=== PATIENT | male | born 1975 | race Caucasian/White ===

== ENCOUNTER 2024-05-24 11:46 | Inpatient (IN) | payer MEDICAID ==
[2024-05-22 10:54] LABS: BASOPHILS % (AUTO) 0.4 % (0-1); EOSINOPHILS # (AUTO) 0.1 X10'3 (0-0.9); EOSINOPHILS % (AUTO) 0.7 % (0-6); LYMPHOCYTES # (AUTO) 2.5 X10'3 (1.1-4.8); LYMPHOCYTES % (AUTO) 24.1 % (21-51); MEAN CORPUSCULAR HEMOGLOBIN 31.5 PG (27.0-31.0); MEAN CORPUSCULAR HGB CONC 34.3 g/dL (33.0-36.5); MEAN CORPUSCULAR VOLUME 91.7 FL (78-98); MEAN PLATELET VOLUME 7.8 FL (7.4-10.4); MONOCYTES # (AUTO) 0.8 X10'3 (0-0.9); MONOCYTES % (AUTO) 8.3 % (2-12); NEUTROPHILS # (AUTO) 6.8 X10'3 (1.8-7.7); NEUTROPHILS % (AUTO) 66.5 % (42-75); PRE OP HEMATOCRIT 42.4 % (42.0-52.0); PRE OP HEMOGLOBIN 14.6 g/dL (14.0-17.9); PRE OP PLATELET COUNT 297 X10'3 (140-440); PRE OP WHITE BLOOD COUNT 10.2 10'3 (4.8-10.8); RED BLOOD COUNT 4.62 X10'6 (4.70-6.10)
[2024-05-22 10:56] LABS: BILIRUBIN,URINE NEGATIVE (Neg); CLARITY,URINE CLEAR (Clear); COLOR,URINE STRAW (Yellow); GLUCOSE, URINE NEGATIVE (Neg); KETONES,URINE NEGATIVE (Neg); LEUKOCYTE ESTERASE ,URINE NEGATIVE (Neg); NITRITES, URINE NEGATIVE (Neg); OCCULT BLOOD,URINE NEGATIVE (Neg); PROTEIN,URINE NEGATIVE (Neg); UROBILINOGEN,URINE 0.2 E.U/dL (0.2-1.0)
[2024-05-22 11:03] LABS: UA COLLECTION TYPE CLN CATCH MIDSTREAM
[2024-05-22 11:07] LABS: PRE OP PROTIME 10.8 SECONDS (9.0-12.0)
[2024-05-22 11:12] LABS: ALBUMIN 4.2 G/DL (3.4-5.0); ALBUMIN/GLOBULIN RATIO 1.1 (1.1-1.5); ALKALINE PHOSPHATASE 55 IU/L (46-116); BLOOD UREA NITROGEN 11 MG/DL (7-18); BUN/CREATININE RATIO 14.1 (10.0-20.0); CALCIUM 9.3 MG/DL (8.5-10.1); CHLORIDE 101 MMOL/L (99-107); CREATININE 0.78 MG/DL (0.60-1.10); PRE OP ALT 20 U/L (30-65); PRE OP ANION GAP 4 (8-16); PRE OP AST 16 U/L (10-37); PRE OP BILIRUB, TOTAL 0.3 MG/DL (0.0-1.0); PRE OP GLUCOSE 95 MG/DL (70-104); PRE OP POTASSIUM 3.5 MMOL/L (3.4-5.1); PRE OP SODIUM 140 MMOL/L (135-145); TOTAL PROTEIN 7.9 G/DL (6.4-8.2); eGFR > 90 ML/MIN
[2024-05-23 22:00] VITALS: BP 131/80; PULSE 69; RESP 18; TEMP 97.8; O2SAT 96
[~2024-05-24] VITALS: Ht 172.7 cm; Wt 82.2 kg
[2024-05-24] VITALS (20 sets, daily range): BP systolic 119–162; BP diastolic 57–105; PULSE 56–102; RESP 14–22; TEMP 98.4; O2SAT 90–98
[2024-05-24] MEDS: ceFAZolin 2gm in dextrose, iso 50 ML IV ONE (05:30)
[~2024-05-24 11:46] MED LIST: BUSP15TA7 PO; DOXY100T2 PO; ESCI-8 PO; GABA300C PO; HYDR25TA5 PO; LURA120T2 PO; OMEP40CA21 PO; ONDA-243 PO
[2024-05-24] MEDS: famotidine 20mg tablet PO ONE (12:46)
[2024-05-24] MEDS: ringers solution, lacted 1,000 ML IV SCH ×2 (12:47→22:12)
[2024-05-24] MEDS ORDERED: BUPIVAcaine 2.5mg/ml inj 50ml vial (contains preservative) ONE (14:12)
[2024-05-24] MEDS ORDERED: morphine 2 MG/ML inj. syringe IV PRN (14:20)
[2024-05-24] MEDS ORDERED: proCHLORperazine 10 MG/2 ml inj IV PRN (14:20)
[2024-05-24] MEDS ORDERED: labetalol 20mg/4ml (5mg/ml) syringe IV PRN (14:20)
[2024-05-24] MEDS ORDERED: HYDROmorphone/PF 0.2 MG/ML SYRINGE IV PRN (14:20)
[2024-05-24] MEDS ORDERED: meperidine/PF 25mg/ml syringe IV PRN (14:20)
[2024-05-24] MEDS ORDERED: hydrALAZINE 20mg/ml inj. IV PRN (14:20)
[2024-05-24] MEDS ORDERED: sevoflurane 250ml liquid IH ONE (14:21)
[2024-05-24] MEDS ORDERED: midazolam 1 mg/ML 2ml injection ONE (14:30)
[2024-05-24] MEDS ORDERED: dexamethasone sod phosphate 4mg/ml inj. ONE (14:56)
[2024-05-24] MEDS ORDERED: LIDOcaine 2% (20mg/ml) 5ml vial ONE (14:56)
[2024-05-24] MEDS ORDERED: ondansetron/PF 4mg/2ml inj ONE (14:56)
[2024-05-24] MEDS ORDERED: fentaNYL /PF 50mcg/ml 5ml ampule ONE (14:56)
[2024-05-24] MEDS ORDERED: propofol inj 20 ML IV ONE (14:56)
[2024-05-24] MEDS ORDERED: rocuronium 10mg/ml inj IV ONE ×2 (14:56→15:00)
[2024-05-24] MEDS ORDERED: neostigmine methylsulfate 1 MG/ML 10ml vial ONE (17:07)
[2024-05-24] MEDS ORDERED: glycopyrrolate 0.2mg/ml inj ONE (17:07)
[2024-05-24] MEDS ORDERED: sugammadex 200mg/2ml injection IV ONE (17:10)
[2024-05-24] MEDS: HYDROmorphone/PF 0.2 MG/ML SYRINGE IV PRN (17:27)
[2024-05-24] MEDS: acetaminophen 1,000mg/100ml IV 100 ML IV PRN (17:28)
[2024-05-24] MEDS ORDERED: naloxone 0.4 mg/ml inj IV PRN (17:35)
[2024-05-24] MEDS: morphine 4 MG/ML inj SYRINge IV PRN (17:41)
[2024-05-24] MEDS: HYDROcodone/acetaminophen 10/325mg tab PO PRN (17:53)
[2024-05-24] MEDS: HYDROmorphone inj. 0.5 MG/0.5 ML DISP.SYRIN IV PRN (22:06)
[2024-05-25 02:00] VITALS: BP 122/82; PULSE 71; RESP 18; TEMP 98; O2SAT 96
[2024-05-25 06:00] VITALS: BP 123/80; PULSE 73; RESP 18; TEMP 98.2; O2SAT 95
[2024-05-25 09:38] LABS: BASOPHILS % (AUTO) 0.3 % (0-1); EOSINOPHILS % (AUTO) 0.3 % (0-6); HEMATOCRIT 42.9 % (42.0-52.0); HEMOGLOBIN 14.4 g/dl (14.0-17.9); LYMPHOCYTES # (AUTO) 1.7 X10'3 (1.1-4.8); LYMPHOCYTES % (AUTO) 9.1 % (21-51); MEAN CORPUSCULAR HEMOGLOBIN 30.6 PG (27.0-31.0); MEAN CORPUSCULAR HGB CONC 33.5 g/dL (33.0-36.5); MEAN CORPUSCULAR VOLUME 91.4 FL (78-98); MONOCYTES # (AUTO) 1.6 X10'3 (0-0.9); MONOCYTES % (AUTO) 8.7 % (2-12); NEUTROPHILS # (AUTO) 14.9 X10'3 (1.8-7.7); NEUTROPHILS % (AUTO) 81.6 % (42-75); PLATELET COUNT 288 X10'3 (140-440); RED BLOOD COUNT 4.69 X10'6 (4.70-6.10); RED CELL DISTRIBUTION WIDTH 14.2 % (11.5-14.5); WHITE BLOOD COUNT 18.3 X10'3 (4.5-11.0)
[2024-05-25] MEDS: ceFOXitin sod/dextrose 2g/50ml 50 ML IV SCH (14:16)
[2024-05-25] MEDS: ondansetron/PF 4mg/2ml inj IV PRN (14:19)
[2024-05-25 18:00] VITALS: BP 173/87; PULSE 85; RESP 18; TEMP 98.2; O2SAT 96
[2024-05-25] MEDS: lurasidone 60mg tablet PO SCH (20:26)
[2024-05-25] MEDS: busPIRone 15mg tablet PO SCH (20:26)
[2024-05-25] MEDS: gabapentin 300mg capsule PO SCH (20:26)
[2024-05-25 22:00] VITALS: BP 131/85; PULSE 88; RESP 18; TEMP 97; O2SAT 92
[2024-05-26 06:00] VITALS: BP 161/94; PULSE 95; RESP 16; TEMP 97.5; O2SAT 93
[2024-05-26 07:48] VITALS: RESP 18; O2SAT 97
[2024-05-26 08:00] VITALS: RESP 18
[2024-05-26] MEDS: HYDROchlorothiazide 25mg tablet PO SCH (09:20)
[2024-05-26] MEDS: pantoprazole 40mg Tablet.DR PO SCH (09:20)
[2024-05-26] MEDS: ESCITALOPRAM 10 mg tablet 10 MG TABLET PO SCH (09:32)
[2024-05-26 12:21] VITALS: BP 150/93; PULSE 93; RESP 16; TEMP 97.2; O2SAT 96
[2024-05-26 15:17] LABS: BASOPHILS % (AUTO) 0.3 % (0-1); EOSINOPHILS # (AUTO) 0.3 X10'3 (0-0.9); EOSINOPHILS % (AUTO) 1.6 % (0-6); HEMATOCRIT 41.2 % (42.0-52.0); HEMOGLOBIN 14.1 g/dl (14.0-17.9); MEAN CORPUSCULAR HEMOGLOBIN 30.9 PG (27.0-31.0); MEAN CORPUSCULAR HGB CONC 34.1 g/dL (33.0-36.5); MEAN CORPUSCULAR VOLUME 90.7 FL (78-98); MEAN PLATELET VOLUME 7.4 FL (7.4-10.4); MONOCYTES # (AUTO) 1.4 X10'3 (0-0.9); MONOCYTES % (AUTO) 8.6 % (2-12); NEUTROPHILS # (AUTO) 12.7 X10'3 (1.8-7.7); NEUTROPHILS % (AUTO) 77.5 % (42-75); PLATELET COUNT 253 X10'3 (140-440); RED BLOOD COUNT 4.55 X10'6 (4.70-6.10); RED CELL DISTRIBUTION WIDTH 14.3 % (11.5-14.5); WHITE BLOOD COUNT 16.4 X10'3 (4.5-11.0)
[2024-05-26 18:02] VITALS: BP 142/81; PULSE 91; RESP 16; TEMP 98; O2SAT 97
[2024-05-26] MEDS: diatr meglu/diatrizoate 30ml oral sol.-(3 dose) bottle PO SCH (21:17)
[2024-05-27 06:00] VITALS: BP 124/69; PULSE 81; RESP 16; TEMP 98.2; O2SAT 96
[2024-05-27 08:00] VITALS: RESP 16; O2SAT 96
[2024-05-27 10:00] VITALS: BP 121/77; PULSE 88; RESP 14; TEMP 97.6; O2SAT 97
[2024-05-27 18:00] VITALS: BP 125/85; PULSE 86; RESP 16; TEMP 98.8; O2SAT 96
[2024-05-27 20:00] VITALS: RESP 16; O2SAT 96
[2024-05-27 22:00] VITALS: BP 119/78; PULSE 74; RESP 16; TEMP 97; O2SAT 95
[2024-05-28 06:00] VITALS: BP 112/82; PULSE 84; RESP 18; TEMP 97.5; O2SAT 96
[2024-05-28 06:10] LABS: BASOPHILS % (AUTO) 0.3 % (0-1); EOSINOPHILS # (AUTO) 0.4 X10'3 (0-0.9); HEMATOCRIT 39.9 % (42.0-52.0); HEMOGLOBIN 13.8 g/dl (14.0-17.9); LYMPHOCYTES % (AUTO) 16.5 % (21-51); MEAN CORPUSCULAR HEMOGLOBIN 31.4 PG (27.0-31.0); MEAN CORPUSCULAR HGB CONC 34.5 g/dL (33.0-36.5); MEAN CORPUSCULAR VOLUME 90.9 FL (78-98); MEAN PLATELET VOLUME 8.1 FL (7.4-10.4); MONOCYTES # (AUTO) 1.6 X10'3 (0-0.9); MONOCYTES % (AUTO) 12.8 % (2-12); NEUTROPHILS # (AUTO) 8.3 X10'3 (1.8-7.7); NEUTROPHILS % (AUTO) 67.4 % (42-75); PLATELET COUNT 272 X10'3 (140-440); RED BLOOD COUNT 4.39 X10'6 (4.70-6.10); WHITE BLOOD COUNT 12.4 X10'3 (4.5-11.0)
[2024-05-28 10:00] VITALS: BP 128/85; PULSE 94; RESP 16; TEMP 98; O2SAT 96
[2024-05-28] MEDS: HYDROcodone/acetaminophen 10/325mg tab PO PRN (11:21)
[2024-05-28 22:00] VITALS: BP 146/92; PULSE 94; RESP 16; TEMP 97.6; O2SAT 95
[2024-05-28] MEDS: magnesium hydroxide 30ml (MOM) UD suspension PO SCH (22:25)
[2024-05-29 06:00] VITALS: BP 112/74; PULSE 75; RESP 13; TEMP 98.4; O2SAT 94
[2024-05-29 10:00] VITALS: BP 135/86; PULSE 83; RESP 16; TEMP 98; O2SAT 93
[2024-05-29 19:00] VITALS: RESP 16; O2SAT 96
[2024-05-30 06:00] VITALS: BP 132/88; PULSE 85; RESP 16; TEMP 97.8; O2SAT 95
[2024-05-30 10:00] VITALS: BP 133/81; PULSE 86; RESP 18; TEMP 98.1; O2SAT 94
[2024-05-30 15:45] VITALS: RESP 15
== END 2024-05-30 16:35 | disposition home or self-care (01) | DRG 224 ==
LOC: PAS 11:46 → OBSVTOIN 17:34 → ORTHO 4S 17:34
PROVIDERS: ADMIT Surgery; ATTEND Surgery
PROC: 0DN84ZZ Release Small Intestine, Percutaneous Endoscopic Approach (ICD-10-PCS; 2024-05-24)
PROC: 0WUF4JZ Supplement Abdominal Wall with Synthetic Substitute, Percutaneous Endoscopic Approach (ICD-10-PCS; principal; 2024-05-24 14:21)
DX: K43.2 Incisional hernia without obstruction or gangrene (principal); K66.0 Peritoneal adhesions (postprocedural) (postinfection); Z88.8 Allergy status to other drugs, medicaments and biological substances
CPT/HCPCS: 36415; 71045; 74176; 80053; 81003; 82948; 85025; 85610; 85730; 86885; 86900; 86901; 87081; 93005; A4215; A4615; A4618; A6222; A6223; A6253; A6258; C1758; C1781; G0378; J0131; J0690; J0694; J1100; J1171; J2003; J2250; J2270; J2405; J2704; J2710; J3010; J3490; J7040; J7120; Q9963

== ENCOUNTER 2024-08-15 08:09 | Outpatient (CLI) | payer MEDICAID ==
[~2024-08-15 08:09] MED LIST changes: -DOXY100T2 PO
--- NOTE | 2024-08-15 09:00 | RADIOLOGY REPORT ---
CT ABDOMEN AND PELVIS WITHOUT CONTRAST CLINICAL HISTORY: ABDOMINAL PAIN S/P INCISIONAL HERNIA TECHNIQUE: Multiple contiguous axial images of the abdomen and pelvis without intravenous and with or al contrast. The images were reformatted degenerate coronal and sagittal reconstructions. All CT scans at this medical facility are performed using dose modulation techniques as appropriate t o a performed exam including the following:Automated exposure control was utilized; adjustment of the MA and/or KV according to patient size; and use of iterative reconstruction technique. Radiation Dose Information: CT Dose: CTDI volume is 12 mGy. Dose-length product is 626 mGy*cm Comparison: 05/27/2024 FINDINGS: Evaluation of the abdomen and pelvis is limited without intravenous contrast. The gallbladder is surgically absent. The liver, pancreas, kidneys, adrenal glands, and spleen britta ear within normal limits. There is no gross evidence of abdominal lymphadenopathy. There is no free fluid or free air. There is oral contrast in the small and large bowel. The stomach grossly appears within normal limits . The small and large bowel loops demonstrate normal caliber. There are diverticula in the sigmoid co sarah without evidence of acute diverticulitis. The appendix is not seen in the right lower quadrant ab domen. There are no secondary signs of acute appendicitis. The abdominal aorta and IVC appear within normal limits. The bladder appears unremarkable. There is a penile pump reservoir in the left upper abdomen which appears uncomplicated. Pelvic organ appears within normal limits. There is no evidence of a pelvic mass or lymphadenopathy. There is no free flu id collection. The lung bases are clear. There is no acute osseous abnormality. IMPRESSION: 1. There is no acute process in the abdomen and pelvis. 2. Sigmoid diverticulosis without evidence of acute diverticulitis. HS:Y
== END 2024-08-15 23:59 | disposition home or self-care (01) ==
LOC: RAD 08:09
PROVIDERS: ATTEND Surgery
DX: K57.30 Diverticulosis of large intestine without perforation or abscess without bleeding (principal); R10.9 Unspecified abdominal pain
CPT/HCPCS: 74176

== ENCOUNTER 2024-09-27 06:07 | Inpatient (IN) | payer MEDICAID ==
[2024-09-25 14:06] LABS: BASOPHILS # (AUTO) 0.1 X10'3 (0-0.2); BASOPHILS % (AUTO) 0.7 % (0-1); EOSINOPHILS # (AUTO) 0.1 X10'3 (0-0.9); EOSINOPHILS % (AUTO) 1.2 % (0-6); LYMPHOCYTES # (AUTO) 2.9 X10'3 (1.1-4.8); LYMPHOCYTES % (AUTO) 36.2 % (21-51); MEAN CORPUSCULAR HEMOGLOBIN 30.5 PG (27.0-31.0); MEAN CORPUSCULAR HGB CONC 34.5 g/dL (33.0-36.5); MEAN CORPUSCULAR VOLUME 88.6 FL (78-98); MEAN PLATELET VOLUME 7.4 FL (7.4-10.4); MONOCYTES # (AUTO) 0.8 X10'3 (0-0.9); NEUTROPHILS # (AUTO) 4.1 X10'3 (1.8-7.7); NEUTROPHILS % (AUTO) 51.9 % (42-75); PRE OP HEMATOCRIT 45.2 % (42.0-52.0); PRE OP HEMOGLOBIN 15.6 g/dL (14.0-17.9); PRE OP PLATELET COUNT 304 X10'3 (140-440); PRE OP WHITE BLOOD COUNT 7.9 10'3 (4.8-10.8); RED CELL DISTRIBUTION WIDTH 13.9 % (11.5-14.5)
[2024-09-25 14:12] LABS: BILIRUBIN,URINE NEGATIVE (Neg); CLARITY,URINE CLEAR (Clear); COLOR,URINE YELLOW (Yellow); GLUCOSE, URINE NEGATIVE (Neg); KETONES,URINE NEGATIVE (Neg); LEUKOCYTE ESTERASE ,URINE NEGATIVE (Neg); NITRITES, URINE NEGATIVE (Neg); OCCULT BLOOD,URINE NEGATIVE (Neg); PROTEIN,URINE NEGATIVE (Neg); UROBILINOGEN,URINE 0.2 E.U/dL (0.2-1.0)
[2024-09-25 14:16] LABS: UA COLLECTION TYPE CLN CATCH MIDSTREAM
[2024-09-25 14:31] LABS: PRE OP PROTIME 10.6 SECONDS (9.0-12.0)
[2024-09-25 14:35] LABS: ALBUMIN/GLOBULIN RATIO 1.3 (1.1-1.5); ALKALINE PHOSPHATASE 63 IU/L (46-116); BLOOD UREA NITROGEN 10 MG/DL (7-18); BUN/CREATININE RATIO 9.8 (10.0-20.0); CALCIUM 9.2 MG/DL (8.5-10.1); CHLORIDE 103 MMOL/L (99-107); CREATININE 1.02 MG/DL (0.60-1.10); PRE OP ALT 19 U/L (30-65); PRE OP ANION GAP 11 (8-16); PRE OP AST 18 U/L (10-37); PRE OP BILIRUB, TOTAL 0.3 MG/DL (0.0-1.0); PRE OP GLUCOSE 96 MG/DL (70-104); PRE OP POTASSIUM 3.8 MMOL/L (3.4-5.1); PRE OP SODIUM 143 MMOL/L (135-145); TOTAL PROTEIN 7.2 G/DL (6.4-8.2); eGFR 79 ML/MIN
[2024-09-27] VITALS (24 sets, daily range): BP systolic 116–163; BP diastolic 69–98; PULSE 56–86; RESP 12–20; TEMP 97.9–99.1; O2SAT 90–98
[~2024-09-27] VITALS: Ht 172.7 cm; Wt 73.6 kg
[2024-09-27] MEDS: ceFOXitin sod/dextrose 2g/50ml 50 ML IV ONE (05:30)
[2024-09-27] MEDS: famotidine 20mg tablet PO ONE (06:32)
[2024-09-27] MEDS: ringers solution, lacted 1,000 ML IV SCH ×2 (06:32→08:30)
[2024-09-27] MEDS ORDERED: BUPIVAcaine 2.5mg/ml inj 50ml vial (contains preservative) ONE (06:46)
[2024-09-27] MEDS ORDERED: BUPIVACAINE liposomal/PF 13.3 MG/ML 10mL vial IM ONE (06:47)
[2024-09-27] MEDS ORDERED: ondansetron/PF 4mg/2ml inj ONE (07:45)
[2024-09-27] MEDS ORDERED: rocuronium 10mg/ml inj IV ONE ×2 (07:45→09:47)
[2024-09-27] MEDS ORDERED: midazolam 1 mg/ML 2ml injection ONE (07:45)
[2024-09-27] MEDS ORDERED: fentaNYL /PF 50mcg/ml 5ml ampule ONE (07:45)
[2024-09-27] MEDS ORDERED: dexamethasone sod phosphate 4mg/ml inj. ONE (07:45)
[2024-09-27] MEDS ORDERED: propofol inj 20 ML IV ONE (07:46)
[2024-09-27] MEDS ORDERED: LIDOcaine 2% (20mg/ml) 5ml vial ONE (07:46)
[2024-09-27] MEDS ORDERED: ondansetron/PF 4mg/2ml inj IV PRN (08:30)
[2024-09-27] MEDS ORDERED: hydrALAZINE 20mg/ml inj. IV PRN (08:30)
[2024-09-27] MEDS ORDERED: fentaNYL/PF 50MCG/1 ML 2ML syringe IV PRN (08:30)
[2024-09-27] MEDS ORDERED: meperidine/PF 25mg/ml syringe IV PRN (08:30)
[2024-09-27] MEDS ORDERED: labetalol 20mg/4ml (5mg/ml) syringe IV PRN (08:30)
[2024-09-27] MEDS ORDERED: ketamine 50mg/5ml syringe IV PRN (08:30)
[2024-09-27] MEDS ORDERED: dexmedetomidine 200mcg/2ml inj. IV ONE (08:36)
[2024-09-27] MEDS ORDERED: acetaminophen 1,000mg/100ml IV 100 ML IV ONE (08:43)
[2024-09-27] MEDS ORDERED: sevoflurane 250ml liquid IH ONE (09:00)
[2024-09-27] MEDS ORDERED: hydrALAZINE 20mg/ml inj. ONE (09:14)
[2024-09-27] MEDS ORDERED: labetalol 20mg/4ml (5mg/ml) syringe IV ONE (09:23)
[2024-09-27] MEDS: BUPIVAcaine/PF 2.5 mg/ml (0.25%) 30ml vial IJ ONE (09:36)
[2024-09-27] MEDS ORDERED: sugammadex 200mg/2ml injection IV ONE (10:16)
--- NOTE | 2024-09-27 11:32 | OPERATIVE REPORT ---
Operative Report Providers to CC ~ Date of Procedure: Sep 27, 2024 Pre-Operative Diagnosis: recurrent incisional hernia Post-Operative Diagnosis SAME as PRE-Op Procedure Performed robo santo/repair incisional hernia Surgeon: maria eugenia davies Anesthesiologist: Chucho Callahan Type of Anesthesia: General Findings: small incisional hernia Estimated Blood Loss: 100 ml Specimen Removed: none ANGELITO DURBIN MD Sep 27, 2024 11:32
[2024-09-27] MEDS ORDERED: naloxone 0.4 mg/ml inj IV PRN (11:40)
[2024-09-27] MEDS: potassium CL 20mEq in D5-1/2NS 1,000 ML IV SCH (11:40)
[2024-09-27] MEDS ORDERED: PCA WASTE DOCUMENTATION 1 MG ML MC SCH (11:40)
[2024-09-27] MEDS: fentaNYL/PF 50MCG/1 ML 2ML syringe IV PRN (12:29)
[2024-09-27] MEDS: ketorolac trometh 15mg/ml vial 15 MG/ML ML IV ONE (12:30)
[2024-09-27] MEDS: HYDROmorphone/PF 0.2 MG/ML SYRINGE IV PRN ×2 (13:58→16:02)
--- NOTE | 2024-09-27 15:36 | OPERATIVE REPORT ---
DATE OF SURGERY: 09/27/2024 DICTATING PHYSICIAN: Heladio Westbrook MD PREOPERATIVE DIAGNOSIS: Recurrent incisional hernia. POSTOPERATIVE DIAGNOSIS: Recurrent incisional hernia. PROCEDURES PERFORMED: * Robotic repair of recurrent incisional hernia less than 3 cm. * Robotic lysis of adhesions. SURGEON: Heladio Westbrook MD COMMISSION BROKER: None. ANESTHESIA: General/Dr. Callahan. DRAINS: None. INDICATIONS FOR OPERATION: A 48-year-old male who developed a recurrent incisional hernia, taken to Surgery for repair. INTRAOPERATIVE FINDINGS: The patient had extensive adhesions, had a small recurrent incisional hernia. DESCRIPTION OF PROCEDURE: The patient was placed supine on the operating table. After induction of general anesthesia and placement of endotracheal tube, the abdomen was prepped and draped. A timeout was performed. Veress needle was placed in Gamble's point. CO2 was used to insufflate the abdominal cavity. Visiport was used to access the abdominal cavity. Robotic ports were placed under laparoscopic vision. Robot was brought to the field. Camera port docked, camera placed, camera targeted. Additional ports were then docked and instruments placed. Abdomen was then explored. The patient had extensive adhesions, taken down robotically. After mobilization and takedown of the adhesions, a small defect was present. A piece of mesh was then brought and secured in place with a 15 x 20 piece of mesh using sutures of 2-0 V-Loc. Abdomen was copiously irrigated with a large amount of antibiotic-containing solution. Hemostasis was found to be adequate. Robotic instruments were removed. Robot undocked from the field. Visiport was then removed and the defect was closed using sutures of #1 Vicryl. Pneumoperitoneum was then evacuated. The wounds were closed in layers. Skin was closed with clips. Dressings were applied, and the patient was transferred to recovery in stable condition. Heladio Westbrook MD TID: [id number] RECEIPT: [id number] TIFFANIE/YOK
[2024-09-27] MEDS: HYDROcodone/acetaminophen 10/325mg tab PO PRN (17:48)
[2024-09-27] MEDS: ondansetron/PF 4mg/2ml inj IV PRN (19:10)
[2024-09-27] MEDS: ceFAZolin 1GM/D5W- ADD-VANTAGE 50 ML IV SCH (21:09)
[2024-09-27] MEDS: HYDROmorphone inj. 0.5 MG/0.5 ML DISP.SYRIN IV PRN (23:38)
[2024-09-28] VITALS (7 sets, daily range): BP systolic 141–196; BP diastolic 98–125; PULSE 75–132; RESP 18–22; TEMP 97.8–98.4; O2SAT 94–95
[2024-09-28] MEDS: hydrALAZINE 20mg/ml inj. IV PRN (03:06)
[2024-09-28] MEDS: acetaminophen 1,000mg/100ml IV 100 ML IV ONE (06:08)
[2024-09-28 06:31] LABS: BASOPHILS % (AUTO) 0.1 % (0-1); EOSINOPHILS % (AUTO) 0 % (0-6); HEMATOCRIT 46.2 % (42.0-52.0); HEMOGLOBIN 15.6 g/dl (14.0-17.9); LYMPHOCYTES # (AUTO) 0.6 X10'3 (1.1-4.8); LYMPHOCYTES % (AUTO) 2.4 % (21-51); MEAN CORPUSCULAR HEMOGLOBIN 30.1 PG (27.0-31.0); MEAN CORPUSCULAR HGB CONC 33.7 g/dL (33.0-36.5); MEAN CORPUSCULAR VOLUME 89.2 FL (78-98); MONOCYTES # (AUTO) 1.6 X10'3 (0-0.9); MONOCYTES % (AUTO) 6.8 % (2-12); NEUTROPHILS # (AUTO) 21.8 X10'3 (1.8-7.7); NEUTROPHILS % (AUTO) 90.7 % (42-75); PLATELET COUNT 287 X10'3 (140-440); RED BLOOD COUNT 5.18 X10'6 (4.70-6.10); RED CELL DISTRIBUTION WIDTH 14.2 % (11.5-14.5)
--- NOTE | 2024-09-28 06:37 | RADIOLOGY REPORT ---
Exam: DI ABDOMEN,SINGLE VIEW(KUB) Indication: ABDOMINAL PAIN Comparison: None Technique: 2 radiographic views of the abdomen. Findings: Moderate colonic stool. Nonobstructive bowel gas pattern noted. There is no definite evidence for pneumoperitoneum. No abnormal calcifications noted. Impression: Moderate colonic stool.
[2024-09-28 06:44] LABS: ALBUMIN 3.3 G/DL (3.4-5.0); ALKALINE PHOSPHATASE 51 IU/L (46-116); ANION GAP 8 (8-16); ASPARTATE AMINO TRANSFERASE 25 U/L (10-37); BILIRUBIN,TOTAL 0.5 MG/DL (0.1-1.0); BLOOD UREA NITROGEN 7 MG/DL (7-18); BUN/CREATININE RATIO 9.6 (10.0-20.0); CALCIUM 8.2 MG/DL (8.5-10.1); CHLORIDE 105 MMOL/L (99-107); CREATININE 0.73 MG/DL (0.60-1.10); GLUCOSE 158 MG/DL (70-104); POTASSIUM 3.3 MMOL/L (3.5-5.1); SODIUM 140 MMOL/L (135-145); TOTAL CARBON DIOXIDE 26.9 MMOL/L (24-32); TOTAL PROTEIN 6.5 G/DL (6.4-8.2); eCRCL 122 ML/MIN; eGFR > 90 ML/MIN
[2024-09-28 07:00] LABS: ALANINE AMINOTRANSFERASE 15 U/L (12-78)
[2024-09-28] MEDS: lurasidone 60mg tablet PO ONE (10:55)
--- NOTE | 2024-09-28 11:22 | PROGRESS NOTE ---
Progress Note ID Providers to CC ~ Progress Note Progress Note: complains of pain/vss/abd-mild distention/labs noted a/p 1. s/p incisional hernia-slow progress/cont antbix ANGELITO DURBIN MD Sep 28, 2024 11:22
[2024-09-28] MEDS: metoclopramide 5 mg/ml inj IV SCH (13:24)
[2024-09-28] MEDS: HYDROmorphone 1 mg/ml syringe IV PRN (13:51)
[2024-09-28] MEDS: ketorolac trometh 30MG/ML vial 30 MG/ML VIAL IM PRN (13:51)
[2024-09-28] MEDS: ceFOXitin sod/dextrose 2g/50ml 50 ML IV SCH (13:51)
[2024-09-28] MEDS ORDERED: potassium Cl 40MEQ/1/2NS 520ml 520 ML IV PRN (14:15)
[2024-09-28] MEDS ORDERED: potassium Cl 20 mEq SR tablet PO PRN (14:15)
[2024-09-28] MEDS: magnesium hydroxide 30ml (MOM) UD suspension PO SCH (19:45)
[2024-09-29 02:00] VITALS: BP 146/72; PULSE 82; RESP 20; TEMP 98.3; O2SAT 96
[2024-09-29 06:49] VITALS: BP 124/85; PULSE 118; RESP 20; TEMP 98.7; O2SAT 94
[2024-09-29 08:00] VITALS: RESP 18
[2024-09-29] MEDS ORDERED: naloxone 0.4 mg/ml inj IV PRN (10:30)
[2024-09-29 10:51] LABS: BASOPHILS % (AUTO) 0.1 % (0-1); EOSINOPHILS % (AUTO) 0.2 % (0-6); HEMOGLOBIN 15.2 g/dl (14.0-17.9); LYMPHOCYTES # (AUTO) 0.6 X10'3 (1.1-4.8); LYMPHOCYTES % (AUTO) 4.3 % (21-51); MEAN CORPUSCULAR HEMOGLOBIN 30.1 PG (27.0-31.0); MEAN CORPUSCULAR HGB CONC 33.9 g/dL (33.0-36.5); MEAN CORPUSCULAR VOLUME 88.8 FL (78-98); MEAN PLATELET VOLUME 8.2 FL (7.4-10.4); MONOCYTES # (AUTO) 0.7 X10'3 (0-0.9); MONOCYTES % (AUTO) 4.9 % (2-12); NEUTROPHILS # (AUTO) 13.3 X10'3 (1.8-7.7); NEUTROPHILS % (AUTO) 90.5 % (42-75); PLATELET COUNT 288 X10'3 (140-440); RED BLOOD COUNT 5.07 X10'6 (4.70-6.10); WHITE BLOOD COUNT 14.6 X10'3 (4.5-11.0)
--- NOTE | 2024-09-29 10:51 | PROGRESS NOTE ---
Progress Note ID Providers to CC ~ Progress Note Progress Note: complains of pain/vss/abd-nondistended/labs pending a/p 1. s/p robo hernia repair/hris specialist ANGELITO DURBIN MD Sep 29, 2024 10:51
[2024-09-29] MEDS: HYDROmorph/NS 0.2 mg/ml PCA 100 ML IV SCH (11:00)
[2024-09-29] MEDS: pantoprazole 40mg Tablet.DR PO SCH (11:10)
[2024-09-29 14:30] VITALS: BP 146/99; PULSE 123; RESP 14; TEMP 98; O2SAT 95
[2024-09-29 18:00] VITALS: BP 148/107; PULSE 132; RESP 16; TEMP 98.7; O2SAT 93
[2024-09-29] MEDS: potassium Cl 20 mEq SR tablet PO PRN (19:57)
[2024-09-29] MEDS ORDERED: ondansetron 4mg rapidly disintigrating tab PO PRN (20:45)
[2024-09-29] MEDS: busPIRone 15mg tablet PO SCH (21:10)
[2024-09-29] MEDS: ESCITALOPRAM 10 mg tablet 10 MG TABLET PO SCH (21:11)
[2024-09-29] MEDS: HYDROchlorothiazide 25mg tablet PO SCH (21:11)
[2024-09-29] MEDS: gabapentin 300mg capsule PO SCH (21:12)
[2024-09-29 22:00] VITALS: BP 143/94; PULSE 130; RESP 20; TEMP 97.6; O2SAT 94
[2024-09-29] MEDS: lurasidone 60mg tablet PO SCH (22:02)
[2024-09-30 06:00] VITALS: BP 149/99; PULSE 131; RESP 24; TEMP 98; O2SAT 93
[2024-09-30] MEDS: ketorolac trometh 30MG/ML vial 30 MG/ML VIAL IV PRN (07:09)
[2024-09-30] MEDS: PCA WASTE DOCUMENTATION 1 MG ML MC SCH (07:38)
[2024-09-30] MEDS: pantoprazole 40mg Tablet.DR PO SCH (09:48)
[2024-09-30 11:00] VITALS: BP 168/110; PULSE 116; RESP 15; TEMP 98.7; O2SAT 97
--- NOTE | 2024-09-30 15:40 | PROGRESS NOTE ---
Progress Note ID Providers to CC ~ Progress Note Progress Note: pain improving/vss/abd-mild distention/wbc improving a/p 1. s/p repair incisional hernia-cont mefoxin/cont supportive care ANGELITO DURBIN MD Sep 30, 2024 15:40
[2024-09-30 18:00] VITALS: BP 154/97; PULSE 121; RESP 19; TEMP 99.1; O2SAT 94
[2024-09-30 20:00] VITALS: RESP 19; O2SAT 94
[2024-09-30 22:00] VITALS: BP 150/89; PULSE 124; RESP 23; TEMP 98.2; O2SAT 90
[2024-10-01 06:00] VITALS: BP 147/89; PULSE 120; RESP 18; TEMP 97.8; O2SAT 90
[2024-10-01 08:00] VITALS: RESP 18; O2SAT 90
[2024-10-01 09:47] LABS: BASOPHILS % (AUTO) 0.1 % (0-1); EOSINOPHILS # (AUTO) 0.1 X10'3 (0-0.9); EOSINOPHILS % (AUTO) 0.7 % (0-6); HEMATOCRIT 34.8 % (42.0-52.0); HEMOGLOBIN 11.9 g/dl (14.0-17.9); LYMPHOCYTES # (AUTO) 0.5 X10'3 (1.1-4.8); LYMPHOCYTES % (AUTO) 4.4 % (21-51); MEAN CORPUSCULAR HEMOGLOBIN 30.5 PG (27.0-31.0); MEAN CORPUSCULAR HGB CONC 34.2 g/dL (33.0-36.5); MEAN CORPUSCULAR VOLUME 89.3 FL (78-98); MEAN PLATELET VOLUME 8.5 FL (7.4-10.4); MONOCYTES # (AUTO) 1.6 X10'3 (0-0.9); MONOCYTES % (AUTO) 13.1 % (2-12); NEUTROPHILS # (AUTO) 9.9 X10'3 (1.8-7.7); NEUTROPHILS % (AUTO) 81.7 % (42-75); PLATELET COUNT 233 X10'3 (140-440); RED CELL DISTRIBUTION WIDTH 13.7 % (11.5-14.5); WHITE BLOOD COUNT 12.2 X10'3 (4.5-11.0)
[2024-10-01 10:00] VITALS: BP 158/101; PULSE 118; RESP 18; TEMP 97.7; O2SAT 93
[2024-10-01 11:20] LABS: PLATELET ESTIMATE NORMAL; TOTAL CELLS COUNTED 100
--- NOTE | 2024-10-01 17:08 | PROGRESS NOTE ---
Progress Note ID Providers to CC ~ Progress Note Progress Note: pain improving/vss/abd-mild distention/wbc improving a/p 1. s/p repair incisional hernia-slow progress/advance po ANGELITO DURBIN MD Oct 01, 2024 17:08
[2024-10-01 18:00] VITALS: BP 153/94; PULSE 115; RESP 18; TEMP 97.9; O2SAT 91
[2024-10-01 22:00] VITALS: BP 157/97; PULSE 133; RESP 22; TEMP 97.7; O2SAT 94
[2024-10-02] VITALS (9 sets, daily range): BP systolic 129–187; BP diastolic 80–102; PULSE 85–121; RESP 14–19; TEMP 97.6–98.3; O2SAT 87–95
[2024-10-02] MEDS: furosemide 20 MG/2 ML vial IV ONE (02:04)
[2024-10-02] MEDS: metoprolol tartrate 25mg tablet PO SCH (05:25)
[2024-10-02 10:57] LABS: ALBUMIN 1.9 G/DL (3.4-5.0); ANION GAP 7 (8-16); BLOOD UREA NITROGEN 9 MG/DL (7-18); BUN/CREATININE RATIO 9.9 (10.0-20.0); CALCIUM 8.2 MG/DL (8.5-10.1); CHLORIDE 94 MMOL/L (99-107); CREATININE 0.91 MG/DL (0.60-1.10); GLUCOSE 125 MG/DL (70-104); POTASSIUM 3.7 MMOL/L (3.5-5.1); SODIUM 132 MMOL/L (135-145); TOTAL CARBON DIOXIDE 30.6 MMOL/L (24-32); eCRCL 98 ML/MIN; eGFR 90 ML/MIN
[2024-10-02] MEDS: lactose-reduced food (Ensure Enlive) - 237ml bottle PO SCH (13:00)
[2024-10-02] MEDS: HYDROcodone/acetaminophen 10/325mg tab PO PRN (15:54)
--- NOTE | 2024-10-02 16:54 | PROGRESS NOTE ---
Progress Note ID Providers to CC ~ Progress Note Progress Note: doing well/home in am ANGELITO DURBIN MD Oct 02, 2024 16:54
[2024-10-03 06:00] VITALS: BP 139/90; PULSE 91; RESP 18; TEMP 98; O2SAT 94
[2024-10-03] MEDS: traMADol 50MG tablet PO PRN (09:09)
[2024-10-03 10:00] VITALS: BP 123/78; PULSE 86; RESP 18; TEMP 98.1; O2SAT 92
[2024-10-03 15:10] VITALS: RESP 16
--- NOTE | 2024-10-03 17:41 | PROGRESS NOTE ---
Progress Note ID Providers to CC ~ Progress Note Progress Note: doing well/dc ANGELITO DURBIN MD Oct 03, 2024 17:41
== END 2024-10-03 15:55 | disposition home or self-care (01) | DRG 227 ==
LOC: PAS 06:07 → PAS IN 11:38 → OBSVTOIN 11:38 → SUR 3N 17:21
PROVIDERS: ADMIT Surgery; ATTEND Surgery
PROC: 8E0W4CZ Robotic Assisted Procedure of Trunk Region, Percutaneous Endoscopic Approach (ICD-10-PCS; 2024-09-27)
PROC: 0WUF4JZ Supplement Abdominal Wall with Synthetic Substitute, Percutaneous Endoscopic Approach (ICD-10-PCS; principal; 2024-09-27 08:30)
DX: K43.2 Incisional hernia without obstruction or gangrene (principal); K66.0 Peritoneal adhesions (postprocedural) (postinfection); Z88.8 Allergy status to other drugs, medicaments and biological substances
CPT/HCPCS: 36415; 74018; 80048; 80053; 81003; 82948; 83605; 84132; 84145; 85007; 85025; 85610; 85730; 87081; A4215; A4615; A4618; C1781; G0378; J0131; J0360; J0666; J0690; J0694; J1100; J1171; J1885; J1938; J2003; J2250; J2405; J2704; J2765; J3010; J3480; J3490; J7030; J7040; J7120

== ENCOUNTER 2024-10-13 21:54 | Inpatient (IN) | payer MEDICAID ==
[~2024-10-13] VITALS: Ht 172.7 cm; Wt 68.2 kg
--- NOTE | 2024-10-13 22:10 | Physician Documentation ---
History of Present Illness Chief Complaint: Abdominal Pain Stated Complaint: ABD PAIN Time Seen by MD: 22:10 OK to notify your PCP?: Yes Primary Medical Doctor: TERRANCE RANDHAWA Source: patient, RN/MD, EMS, RN notes reviewed, EMS notes reviewed, old records Mode of Arrival: EMS Exam Limitations: no limitations HPI This patient is a 48-year-old male transferred via EMS to our facility from [facility] for postoperative abdominal abscess. Patient initially presented with increased redness and drainage from his surgical site. Patient's surgery was a proximally three weeks ago and was done by surgeon, Dr. Dobbs. Patient's labs confirmed that he had a white blood cell count of 14.1 and a low potassium of 2.8 which was replaced at the outside facility. Patient was treated with 500 mg of Keflex and 4.5 mg and Zosyn prior to arrival. Patient denies any other associated symptoms at this time. Patient denies any other alleviating or exacerbating factors. Medication Reconciliation Allergies: Coded Allergies: trazodone (Verified Allergy, Unknown, gave me an erection for 5 days, 06/10/14) dicyclomine (Verified Adverse Reaction, Unknown, SWOLLEN STOMACH, 05/22/24) Scheduled Buspirone HCl (Buspirone HCl), 1 TAB PO TID, (Reported) Fluoxetine Hcl* (Prozac*), 1 CAP PO DAILY, (Reported) Gabapentin (Neurontin), 1 CAP PO QID, (Reported) Hydrochlorothiazide (Hydrochlorothiazide), 1 TAB PO DAILY, (Reported) Lisinopril* (Lisinopril*), 1 TAB PO DAILY, (Reported) Omeprazole (Prilosec), 1 CAP PO DAILY, (Reported) Scheduled PRN ONDANSETRON ODT 4mg tablet (Ondansetron Odt), 1 TAB PO DAILY PRN for nausea/vomiting, (Reported) Discontinued Medications Escitalopram Oxalate (Escitalopram Oxalate), 1 TAB PO DAILY, (Reported) Discontinued Reason: patient no longer taking Lurasidone HCl (Lurasidone HCl), 1 TAB PO HS, (Reported) Discontinued Reason: patient no longer taking Past Medical History Past Medical History: Hypertension, Diverticulosis, GERD, Hernia Past Surgical History: abdominal surgery, cholecystectomy Other Past Surgical History: Hernia Repair Smoking Status: Never smoker Alcohol Use: Occasionally Drug Use: marijuana Lives with: Family Lives In: Home Occupation: unemployed Review of Systems All Other Systems at this time: Reviewed and Negative Gastrointestinal: Reports: abdominal pain Physical Exam Vital Signs: RN Vital Signs have been reviewed: Yes, Temperature: 98.8, Source: Oral, Heart Rate: 75, Respiratory Rate: 16, BP: 126/77, Pulse Oximetry: 92, Weight: 72.500 Oxygen Flow Rate: 0 Physical Exam General: The patient is well developed, well nourished, nontoxic appearing and is in no acute distress. Skin: (SEE ABD) Delia, warm and dry with no rashes. HEENT: Head was normocephalic and atraumatic. Eyes - pupils equal, round, reactive to light and accommodation. Extraocular movements were intact. Conjunctivae were nonicteric. Ears - bilateral tympanic membranes were normal. The mouth and oropharynx were clear with moist mucous membranes. There were no pharyngeal exudates or erythema. Neck: Supple and nontender. There was no jugular venous distention, lymphadenopathy, thyromegaly or masses. Chest: Trace wheezing on auscultation, without rales or rhonchi. No accessory muscle use. No dullness to percussion. Heart: Rate regular and rhythmic. S1, S2. No murmurs. Palpation of the chest wall was normal. No rubs or thrills. Abdomen: Training, has been abdomen. Soft, nontender and nondistended. Positive bowel sounds. No guarding or rebound. No hepatosplenomegaly or palpable masses. Extremities: No cyanosis, clubbing or edema. The patient moves all extremities. Pulses were equal and symmetric. Neurologic: Cranial nerves II-XII were intact. Sensation was intact to light touch throughout. Motor strength was 5/5 in all four extremities. Deep tendon reflexes were intact in both upper and lower extremities. Psychologic: The patient was oriented to person, place and time. The patient demonstrated appropriate judgement and insight. Progress Progress Note 2223: Message left with patient's surgeon, Dr. Westbrook for consult. 2239: Paged Hospitalist 2241: Dr. Westbrook contacted and case discussed, agrees to consult. 2323: Discussed case with hospitalist who agrees to evaluate patient for admission. CT abdomen/pelvis from [facility]. Impressions: 1. Postsurgical changes related to recent ventral hernia repair. 2. Multiple communicating rim enhancing fluid and gas containing collections in the anterior abdominal wall and throughout the abdomen and pelvis. 3. Small volume pneumoperitoneum, likely postsurgical. 4. Colonic diverticulosis without diverticulitis Results/Orders Reviewed/noted all lab results: Yes Results/Orders Orders - DIANA CHEW MD Urinalysis, Cult If Indicated (10/13/24 22:04) Cbc/Diff (10/13/24 22:04) BMP (10/13/24 22:04) Lipase (10/13/24 22:04) CMP (10/13/24 22:04) Vital Signs 10/13/24 21:55 Temp 98.8 Pulse 75 Resp 16 B/P (MAP) 126/77 Pulse Ox 92 O2 Flow Rate 0 Re-Evaluation Re-Evaluation : Re-Evaluation: Improved Progress Patient was seen and examined. Patient is given reassurance. The patient was transferred from another facility for continuity care. Patient received pain medications antibiotics were already given prior to arrival. I discussed the case with the hospitalist who kindly agreed to admit the patient for further workup and care. Patient is feeling much better. No signs of sepsis at this time. Cultured. I then discussed the case with the hospitalist as well as the general surgeon. He is aware of the patient and will consult in the morning. Continuous employee representative interpretation shows normal sinus rhythm heart rate 70s, no ectopy, normal, my interpretation. Pulse oximetry monitor interpretation shows normal oxygenation at 95% room air, normal, my interpretation. Medical Decision Making Additional info obtained from: old records Differential Dx:Considerations: Include: Hernia, Inflammatory BD, Ischemic bowel, Other Departure Time of Disposition: 22:23 Disposition: ADMITTED INPATIENT Admitted to Inpatient Unit: yes, to hospitalist, to surgeon Admission Level of Care: Med/Surg with Tele Impression: Primary Impression: Abdominal abscess Additional Impressions: Wound dehiscence Status post hernia repair Condition: Guarded Referrals: NO PRIMARY CARE PROVIDER (PCP) Education Educated: Patient Educated regarding: diagnosis Critical Care Note Total Time (mins): 30 Critical Care Note The very real possibility of a deterioration of this patient's condition required the highest level of my preparedness for sudden, emergent intervention. I provided critical care services, which included medication orders, frequent reevaluations of the patient's condition and response to treatment, ordering and reviewing test results, and discussing the case with various consultants. Excl udes time spent performing separately billable procedures. The critical care time associated with the care of the patient was 30 minutes. Signature Scribe Signature: Scribed for Diana Chew MD by Angela Miramontes. 10/13/24 22:28 Attestation: The note accurately reflects work and decisions made by me.Diana Chew MD 10/13/24 22:10 DIANA CHEW MD Oct 13, 2024 22:10
[2024-10-13 22:28] LABS: MEAN PLATELET VOLUME 6.8 FL (7.4-10.4); RED CELL DISTRIBUTION WIDTH 14.2 % (11.5-14.5)
[2024-10-13 22:42] LABS: CREATININE 0.65 MG/DL (0.60-1.10); TOTAL CARBON DIOXIDE 32.6 MMOL/L (24-32); eCRCL 137 ML/MIN; eGFR > 90 ML/MIN
[2024-10-13 22:44] LABS: APTT 25 SECONDS (22-32); INR 1.1 INR
[2024-10-13 22:51] LABS: BANDS% (MANUAL) 2.0 % (0-10); LYMPHOCYTES % (MANUAL) 16.0 % (21-51); METAMYLEOCYTES% (MANUAL) 1.0 % (0-0); MONOCYTES % (MANUAL) 9.0 % (2-12); MYELOCYTES % (MANUAL) 1.0 % (0-0); NEUTROPHILS % (MANUAL) 71.0 % (42-75); PLATELET ESTIMATE INCREASED
[2024-10-13 22:55] LABS: LEUKOCYTE ESTERASE ,URINE NEGATIVE (Neg); NITRITES, URINE NEGATIVE (Neg); OCCULT BLOOD,URINE NEGATIVE (Neg)
[2024-10-13 22:56] LABS: UA COLLECTION TYPE CLN CATCH MIDSTREAM
[2024-10-13 23:01] LABS: SQUAMOUS EPITHELIAL CELL,UR NONE SEEN /LPF (FEW)
[2024-10-13] MEDS ORDERED: HYDROmorphone/PF 0.2 MG/ML SYRINGE IV PRN (23:30)
[2024-10-13] MEDS ORDERED: magnesium Cl slow-release 64mg tablet PO PRN (23:30)
[2024-10-13] MEDS ORDERED: HYDROmorphone inj. 0.5 MG/0.5 ML DISP.SYRIN IV PRN (23:30)
[2024-10-13] MEDS ORDERED: mag hydrox/Alum hydrox/simeth 30ml oral suspension PO PRN (23:30)
[2024-10-13] MEDS ORDERED: potassium Cl 40MEQ/1/2NS 520ml 520 ML IV PRN (23:30)
[2024-10-13] MEDS ORDERED: magnesium hydroxide 30ml (MOM) UD suspension PO PRN (23:30)
[2024-10-13] MEDS ORDERED: magnesium sulf-water 4G/100mL 100 ML IV PRN (23:30)
[2024-10-13] MEDS ORDERED: bisacodyl 10mg suppository rectal RC PRN (23:30)
[2024-10-13] MEDS ORDERED: magnesium sulf-water 2g/50mL 50 ML IV PRN (23:30)
--- NOTE | 2024-10-13 23:44 | HISTORY AND PHYSICAL-Residence ---
History & Physical Providers to CC Resident Creating Document: IVY CAMPO, RES ~ History of Present Illness Primary Medical Doctor: TERRANCE MEDICAL Reason for Admit\Complaint: Abdominal pain, discharge History of Present Illness This is a 48-year-old male with a history of hypertension was transferred from ED of [facility] for management of abdominal wound infection. Patient states that he noticed some discharge from his surgical site one week ago which was foul-smelling. He did call the office of the surgeon and inform them and was told that would resolve on itself. However the pain and discharge got worse progressively in the last one week and now he has copious discharge from the surgical site. He underwent robotic capable of incisional hernia using mesh, robotic lysis of adhesions by Dr. Westbrook on 09/27/2024. He has festus on the surgical site and is unsure when they were supposed to be removed. He denies any fever and has a about 5/10 abdominal pain at the surgical site. ED course at [place]: Patient was administered Keflex 500 mg and Zosyn 3.[address] was done which showed multiple communicating rim enhancing fluid and gas containing collections in the anterior abdominal wall and throughout the pelvis with largest discrete pockets measured. Small volume pneumoperitoneum likely postsurgical. Patient was also given some potassium replacement. Allergies: Coded Allergies: trazodone (Verified Allergy, Unknown, gave me an erection for 5 days, 06/10/14) dicyclomine (Verified Adverse Reaction, Unknown, SWOLLEN STOMACH, 05/22/24) Home Medications Home Medications Active Reported Prilosec (Omeprazole) 40 Mg Capsule 1 Cap PO DAILY Lurasidone HCl 120 Mg Tablet 1 Tab PO HS Neurontin (Gabapentin) 300 Mg Capsule 1 Cap PO QID Hydrochlorothiazide 25 Mg Tab 1 Tab PO DAILY Buspirone HCl 15 Mg Tablet 1 Tab PO TID Escitalopram Oxalate 10 Mg Tablet 1 Tab PO DAILY Ondansetron Odt (Ondansetron HCl) 4 Mg Tab.rapdis 1 Tab PO DAILY PRN Past Medical History Past Medical History Recurrent hernia, hypertension, anxiety, depression, GERD, fecal incontinence due to anorectal disorder Past Surgical History Surgical History Comment Robotic repair of incisional hernia using mesh, robotic lysis of adhesions, cholecystectomy Past Social History Social History Comment Denies current smoking, was a former smoker and quit 15 years ago, denies alcohol use but smokes marijuana. Smoking: Cigarettes Alcohol Use: Occasionally Drug Use: Marijuana Lives with: Family Lives In: Home Occupation: unemployed ROS All Other Systems: Reviewed and Negative ROS Reviewed and follow negative except for the pertinent positives in HPI Gastrointestinal: Reports: abdominal pain Exam Vitals: Vital Signs Date Time Temp Pulse Resp B/P (MAP) Pulse Ox O2 Delivery O2 Flow Rate FiO2 10/13/24 21:55 98.8 75 16 126/77 92 0 General: General: The patient is well developed, well nourished, nontoxic appearing and is in no acute distress. Skin: Mulino, warm and dry with no rashes. HEENT: Head was normocephalic and atraumatic. Eyes - pupils equal, round, reactive to light and accommodation. Extraocular movements were intact. Conjunctivae were nonicteric. Ears - bilateral tympanic membranes were normal. The mouth and oropharynx were clear with moist mucous membranes. There were no pharyngeal exudates or erythema. Neck: Supple and nontender. There was no jugular venous distention, lymphadenopathy, thyromegaly or masses. Chest: Bilateral wheezing on auscultation, without rales or rhonchi. No accessory muscle use. No dullness to percussion. Heart: Rate regular and rhythmic. S1, S2. No murmurs. Palpation of the chest wall was normal. No rubs or thrills. Abdomen: Festus covered with bandage, has purulent copious greenish foul- smelling discharge from the surgical site of wound one. Minimal discharge from wound two which is covered with bandages as well. Soft, nontender and nondistended. Positive bowel sounds. No guarding or rebound. No hepatosplenomegaly or palpable masses. Extremities: No cyanosis, clubbing or edema. The patient moves all extremities. Pulses were equal and symmetric. Neurologic: Cranial nerves II-XII were intact. Sensation was intact to light touch throughout. Motor strength was 5/5 in all four extremities. Deep tendon reflexes were intact in both upper and lower extremities. Psychologic: The patient was oriented to person, place and time. The patient demonstrated appropriate judgement and insight. Diagnostic Data Last Recorded Lab Results: 10/13/24220810/13/242208 Diagnostic Data: Laboratory Tests Test 10/13/24 22:09 Prothrombin Time 11.0 SECONDS (9.0-12.0) INR International Normalized Ratio 1.1 INR Activated Partial Thromboplast Time 25 SECONDS (22-32) Coagulation Comments Advance Care Planning Advanced Care plannin - 30 Minutes (I spent a total of 17 minutes on reviewing various resuscitative measures/ ACP with the patient at the time of admission. The patient has decided on a full code status) Additional Plan Postoperative wound dehiscence Acute abdominal abscess S/p incisional hernia repair and robotic lysis of adhesions on 09/17/2024 [place] [address], reactive thrombocytosis with platelet count of 930 K, CRP elevated 4.96, procalcitonin to the pain three Dr. Westbrook is aware about the patient. NPO after midnight for possible revision surgery in the a.m. CT of abdomen at [facility] shows postsurgical changes related to recent ventral hernia repair, multiple communicating rim enhancing fluid and gas containing collections in the anterior the abdominal wall and throughout the abdomen and pelvis with large discrete pockets. Started on broad-spectrum antibiotic meropenem b.i.d. given recent hospitalization. Wound care consulted Electrolyte abnormalities: Severe hypokalemia Mild hyponatremia Mild hypochloremia Metabolic alkalosis Mild hypocalcemia Potassium replacement protocol in place, IV fluids NS at the rate of 100 mL/hour. Bicarbonate level is 32.6, Follow up with ABG. Calcium level is 8.1. Albumin 1.6. Corrected calcium is within normal limits Normocytic normochromic anemia Likely secondary to postoperative blood loss Hemoglobin 11.4. Follow up with iron studies, FOBT. Severe protein calorie malnutrition Nutrition consulted. Ensure t.i.d. Code Status: Full code DVT Prophylaxis: Heparin Analgesia/Sedation: Con[place], morphine p.r.n. Lines/Tubes: PIV Gi Prophylaxis: None Nutrition: NPO after midnight PT: Yes Prognosis: Guarded Disposition: Admit to surgical floor. Pending surgical recommendation Ivy Dubois MD Internal Medicine Resident PGY-1 We saw and evaluated Mr Juve Carvajal with the help of the video system I have discussed the case with the resident and I agree with assessment and plan as documented Date of Service: Oct 13, 2024 Billing Provider: KATINA PORTILLO MD, DEEPIKA BANDI, RES Oct 13, 2024 23:44 KATINA PORTILLO MD Oct 14, 2024 05:01
[2024-10-13 23:57] LABS: PRO BRAIN NATRIURETIC PEPTIDE 382 PG/ML (0-125)
[2024-10-13] MEDS: normal saline 1000ml 1,000 ML IV SCH (23:58)
[2024-10-14] MEDS ORDERED: LISI40TA13 PO (00:11)
[2024-10-14] MEDS ORDERED: FLUO20CA39 PO (00:11)
[2024-10-14] MEDS: potassium Cl 20 mEq SR tablet PO PRN ×2 (01:45→11:49)
[2024-10-14 02:10] VITALS: BP 137/79; PULSE 68; RESP 16; TEMP 98; O2SAT 96
[2024-10-14 04:34] LABS: ABG BASE EXCESS 6.5 mmol/L (-2.0-3.0); ABG HCO3 29.2 mmol/L (21.0-28.0); ABG OXYGEN SATURATION 95.7 % (94.0-98.0); ABG PCO2 (T) 34.9 mmHg (35.0-48.0); ABG PH (T) 7.540 (7.350-7.450); ABG PO2 (T) 75.9 mmHg (83.0-108.0); ALLEN'S TEST Modified; FCOHb 2.0 % (0.5-1.5); FHHb 4.2 % (0.0-5.0); FMetHb 0.3 % (0.0-1.5); FO2Hb 93.5 % (94.0-98.0); PATIENT TEMPERATURE 37.0; TOTAL HEMOGLOBIN 11.7 G/dl (13.5-17.5)
[2024-10-14 06:13] LABS: MEAN PLATELET VOLUME 6.9 FL (7.4-10.4); RED CELL DISTRIBUTION WIDTH 14.2 % (11.5-14.5)
[2024-10-14 06:14] LABS: % IRON SATURATION 27 % (11-46)
[2024-10-14 06:18] LABS: CREATININE 0.66 MG/DL (0.60-1.10); TOTAL CARBON DIOXIDE 31.7 MMOL/L (24-32); eCRCL 135 ML/MIN; eGFR > 90 ML/MIN
[2024-10-14 06:35] LABS: CHOL/HDL RATIO 3.8 (0.00-4.99); LDL CHOLESTEROL 60 MG/DL (50-100)
[2024-10-14] MEDS: docusate sod 100mg capsule PO SCH (07:34)
[2024-10-14] MEDS: heparin, porcine 5000 units/ml vial SQ SCH (07:34)
[2024-10-14] MEDS: HYDROcodone/acetaminophen 5mg/325mg tablet PO PRN (07:40)
[2024-10-14 08:00] VITALS: RESP 16; O2SAT 97
[2024-10-14] MEDS ORDERED: lactose-reduced food (Ensure Enlive) - 237ml bottle PO SCH (08:00)
[2024-10-14] MEDS: K and/or MAG REPLACEMENT MC SCH (08:00)
[2024-10-14] MEDS: MEROPENEM 500MG/50ML-NS IVPB 50 ML IV SCH (08:51)
--- NOTE | 2024-10-14 13:10 | PROGRESS NOTE ---
Progress Note ID Providers to CC ~ Progress Note Progress Note: pt seen-needs ct with iv and oral contrast ANGELITO DURBIN MD Oct 14, 2024 13:10
[2024-10-14] MEDS: HYDROcodone/acetaminophen 10/325mg tab PO PRN (15:52)
[2024-10-14 18:00] VITALS: BP 124/75; PULSE 76; RESP 18; TEMP 97; O2SAT 97
[2024-10-14] MEDS: lactose-reduced food (Ensure Enlive) - 237ml bottle PO SCH (19:20)
[2024-10-14 20:00] VITALS: RESP 18; O2SAT 97
[2024-10-14] MEDS ORDERED: ondansetron 4mg rapidly disintigrating tab PO PRN (20:45)
--- NOTE | 2024-10-14 20:52 | PROGRESS NOTE ---
Daily Progress Note Providers to CC ~ Antibiotic Timeout Antibiotic Ordered?: Yes Subjective The patient has draining from the abdominal wound- has a ordered a repeat CT scan with IV and oral contrast- the patient has no other acute complaints Objective Vital Signs Date Time Temp Pulse Resp B/P (MAP) Pulse Ox O2 Delivery O2 Flow Rate FiO2 10/14/24 16:52 16 10/14/24 08:00 97 Room Air 10/14/24 02:10 98.0 68 137/79 (98) 10/14/24 01:21 0 Result Diagram: 10/14/24 0513 10/14/24512 Gen. No acute distress alert and oriented 4 Lungs clear to ascultation bilaterally, no wheezes rales or rhonchi appreciated Heart normal sinus rhythm no murmurs rubs or clicks noted Abdomen soft nontender - line dressing is in place that has semi saturated with yellowish discharge- bowel sounds are normoactive Lower extremities no clubbing cyanosis, nor edema appreciated bilaterally Coagulation Studies Laboratory Tests Test 10/13/24 22:09 Prothrombin Time 11.0 SECONDS (9.0-12.0) INR International Normalized Ratio 1.1 INR Activated Partial Thromboplast Time 25 SECONDS (22-32) Coagulation Comments Problem\Assessment\Plan Postoperative wound dehiscence/ abdominal abscess Acute abdominal abscess S/p incisional hernia repair and robotic lysis of adhesions on 09/17/2024 On IV meropenem Evaluated by Dr. Westbrook was ordered a CT scan with IV and oral contrast. Hypertension Currently normotensive Hold lisinopril and hydrochlorothiazide for possible surgery Depression/anxiety Continue fluoxetine Continue BuSpar Severe protein calorie malnutrition Nutrition consulted. Ensure t.i.d. Date of Service: Oct 14, 2024 Billing Provider: ROXANNE ULRICH DO Common Visit Codes: [id number] INP/OBS CARE(HIGH) ROXANNE ULRICH DO Oct 14, 2024 20:51
[2024-10-14] MEDS: busPIRone 15mg tablet PO SCH (21:28)
[2024-10-14] MEDS: diatr meglu/diatrizoate 30ml oral sol.-(3 dose) bottle PO SCH (21:29)
[2024-10-14 22:00] VITALS: BP 119/80; PULSE 68; RESP 16; TEMP 97.8; O2SAT 98
[2024-10-15 05:01] LABS: MEAN PLATELET VOLUME 6.6 FL (7.4-10.4); RED CELL DISTRIBUTION WIDTH 14.8 % (11.5-14.5)
[2024-10-15 05:34] LABS: CREATININE 0.66 MG/DL (0.60-1.10); TOTAL CARBON DIOXIDE 27.7 MMOL/L (24-32); eCRCL 135 ML/MIN; eGFR > 90 ML/MIN
[2024-10-15 06:00] VITALS: BP 128/82; PULSE 67; RESP 16; TEMP 97.9; O2SAT 98
[2024-10-15] MEDS: pantoprazole 40mg Tablet.DR PO SCH (07:46)
[2024-10-15 08:00] VITALS: RESP 16; O2SAT 98
[2024-10-15 08:12] LABS: LARGE PLATELETS FEW; PLATELET ESTIMATE INCREASED
[2024-10-15 08:23] LABS: OCCULT BLOOD STOOL NEGATIVE (Neg)
[2024-10-15] MEDS ORDERED: iohexol 300mg/ml 100ml inj. ONE (08:53)
[2024-10-15 10:00] VITALS: BP 115/70; PULSE 69; RESP 16; TEMP 97.6; O2SAT 98
[2024-10-15] MEDS ORDERED: MEROPENEM 500MG/50ML-NS IVPB 50 ML IV SCH (12:24)
--- NOTE | 2024-10-15 14:08 | RADIOLOGY REPORT ---
Exam: CT CT ABDOMEN PELVIS W/ IV ORAL CONTRAST History: abscess Comparison Study: CT CT ABDOMEN PELVIS on DOS: 08/15/24, CT CT ABDOMEN PELVIS W/ ORAL CONTRAST on DOS: 05/27/24 TECHNIQUE: Multidetector CT of the abdomen and pelvis with IV contrast. Axial, coronal and sagittal m ultiplanar reformats were obtained from the axial data set by the technologist. Radiation Dose Information: CT Dose: CTDI volume is 11.52 mGy. Dose-length product is 651.83 mGy*cm FINDINGS: Trace right-sided pleural effusion with bibasilar atelectasis. Redemonstration of Postsurgical changes of ventral abdomen. Midline ventral abdominal hernia repair is noted. Unchanged supraumbilical subcutaneous fat and left Upper abdominal subcutaneous fat focus o f air adjacent to areas with Postsurgical changes with a supraumbilical subcutaneous focus of air con nected to the intraperitoneal free air. Mild intraperitoneal free air which is most likely associated with the surgery. Trace ascites/ mesenteric edema which may be associated with the surgery. Small pocket of irregularly shaped fluid collection with foci of air over the left upper abdomen measuring up to 2.8 x 3.8 x 2.3 cm in maximum diameter. Status post cholecystectomy. Mild hepatomegaly. Otherwise, liver, spleen, pancreas and adrenal gland s are unremarkable. Kidneys, ureters and urinary bladder unremarkable. Penile pump is noted in place with the reservoir a butting the left side of the urinary bladder. Prostate measures 3.1 x 3.8 by 3.7 cm. Mild gastric wall thickening. Mild wall thickening of the distal ileum. Otherwise, The small bowel l oops unremarkable. Appendix is unremarkable. Contrast is noted within the stomach, small and large rex wel . Mild wall thickening of the ascending colon, transverse colon, descending colon and sigmoid. D escending colon and sigmoid diverticulosis without diverticulitis. Large amount of fecal material wit hin the rectum No evidence of aortic aneurysm or dissection. No significant lymphadenopathy. Jsoc-fw-[id number] body wall edema. Subcentimeter bilateral inguinal lymph nodes which are most likely reactive. No destructive osseous lesions noted. IMPRESSION: Postsurgical changes of the ventral abdomen with trace ascites and mesenteric edema. Small pocket of irregularly shaped fluid collection with foci of air over the left upper abdomen don uring up to 2.8 x 3.8 x 2.3 cm in maximum diameter. Pneumoperitoneum which is most likely associated with the recent surgery. Wall thickening of the ascending colon, descending colon, sigmoid which may be from the adjacent asci sarika with colitis not excluded. Descending colon and Sigmoid diverticulosis without diverticulitis. Mild gastric wall thickening with mild wall thickening of the distal ileum. Correlate for mild gastr oenteritis.
[2024-10-15] MEDS: MEROPENEM 1GM/NACL 50ML IVPB 50 ML IV SCH (15:48)
[2024-10-15 18:00] VITALS: BP 119/72; PULSE 74; RESP 17; TEMP 97.7; O2SAT 96
[2024-10-15 22:00] VITALS: BP 106/61; PULSE 65; RESP 16; TEMP 97.7; O2SAT 96
--- NOTE | 2024-10-15 22:16 | PROGRESS NOTE ---
Daily Progress Note Providers to CC ~ Antibiotic Timeout Antibiotic Ordered?: Yes Subjective The upper abdominal abscess is decreased in size on CT scan- Dr. Westbrook informed me the patient can eat that is he is not taking the patient is surgery at this juncture Objective Vital Signs Date Time Temp Pulse Resp B/P (MAP) Pulse Ox O2 Delivery O2 Flow Rate FiO2 10/15/24 21:15 16 10/15/24 18:00 97.7 74 119/72 (88) 96 Room Air 10/15/24 08:00 0.0 Result Diagram: 10/15/2443710/15/24437 Gen. No acute distress alert and oriented 4 Lungs clear to ascultation bilaterally, no wheezes rales or rhonchi appreciated Heart normal sinus rhythm no murmurs rubs or clicks noted Abdomen soft nontender - line dressing is in place that has semi saturated with yellowish discharge- bowel sounds are normoactive Lower extremities no clubbing cyanosis, nor edema appreciated bilaterally Coagulation Studies Laboratory Tests Test 10/13/24 22:09 Prothrombin Time 11.0 SECONDS (9.0-12.0) INR International Normalized Ratio 1.1 INR Activated Partial Thromboplast Time 25 SECONDS (22-32) Coagulation Comments Problem\Assessment\Plan Postoperative wound dehiscence/ abdominal abscess Acute abdominal abscess S/p incisional hernia repair and robotic lysis of adhesions on 09/17/2024 On IV meropenem Evaluated by Dr. Westbrook was ordered a CT scan with IV and oral contrast. 10/15 day abdominal abscess is smaller in size in the left upper abdomen currently in his 2.8 x 3.8 x 2.3 cm- Dr. Westbrook not taking the patient to surgery at this juncture Hypertension Currently normotensive Hold lisinopril and hydrochlorothiazide for possible surgery 10/15 blood pressure remains controlled off of blood pressure medications continue hold hydrochlorothiazide and lisinopril for now Depression/anxiety Continue fluoxetine Continue BuSpar Severe protein calorie malnutrition Nutrition consulted. Ensure t.i.d. Date of Service: Oct 15, 2024 Billing Provider: ROXANEN ULRICH DO Common Visit Codes: [id number] INP/OBS CARE(HIGH) ROXANNE ULRICH DO Oct 15, 2024 22:16
[2024-10-16] VITALS (19 sets, daily range): BP systolic 112–143; BP diastolic 58–99; PULSE 57–97; RESP 10–18; TEMP 97.5–100; O2SAT 91–99
[2024-10-16 05:12] LABS: CREATININE 0.62 MG/DL (0.60-1.10); TOTAL CARBON DIOXIDE 28.2 MMOL/L (24-32); eCRCL 144 ML/MIN; eGFR > 90 ML/MIN
[2024-10-16 05:25] LABS: RED CELL DISTRIBUTION WIDTH 14.7 % (11.5-14.5)
[2024-10-16 05:26] LABS: MEAN PLATELET VOLUME 6.4 FL (7.4-10.4)
[2024-10-16] MEDS ORDERED: hydrALAZINE 20mg/ml inj. IV PRN (12:25)
[2024-10-16] MEDS ORDERED: labetalol 20mg/4ml (5mg/ml) syringe IV PRN (12:25)
[2024-10-16] MEDS ORDERED: ondansetron/PF 4mg/2ml inj IV PRN (12:25)
[2024-10-16] MEDS ORDERED: HYDROmorphone/PF 0.2 MG/ML SYRINGE IV PRN (12:25)
[2024-10-16] MEDS ORDERED: midazolam 1 mg/ML 2ml injection ONE (12:43)
[2024-10-16] MEDS ORDERED: ceFOXitin 1000 MG inj ONE ×2 (13:41)
[2024-10-16] MEDS ORDERED: fentaNYL /PF 50mcg/ml 5ml ampule ONE (13:41)
[2024-10-16] MEDS ORDERED: propofol inj 20 ML IV ONE (13:42)
[2024-10-16] MEDS ORDERED: LIDOcaine 2% (20mg/ml) 5ml vial ONE (13:42)
[2024-10-16] MEDS ORDERED: LIDOcaine 1%/PF 5ML 10 MG/ML VIAL ONE (13:42)
[2024-10-16] MEDS ORDERED: rocuronium 10mg/ml inj IV ONE ×2 (13:42)
[2024-10-16] MEDS ORDERED: dexamethasone sod phosphate 4mg/ml inj. ONE (13:45)
[2024-10-16] MEDS ORDERED: ondansetron/PF 4mg/2ml inj ONE (13:46)
[2024-10-16] MEDS ORDERED: BUPIVAcaine/PF 2.5mg/ml (0.25%) 10ml vial ONE (13:50)
[2024-10-16] MEDS ORDERED: BUPIVACAINE liposomal/PF 13.3 MG/ML 10mL vial IM ONE (13:51)
[2024-10-16] MEDS ORDERED: glycopyrrolate 0.2mg/ml inj ONE (14:19)
--- NOTE | 2024-10-16 14:30 | OPERATIVE REPORT ---
Operative Report Providers to CC CC: ANGELITO DURBIN MD ~ Date of Procedure: Oct 16, 2024 Pre-Operative Diagnosis: infected mesh s/p hernia repair Post-Operative Diagnosis SAME as PRE-Op Procedure Performed ex lap/excision infected mesh Surgeon: maria eugenia Ash Worker none Anesthesiologist: Audie Zurita Type of Anesthesia: General Findings: infected mesh Estimated Blood Loss: min Specimen Removed: mesh/culture ANGELITO DURBIN MD Oct 16, 2024 14:30
[2024-10-16] MEDS: acetaminophen 1,000mg/100ml IV 100 ML IV PRN (14:33)
[2024-10-16] MEDS: morphine 4 MG/ML inj SYRINge IV PRN (14:33)
[2024-10-16] MEDS: HYDROmorphone/PF 0.2 MG/ML SYRINGE IV PRN (14:40)
--- NOTE | 2024-10-16 14:56 | RADIOLOGY REPORT ---
EXAM: DI CHEST,SINGLE VIEW Indication: POST OP Technique: Single frontal view of the chest was obtained Comparison: DI CHEST,SINGLE VIEW on DOS: 05/24/24 FINDINGS: Lines and Tubes: Right internal jugular central venous catheter tip projects over superior vena cava. Lungs: Pulmonary edema. Pleura: Trace bilateral pleural effusions. Bibasilar opacities. No pneumothorax. Cardiomediastinal contours: Cardiomegaly. Bones: No acute osseous abnormality. IMPRESSION: Cardiomegaly with pulmonary edema and trace bilateral pleural effusions and bibasilar opacities.
--- NOTE | 2024-10-16 16:12 | OPERATIVE REPORT ---
DATE OF SURGERY: 10/16/2024 DICTATING PHYSICIAN: Heladio Westbrook MD PREOPERATIVE DIAGNOSIS: Infected mesh status post incisional hernia repair. POSTOPERATIVE DIAGNOSIS: Infected mesh status post incisional hernia repair. PROCEDURES: * Exploratory laparotomy. * Excision of infected mesh. SURGEON: Heladio Westbrook MD SUPERVISOR ENGINES ROAD: None. ANESTHESIA: General/Dr. Zurita. DRAINS: Darvin x 1. INDICATIONS FOR OPERATION: A 48-year-old male status post open repair of incisional hernia with mesh placement, developed purulent drainage, taken to Surgery for mesh removal. INTRAOPERATIVE FINDINGS: Infected mesh. DESCRIPTION OF PROCEDURE: The patient was placed supine on the operating table. After induction of general anesthesia and placement of endotracheal tube, the abdomen was prepped and draped. Left upper quadrant incision was opened. The patient had an area of drainage in the midline incision. An elliptical incision on the sinus tract was then performed and carried down to the fascia. Through a small opening in the peritoneal cavity, mesh was found to be infected. Incision was then extended superiorly. The mesh was subsequently mobilized and removed. Abdomen was then copiously irrigated with large amount of antibiotic-containing solution. Mesh from previous repairs was resected as much as possible. After hemostasis was found to be adequate, the wound was closed with sutures of 3-0 nylon the patient will need repair of a hernia in the future. Heladio Westbrook MD TID: [id number] RECEIPT: [id number] KB/YOK
--- NOTE | 2024-10-16 17:32 | CONSULTATION ---
DATE OF CONSULTATION: 10/15/2024 DICTATING PHYSICIAN: Heladio Westbrook MD REASON FOR CONSULTATION: Evaluation of abdominal drainage. HISTORY OF PRESENT ILLNESS: The patient is a 48-year-old male who had an incisional hernia fixed in the middle of September with mesh, which was done robotically. The patient apparently developed some purulent drainage from the midline incision. Surgical evaluation is now requested. On further questioning, he states he developed some swelling in the midline and subsequent large amount of purulent drainage. No complaints of fever or chills. PAST MEDICAL HISTORY: Significant for hypertension, anxiety, depression, GERD. PAST SURGICAL HISTORY: Robotic repair of incisional hernia, robotic lysis of adhesions, previous cholecystectomy, and previous lower abdominal hernia repair. HOME MEDICATIONS: Prilosec, lurasidone, Neurontin, hydrochlorothiazide, BuSpar, escitalopram, Zofran. ALLERGIES: TRAZODONE, DICYCLOMINE. SOCIAL HISTORY: No history of tobacco use. REVIEW OF SYSTEMS: See H and P. PHYSICAL EXAMINATION: GENERAL: A well-nourished male in no distress. VITAL SIGNS: Unremarkable. HEART: Regular rate and rhythm. LUNGS: Clear to auscultation. ABDOMEN: Shows purulent drainage from the midline as well as some erythema involving the left upper quadrant incisions. EXTREMITIES: Unremarkable. NEUROLOGIC: Nonfocal. LABORATORY DATA: WBC of 9, hematocrit of 34, platelet count is 903. BUN and creatinine of 13 and 0.6. IMAGING STUDIES: CAT scan of the abdomen reveals postsurgical changes. IMPRESSION: * Status post incisional hernia repair ? infected mesh. * Hypertension. * Anxiety, depression. * History of GERD. RECOMMENDATIONS: * IV antibiotics. * Follow up cultures. * Probable mesh excision. Heladio Westbrook MD TID: [id number] RECEIPT: [id number] KB/YOK
--- NOTE | 2024-10-16 19:17 | PROGRESS NOTE ---
Daily Progress Note Providers to CC No new complaint today, resting comfortably in the bed, awaiting to go to OR for mesh removal from abdominal wall ~ Central Line/PICC still needed: No Nolasco-Non Protocol Nolasco Indications Met/Not Met: F/C Indications Not Met Antibiotic Timeout Antibiotic Ordered?: Yes MRSA Education MRSA Education Provided to pt: Yes Subjective As above Objective Vital Signs Date Time Temp Pulse Resp B/P (MAP) Pulse Ox O2 Delivery O2 Flow Rate FiO2 10/16/24 17:05 97.8 58 16 127/79 (95) 98 Room Air 10/16/24 15:20 0.0 Vital signs, stable ,afebrile. Pulse Oximetry reflects adequate oxygenation. B General: well developed, well nourished. Awake , alert, and oriented x4, resting comfortably in the bed, in no acute distress . Skin: Warm, dry, no pallor, no rash or petechiae. HEENT: Atraumatic, normocephalic, EOMI, anicteric sclera B; pink conjunctiva; PERRLA, normal oropharynx, moist oral and nasal mucosa. Tympanic membrane , nose , throat clear. Neck: Trachea midline. Supple, full range of motion, no JVD, bruit , hepatojugular reflex , lymphadenopathy or masses, or other lesions Cardiac: Regular rhythm, regular rate no murmurs, rubs, or gallops. Normal S1 and S2, no S3 noticed. PMI is normal. Respiratory: Equal breath sounds bilaterally, no tachypnea; lungs clear to auscultation bilaterally, no wheezing ,rub or rales, or crackles. Chest wall is symmetric and without deformity. No signs of trauma. Chest wall is nontender. No signs of respiratory distress. Resonance is normal upon percussion bilaterally. Gastrointestinal: Abdomen symmetric, non-distended, soft, mild tender periumbilically, dressing clean dry intact,, normal bowel sounds x4 quadrant, normoactive, no hepatosplenomegaly , no masses , no bruit, no flank pain bilaterally. No voluntary guarding, rebound, or rigidity. No tenderness to percussion. No pulsatile masses. Equal femoral pulses. No Ludwig's sign or McBurney point tenderness. Back; no CVA tenderness bilaterally, no deformities. Neck and back are without deformity as well. No tenderness noted on palpation of the spinous processes. Spinous processes are midline. Cervical, thoracic, and lumbar paraspinal muscles are not tender and are without spasm. : normal external genitalia, without lesions, swelling, masses or tenderness. Musculoskeletal: Extremities, normal range of motion, non-tender, muscle strength 5/5 x 4. Negative Homans signs bilaterally on lower extremity. Distal pulses full symmetrical, no clubbing, cyanosis , edema. Neurological: Speech is clear, alert, and oriented x 4. No motor or sensory deficit, deep tendon reflexes normal, cerebellar intact. Cranial nerves II-XII intact. Psych: Alert and or appropriate, normal affect. Vascular: Good distal pulses, which are equal x4; capillary refill less than 2 seconds. Lymphatic, no lymphadenopathy. Result Diagram: 10/16/2443110/16/24431 Coagulation Studies Laboratory Tests Test 10/13/24 22:09 Prothrombin Time 11.0 SECONDS (9.0-12.0) INR International Normalized Ratio 1.1 INR Activated Partial Thromboplast Time 25 SECONDS (22-32) Coagulation Comments Problem\Assessment\Plan Assessment/plan Postoperative wound dehiscence/ abdominal abscess Acute abdominal abscess S/p incisional hernia repair and robotic lysis of adhesions on 09/17/2024 On IV meropenem Awaiting to go to OR today Hypertension Currently normotensive Hold lisinopril and hydrochlorothiazide for possible surgery 10/15 blood pressure remains controlled off of blood pressure medications continue hold hydrochlorothiazide and lisinopril for now Depression/anxiety Continue fluoxetine Continue BuSpar Severe protein calorie malnutrition Nutrition consulted. Ensure t.i.d. DVT gastropathy prophylaxis addressed Sepsis Screening Reassessment Date: Oct 16, 2024 Date of Service: Oct 16, 2024 Billing Provider: KAYE RUIZ MD Common Visit Codes: [id number] INP/OBS CARE(HIGH) KAYE RUIZ MD Oct 16, 2024 19:17
[2024-10-17 02:00] VITALS: BP 115/77; PULSE 64; RESP 16; TEMP 97.5; O2SAT 96
[2024-10-17 04:59] LABS: MEAN PLATELET VOLUME 6.3 FL (7.4-10.4)
[2024-10-17 05:02] LABS: RED CELL DISTRIBUTION WIDTH 14.8 % (11.5-14.5)
[2024-10-17 05:14] LABS: CREATININE 0.73 MG/DL (0.60-1.10); TOTAL CARBON DIOXIDE 29.7 MMOL/L (24-32); eCRCL 122 ML/MIN; eGFR > 90 ML/MIN
[2024-10-17 06:00] VITALS: BP 119/72; PULSE 63; RESP 17; TEMP 98.6; O2SAT 98
[2024-10-17] MEDS: ringers solution, lacted 1,000 ML IV SCH (08:29)
[2024-10-17 10:00] VITALS: BP 113/67; PULSE 76; RESP 14; TEMP 98; O2SAT 96
[2024-10-17 11:45] VITALS: BP 118/74; PULSE 78; RESP 18; TEMP 98; O2SAT 96
--- NOTE | 2024-10-17 17:04 | PROGRESS NOTE ---
Daily Progress Note Providers to CC ~ no new complaint today, resting comfortably in the bed Central Line/PICC still needed: No Nolasco-Non Protocol Nolasco Indications Met/Not Met: F/C Indications Not Met Antibiotic Timeout Antibiotic Ordered?: Yes MRSA Education MRSA Education Provided to pt: Yes Subjective As above Objective Vital Signs Date Time Temp Pulse Resp B/P (MAP) Pulse Ox O2 Delivery O2 Flow Rate FiO2 10/17/24 12:05 16 10/17/24 12:00 Room Air 10/17/24 11:45 98.0 78 118/74 (89) 96 10/16/24 15:20 0.0 Vital signs, stable ,afebrile. Pulse Oximetry reflects adequate oxygenation. General: well developed, well nourished. Awake , alert, and oriented x4, resting comfortably in the bed, in no acute distress . Skin: Warm, dry, no pallor, no rash or petechiae. HEENT: Atraumatic, normocephalic, EOMI, anicteric sclera B; pink conjunctiva; PERRLA, normal oropharynx, moist oral and nasal mucosa. Tympanic membrane , nose , throat clear. Neck: Trachea midline. Supple, full range of motion, no JVD, bruit , hepatojugular reflex , lymphadenopathy or masses, or other lesions Cardiac: Regular rhythm, regular rate no murmurs, rubs, or gallops. Normal S1 and S2, no S3 noticed. PMI is normal. Respiratory: Equal breath sounds bilaterally, no tachypnea; lungs clear to auscultation bilaterally, no wheezing ,rub or rales, or crackles. Chest wall is symmetric and without deformity. No signs of trauma. Chest wall is nontender. No signs of respiratory distress. Resonance is normal upon percussion bilaterally. Gastrointestinal: Abdomen symmetric, non-distended, soft, mild tender to palpation periumbilically, dressing clean dry intact, hypoactive bowel sounds, no hepatosplenomegaly , no masses , no bruit, no flank pain bilaterally. No voluntary guarding, rebound, or rigidity. No tenderness to percussion. No pulsatile masses. Equal femoral pulses. No Ludwig's sign or McBurney point tenderness. Back; no CVA tenderness bilaterally, no deformities. Neck and back are without deformity as well. No tenderness noted on palpation of the spinous processes. Spinous processes are midline. Cervical, thoracic, and lumbar paraspinal muscles are not tender and are without spasm. : normal external genitalia, without lesions, swelling, masses or tenderness. Musculoskeletal: Extremities, normal range of motion, non-tender, muscle strength 5/5 x 4. Negative Homans signs bilaterally on lower extremity. Distal pulses full symmetrical, no clubbing, cyanosis , edema. Neurological: Speech is clear, alert, and oriented x 4. No motor or sensory deficit, deep tendon reflexes normal, cerebellar intact. Cranial nerves II-XII intact. Psych: Alert and or appropriate, normal affect. Vascular: Good distal pulses, which are equal x4; capillary refill less than 2 seconds. Lymphatic, no lymphadenopathy. Result Diagram: 10/17/249 10/17/24428 Coagulation Studies Laboratory Tests Test 10/13/24 22:09 Prothrombin Time 11.0 SECONDS (9.0-12.0) INR International Normalized Ratio 1.1 INR Activated Partial Thromboplast Time 25 SECONDS (22-32) Coagulation Comments Problem\Assessment\Plan Assessment/plan Postoperative wound dehiscence/ abdominal abscess general surgery Dr. Westbrook on the case managing surgical problems Acute abdominal abscess S/p incisional hernia repair and robotic lysis of adhesions on 09/17/2024 On IV antibiotics Status post surgery removal of infected mesh, postoperative day one, good recovery Hypertension Currently normotensive Hold lisinopril and hydrochlorothiazide Depression/anxiety Continue fluoxetine Continue BuSpar Severe protein calorie malnutrition Nutrition consulted. Ensure t.i.d. DVT gastropathy prophylaxis addressed Sepsis Screening Reassessment Date: Oct 17, 2024 Date of Service: Oct 17, 2024 Billing Provider: KAYE RUIZ MD Common Visit Codes: [id number] INP/OBS CARE(HIGH) KAYE RUIZ MD Oct 17, 2024 17:04
[2024-10-17] MEDS: CEFEPIME 2gm in D5W 50mL 50 ML IV SCH (17:33)
[2024-10-17] MEDS: HYDROmorphone inj. 0.5 MG/0.5 ML DISP.SYRIN IV PRN (17:34)
[2024-10-17 18:00] VITALS: BP 116/66; PULSE 72; RESP 16; TEMP 98.2; O2SAT 97
--- NOTE | 2024-10-17 21:57 | PROGRESS NOTE ---
Progress Note ID Providers to CC ~ Progress Note Progress Note: complains of pain/vss/abd-drainage noted/labs noted a/p 1. s/p excision infected mesh/cont antibx ANGELITO DURBIN MD Oct 17, 2024 21:57
[2024-10-17 22:00] VITALS: BP 114/68; PULSE 73; RESP 18; TEMP 98.3; O2SAT 95
[2024-10-18 04:51] LABS: MEAN PLATELET VOLUME 6.2 FL (7.4-10.4); RED CELL DISTRIBUTION WIDTH 14.8 % (11.5-14.5)
[2024-10-18 05:20] LABS: CREATININE 0.69 MG/DL (0.60-1.10); TOTAL CARBON DIOXIDE 29.4 MMOL/L (24-32); eCRCL 129 ML/MIN; eGFR > 90 ML/MIN
[2024-10-18 06:14] VITALS: BP 123/77; PULSE 73; RESP 16; TEMP 98.5; O2SAT 97
[2024-10-18 11:54] VITALS: BP 110/64; PULSE 81; RESP 16; TEMP 97.9; O2SAT 97
--- NOTE | 2024-10-18 16:51 | PROGRESS NOTE ---
Progress Note Dictate Providers to CC CC: MELIDA RIDDLE MD ~ Progress Note: Subsequent surgical care on a 48-year-old gentleman who is postoperative day 2 status post laparotomy with explantation of infected mesh Covering for Dr. Heladio Westbrook over the weekend Skin closed but musculature left open Wound draining some purulent fluid from the inferior margin and also draining purulent fluid and BAUTISTA Persistent leukocytosis Tolerating regular diet Continue antibiotics Wound care I will continue to follow Antibiotic Ordered?: Yes Objective Vitals Vital Signs Date Time Temp Pulse Resp B/P (MAP) Pulse Ox O2 Delivery O2 Flow Rate FiO2 10/18/24 16:12 16 10/18/24 11:54 97.9 81 110/64 (79) 97 Room Air 10/18/24 08:40 0.0 Lab Results: 10/18/24 0420 10/18/24 0420 Coagulation Studies Laboratory Tests Test 10/13/24 22:09 Prothrombin Time 11.0 SECONDS (9.0-12.0) INR International Normalized Ratio 1.1 INR Activated Partial Thromboplast Time 25 SECONDS (22-32) Coagulation Comments MELIDA RIDDLE MD Oct 18, 2024 16:51
[2024-10-18 18:00] VITALS: BP 105/64; PULSE 73; RESP 15; TEMP 98.3; O2SAT 96
--- NOTE | 2024-10-18 18:28 | PROGRESS NOTE ---
Daily Progress Note Providers to CC Today, minimal pain, in postoperative area ~ Central Line/PICC still needed: No Nolasco-Non Protocol Nolasco Indications Met/Not Met: F/C Indications Not Met Antibiotic Timeout Antibiotic Ordered?: Yes MRSA Education MRSA Education Provided to pt: Yes Subjective As above Objective Vital Signs Date Time Temp Pulse Resp B/P (MAP) Pulse Ox O2 Delivery O2 Flow Rate FiO2 10/18/24 17:25 16 10/18/24 11:54 97.9 81 110/64 (79) 97 Room Air 10/18/24 08:40 0.0 Vital signs, stable ,afebrile. Pulse Oximetry reflects adequate oxygenation. General: well developed, well nourished. Awake , alert, and oriented x4, resting comfortably in the bed, in no acute distress . Skin: Warm, dry, no pallor, no rash or petechiae. HEENT: Atraumatic, normocephalic, EOMI, anicteric sclera B; pink conjunctiva; PERRLA, normal oropharynx, moist oral and nasal mucosa. Tympanic membrane , nose , throat clear. Neck: Trachea midline. Supple, full range of motion, no JVD, bruit , hepatojugular reflex , lymphadenopathy or masses, or other lesions Cardiac: Regular rhythm, regular rate no murmurs, rubs, or gallops. Normal S1 and S2, no S3 noticed. PMI is normal. Respiratory: Equal breath sounds bilaterally, no tachypnea; lungs clear to auscultation bilaterally, no wheezing ,rub or rales, or crackles. Chest wall is symmetric and without deformity. No signs of trauma. Chest wall is nontender. No signs of respiratory distress. Resonance is normal upon percussion bilaterally. Gastrointestinal: Abdomen symmetric, non-distended, soft, mild tender to palpation periumbilically, dressing clean dry intact, normal bowel sounds x4 quadrant, normoactive, no hepatosplenomegaly , no masses , no bruit, no flank pain bilaterally. No voluntary guarding, rebound, or rigidity. No tenderness to percussion. No pulsatile masses. Equal femoral pulses. No Ludwig's sign or McBurney point tenderness. Back; no CVA tenderness bilaterally, no deformities. Neck and back are without deformity as well. No tenderness noted on palpation of the spinous processes. Spinous processes are midline. Cervical, thoracic, and lumbar paraspinal muscles are not tender and are without spasm. : normal external genitalia, without lesions, swelling, masses or tenderness. Musculoskeletal: Extremities, normal range of motion, non-tender, muscle strength 5/5 x 4. Negative Homans signs bilaterally on lower extremity. Distal pulses full symmetrical, no clubbing, cyanosis , edema. Neurological: Speech is clear, alert, and oriented x 4. No motor or sensory deficit, deep tendon reflexes normal, cerebellar intact. Cranial nerves II-XII intact. Psych: Alert and or appropriate, normal affect. Vascular: Good distal pulses, which are equal x4; capillary refill less than 2 seconds. Lymphatic, no lymphadenopathy. Result Diagram: 10/18/2441910/18/24419 Coagulation Studies Laboratory Tests Test 10/13/24 22:09 Prothrombin Time 11.0 SECONDS (9.0-12.0) INR International Normalized Ratio 1.1 INR Activated Partial Thromboplast Time 25 SECONDS (22-32) Coagulation Comments Problem\Assessment\Plan Assessment/plan Postoperative wound dehiscence/ abdominal abscess general surgery Dr. Westbrook on the case managing surgical problems Acute abdominal abscess S/p incisional hernia repair and robotic lysis of adhesions on 09/17/2024 On IV antibiotics Status post surgery removal of infected mesh, postoperative day 2, good recovery, had stool today Hypertension Currently normotensive Hold lisinopril and hydrochlorothiazide Depression/anxiety Continue fluoxetine Continue BuSpar Severe protein calorie malnutrition Nutrition consulted. Ensure t.i.d. DVT gastropathy prophylaxis addressed Sepsis Screening Reassessment Date: Oct 18, 2024 Date of Service: Oct 18, 2024 Billing Provider: KAYE RUIZ MD Common Visit Codes: [id number] INP/OBS CARE(HIGH) KAYE RUIZ MD Oct 18, 2024 18:28
[2024-10-18 22:00] VITALS: BP 123/73; PULSE 78; RESP 12; TEMP 98.1; O2SAT 96
[2024-10-19] VITALS (16 sets, daily range): BP systolic 96–152; BP diastolic 58–104; PULSE 75–100; RESP 12–16; TEMP 97.1–98; O2SAT 95–99
[2024-10-19 10:39] LABS: MEAN PLATELET VOLUME 6.5 FL (7.4-10.4); RED CELL DISTRIBUTION WIDTH 15.0 % (11.5-14.5)
[2024-10-19 10:55] LABS: CREATININE 0.61 MG/DL (0.60-1.10); TOTAL CARBON DIOXIDE 29.0 MMOL/L (24-32); eCRCL 146 ML/MIN; eGFR > 90 ML/MIN
--- NOTE | 2024-10-19 11:38 | PROGRESS NOTE ---
Progress Note Dictate Providers to CC CC: MELIDA RIDDLE MD ~ Progress Note: Subsequent surgical care on a 48-year-old gentleman who is postoperative day 3 status post laparotomy with explantation of infected mesh Covering for Dr. Heladio Westbrook over the weekend Patient began draining feculent material this morning from the lower margin of his wound Persistent leukocytosis Erythematous skin changes around the lower margin of the wound Concern for missed enterotomy The risks, benefits, and alternatives to an exploratory laparotomy, possible bowel resection were discussed with the patient. Risks include, but are not limited to, ongoing infection, leakage from the intestine and the need for additional surgical intervention. Patient verbalized understanding. We will proceed to the operating room this afternoon, awaiting 6 hours as the patient ate a regular breakfast this morning. Antibiotic Ordered?: Yes Objective Vitals Vital Signs Date Time Temp Pulse Resp B/P (MAP) Pulse Ox O2 Delivery O2 Flow Rate FiO2 10/19/24 10:45 14 10/19/24 06:46 98.0 78 106/72 (83) 99 Room Air 10/18/24 08:40 0.0 Lab Results: 10/19/24 0955 10/19/24 0955 Coagulation Studies Laboratory Tests Test 10/13/24 22:09 Prothrombin Time 11.0 SECONDS (9.0-12.0) INR International Normalized Ratio 1.1 INR Activated Partial Thromboplast Time 25 SECONDS (22-32) Coagulation Comments MELIDA RIDDLE MD Oct 19, 2024 11:38
--- NOTE | 2024-10-19 12:28 | ELECTROCARDIOGRAPH REPORT ---
[facility] Test Date: 2024-10-19 Test Time: 12:23:43 Pat Name: LUCÍA MANCUSO Department: [facility] 3N Room: [facility] Gender: M Bridge Crew Member: ANAMIKA : 1975 Requested By: MELIDA RIDDLE Order Number: [id number] Reading MD: Dr. SAMARIA Severino Measurements Intervals [place] Rate: 76 P: 41 SC: 119 QRS: 25 QRSD: 94 T: 46 QT: 389 QTc: 438 Interpretive Statements Sinus rhythm Borderline short SC interval Electronically Signed On 10-20-2024 9:22:[address] SAMARIA Severino Please click the below link to view image of tracing.
--- NOTE | 2024-10-19 12:51 | PROGRESS NOTE ---
Daily Progress Note Providers to CC Chief complaint, intestinal content discharged from the abdominal wound postoperative ~ Central Line/PICC still needed: No Nolasco-Non Protocol Nolasco Indications Met/Not Met: F/C Indications Not Met Antibiotic Timeout Antibiotic Ordered?: Yes MRSA Education MRSA Education Provided to pt: Yes Subjective Vital signs, stable ,afebrile. Pulse Oximetry reflects adequate oxygenation. General: well developed, well nourished. Awake , alert, and oriented x4, resting comfortably in the bed, in no acute distress . Skin: Warm, dry, no pallor, no rash or petechiae. HEENT: Atraumatic, normocephalic, EOMI, anicteric sclera B; pink conjunctiva; PERRLA, normal oropharynx, moist oral and nasal mucosa. Tympanic membrane , nose , throat clear. Neck: Trachea midline. Supple, full range of motion, no JVD, bruit , hepatojugular reflex , lymphadenopathy or masses, or other lesions Cardiac: Regular rhythm, regular rate no murmurs, rubs, or gallops. Normal S1 and S2, no S3 noticed. PMI is normal. Respiratory: Equal breath sounds bilaterally, no tachypnea; lungs clear to auscultation bilaterally, no wheezing ,rub or rales, or crackles. Chest wall is symmetric and without deformity. No signs of trauma. Chest wall is nontender. No signs of respiratory distress. Resonance is normal upon percussion bilaterally. Gastrointestinal: Abdomen symmetric, non-distended, soft, dressing clean dry intact with scattered intestinal content, normal bowel sounds x4 quadrant, normoactive, no hepatosplenomegaly , no masses , no bruit, no flank pain bilaterally. No voluntary guarding, rebound, or rigidity. No tenderness to percussion. No pulsatile masses. Equal femoral pulses. No Ludwig's sign or McBurney point tenderness. Back; no CVA tenderness bilaterally, no deformities. Neck and back are without deformity as well. No tenderness noted on palpation of the spinous processes. Spinous processes are midline. Cervical, thoracic, and lumbar paraspinal muscles are not tender and are without spasm. : normal external genitalia, without lesions, swelling, masses or tenderness. Musculoskeletal: Extremities, normal range of motion, non-tender, muscle strength 5/5 x 4. Negative Homans signs bilaterally on lower extremity. Distal pulses full symmetrical, no clubbing, cyanosis , edema. Neurological: Speech is clear, alert, and oriented x 4. No motor or sensory deficit, deep tendon reflexes normal, cerebellar intact. Cranial nerves II-XII intact. Psych: Alert and or appropriate, normal affect. Vascular: Good distal pulses, which are equal x4; capillary refill less than 2 seconds. Lymphatic, no lymphadenopathy. Objective Vital Signs Date Time Temp Pulse Resp B/P (MAP) Pulse Ox O2 Delivery O2 Flow Rate FiO2 10/19/24 12:04 16 10/19/24 06:46 98.0 78 106/72 (83) 99 Room Air 10/18/24 08:40 0.0 Result Diagram: 10/19/2495410/19/24 09 Coagulation Studies Laboratory Tests Test 10/13/24 22:09 Prothrombin Time 11.0 SECONDS (9.0-12.0) INR International Normalized Ratio 1.1 INR Activated Partial Thromboplast Time 25 SECONDS (22-32) Coagulation Comments Problem\Assessment\Plan Assessment/plan Postoperative wound dehiscence/ abdominal abscess general surgery DR. RIDDLE on the case managing surgical problems Acute abdominal abscess ACUTE ENTEROCUTANEOUS FISTULA S/p incisional hernia repair and robotic lysis of adhesions on 09/17/2024 On IV antibiotics Status post surgery removal of infected mesh, postoperative day , awaiting to go to OR today Hypertension Currently normotensive Hold lisinopril and hydrochlorothiazide Depression/anxiety Continue fluoxetine Continue BuSpar Severe protein calorie malnutrition Nutrition consulted. Ensure t.i.d. DVT gastropathy prophylaxis addressed Sepsis Screening Reassessment Date: Oct 19, 2024 Date of Service: Oct 19, 2024 Billing Provider: KAYE RUIZ MD Common Visit Codes: [id number] INP/OBS CARE(HIGH) KAYE RUIZ MD Oct 19, 2024 12:51
[2024-10-19] MEDS ORDERED: morphine 4 MG/ML inj SYRINge IV PRN (14:10)
[2024-10-19] MEDS ORDERED: acetaminophen 1,000mg/100ml IV 100 ML IV PRN (14:10)
[2024-10-19] MEDS ORDERED: hydrALAZINE 20mg/ml inj. IV PRN (14:10)
[2024-10-19] MEDS ORDERED: ondansetron/PF 4mg/2ml inj IV PRN (14:10)
[2024-10-19] MEDS ORDERED: labetalol 20mg/4ml (5mg/ml) syringe IV PRN (14:10)
[2024-10-19] MEDS ORDERED: HYDROmorphone/PF 0.2 MG/ML SYRINGE IV PRN ×2 (14:10)
[2024-10-19] MEDS ORDERED: HYDROmorphone inj. 0.5 MG/0.5 ML DISP.SYRIN IM STA (14:33)
[2024-10-19] MEDS: ringers solution, lacted 1,000 ML IV SCH ×2 (14:42→20:57)
[2024-10-19] MEDS: HYDROmorphone inj. 0.5 MG/0.5 ML DISP.SYRIN IV STA (14:47)
[2024-10-19] MEDS ORDERED: BUPIVAcaine/PF 2.5mg/ml (0.25%) 10ml vial ONE (15:36)
[2024-10-19] MEDS ORDERED: BUPIVAcaine/PF 2.5 mg/ml (0.25%) 30ml vial ONE (15:36)
[2024-10-19] MEDS ORDERED: BUPIVACAINE liposomal/PF 13.3 MG/ML 10mL vial IM ONE (15:37)
[2024-10-19] MEDS ORDERED: midazolam 1 mg/ML 2ml injection ONE (16:03)
[2024-10-19] MEDS ORDERED: fentaNYL /PF 50mcg/ml 5ml ampule ONE (16:24)
[2024-10-19] MEDS ORDERED: propofol inj 20 ML IV ONE (16:30)
[2024-10-19] MEDS ORDERED: rocuronium 10mg/ml inj IV ONE (16:30)
[2024-10-19] MEDS ORDERED: LIDOcaine 2% (20mg/ml) 5ml vial ONE (16:30)
[2024-10-19] MEDS ORDERED: ceFOXitin 1000 MG inj ONE ×2 (16:30)
[2024-10-19] MEDS ORDERED: dexamethasone sod phosphate 4mg/ml inj. ONE (16:40)
[2024-10-19] MEDS ORDERED: ondansetron/PF 4mg/2ml inj ONE (16:40)
[2024-10-19] MEDS ORDERED: fentaNYL/PF 50MCG/1 ML 2ML syringe IV PRN (17:40)
[2024-10-19] MEDS ORDERED: albumin (Human) 5% 250ml 250 ML IV ONE (18:10)
[2024-10-19] MEDS: propofol 1000mg/100ml bottle 100 ML IV SCH (18:48)
[2024-10-19] MEDS: FENTANYL-0.9 % NACL/PF 100 ML IV SCH (18:49)
[2024-10-19 19:23] LABS: ABG BASE EXCESS 2.4 mmol/L (-2.0-3.0); ABG HCO3 27.5 mmol/L (21.0-28.0); ABG OXYGEN SATURATION 99.1 % (94.0-98.0); ABG PCO2 (T) 45.0 mmHg (35.0-48.0); ABG PH (T) 7.405 (7.350-7.450); ABG PO2 (T) 198.8 mmHg (83.0-108.0); ALLEN'S TEST Modified; FCOHb 1.2 % (0.5-1.5); FHHb 0.9 % (0.0-5.0); FIO2 90.0 mmHg/%; FMetHb 0.3 % (0.0-1.5); FO2Hb 97.6 % (94.0-98.0); MODE VENT - SIMV; PATIENT TEMPERATURE 37.2; PEEP 5 cm H2O; RESPIRATORY RATE 12 b/min; TIDAL VOLUME 600 mL; TOTAL HEMOGLOBIN 11.2 G/dl (13.5-17.5)
--- NOTE | 2024-10-19 19:41 | OPERATIVE REPORT ---
Operative Report Providers to CC CC: ANDRE RIDDLE MD ~ Date of Procedure: Oct 19, 2024 Pre-Operative Diagnosis: Enterocutaneous fistula Post-Operative Diagnosis SAME as PRE-Op Procedure Performed Exploratory laparotomy Extensive enterolysis Placement of wound VAC Surgeon: Andre Riddle MD FACS Molder Apprentice None Anesthesiologist: Audie Zurita Type of Anesthesia: General Findings: Bilious fluid draining from midline incision Hostile abdomen with matted adhesions Extensive enterolysis did not reveal source of suspected fistula contents Wound class IV Complications None Prosthetics\Implants used: Intra-abdominal wound VAC with intestinal drape and two separate pieces of black foam Estimated Blood Loss: 100 cc Specimen Removed: None Description of Procedure: Patient was brought urgently to the operating room draining bilious/feculent fluid from his midline wound with surrounding, worsening erythematous changes. He is postoperative day 3 status post explantation of some infected mesh from a chronic infection General anesthesia was induced in the abdomen was prepped and draped in the standard clean fashion. Draining from the lower abdominal midline was foul- smelling, green feculent material. The sutures were cut in the skin opened. There was a 5 x 5 cm fascial defect. Beneath this was matted small bowel with thick granulation tissue over it. There was no clear source for the anticipated fistula/enterotomy. About 90 minutes was spent doing extensive enterolysis mobilizing from the terminal ileum to the mid jejunum. The entire small bowel along the abdominal midline exposed to the previous surgery was mobilized and inspected for times over. No enterotomy or obvious source of the fistula drainage was identified. The abdomen was then irrigated and an intra-abdominal wound VAC was placed with plans to take the patient back in 24-48 hours to re- evaluate. Wound VAC was placed to a 25 x 5 cm wound. Intra-abdominal component/drape was placed followed by two black foam sponges. Wound VAC was placed at 75 cm suctioned Counts repoted as correct: Yes ANDRE RIDDLE MD Oct 19, 2024 19:41
--- NOTE | 2024-10-19 19:53 | RADIOLOGY REPORT ---
EXAM: DI CHEST,SINGLE VIEW HISTORY: ET Tube PLacement TECHNIQUE: 1 view of the chest COMPARISON: DI CHEST,SINGLE VIEW on DOS: 10/16/24 FINDINGS/IMPRESSION: LUNGS: Atelectasis in the right lung base. Peripheral interstitial edema. MEDIASTINUM: Unremarkable BONES: No acute osseous abnormality OTHER: Endotracheal tube 4.8 cm above the kahlil. Enteric tube in the proximal stomach. Cholecystect wm clips.
[2024-10-19 21:21] LABS: RED CELL DISTRIBUTION WIDTH 15.0 % (11.5-14.5)
[2024-10-19 21:24] LABS: MEAN PLATELET VOLUME 6.3 FL (7.4-10.4)
[2024-10-19 21:32] LABS: CREATININE 0.54 MG/DL (0.60-1.10); TOTAL CARBON DIOXIDE 28.1 MMOL/L (24-32); eCRCL 165 ML/MIN; eGFR > 90 ML/MIN
[2024-10-19 21:48] LABS: LYMPHOCYTES % (MANUAL) 2.0 % (21-51); MONOCYTES % (MANUAL) 1.0 % (2-12); NEUTROPHILS % (MANUAL) 97.0 % (42-75)
[2024-10-19 21:49] LABS: PLATELET ESTIMATE INCREASED
[2024-10-19] MEDS: vancomycin/NS 1 GM ADD-VANTAGE 250 ML IV SCH (23:04)
[2024-10-20] VITALS (39 sets, daily range): BP systolic 85–121; BP diastolic 50–76; PULSE 77–100; RESP 11–16; O2SAT 94–98
--- NOTE | 2024-10-20 02:49 | CONSULTATION REPORT ---
Consult Providers to CC CC: KATINA PORTILLO MD s/p surgery. ~ History of Present Illness Reason for Admit\Complaint: s/p Surgery and Abdominal Sepsis History of Present Illness 48 man who underwent hernia repair on the 09/27. He suffered some complications and he had to come back to the hospital on the 10/13. He had to be taken back to the OR for re operation. He is billed to go back to the OR again tomorrow. Currently being treated with antibiotics. He is maintained on Cefepime and Flagyl . He is also being sedated and maintained on mechanical ventilation with Fentanyl and Propofol. He still has an open abdomen with a wound vac in place. He had a mesh that was removed. Currently maintaining adequate Mean Arterial Pressure --with MAP of 80 and BP of 107/70. Maintaining sinus rhythm with HR in the 90's. Currently not on any vasopressors. Making adequate urine output 50cc/hr and receiving 100cc/hr of Lactated Ringers Solution. Current Medications Medications (Trade) Dose Ordered Sig/Charli Route PRN Reason Start Time Stop Time Status Last Admin Dose Admin Hydromorphone HCl (Dilaudid inj.) 1 mg ONCE ONCE IV 10/13/24 23:00 10/13/24 23:01 DC 10/13/24 23:43 1 MG Heparin Sodium (Porcine) (heparin, porcine 5000 unit/ ml 1ml vial) 5,000 unit Q12H SQ 10/14/24 08:00 10/19/24 07:43 5,000 UNIT Acetaminophen/ Hydrocodone Bitart ([place] 5/325mg tablet) 1 tab Q4H PRN PO MODERATE PAIN 4-6 10/13/24 23:30 10/14/24 11:52 1 TAB Acetaminophen/ Hydrocodone Bitart ([place] 10/325mg tab) 1 tab Q4H PRN PO SEVERE PAIN 7-10 10/13/24 23:30 10/19/24 09:34 1 TAB Morphine Sulfate (morphine inj.) 2 mg Q4H PRN IV severe pain (7-10) 10/13/24 23:30 10/18/24 23:29 DC 10/15/24 13:44 2 MG Docusate Sodium (Colace capsule) 100 mg BID PO 10/14/24 08:00 10/19/24 07:41 100 MG Sodium Chloride 1,000 ml @ 100 mls/hr Q10H IV 10/13/24 23:30 10/19/24 20:47 DC 10/19/24 05:18 100 MLS/HR Potassium Chloride (K-DUR tablet) 20 meq Q4H PRN PO Potassium 3.1-3.4 10/13/24 23:30 10/16/24 23:29 DC 10/14/24 11:49 20 MEQ Potassium Chloride (K-DUR tablet) 40 meq Q4H PRN PO Potassium 3.0 or less 10/13/24 23:30 10/16/24 23:29 DC 10/14/24 01:45 40 MEQ Meropenem/Sodium Chloride 50 ml @ 100 mls/hr Q12H IV 10/14/24 08:00 10/15/24 12:25 DC 10/15/24 07:05 100 MLS/HR Diatrizoate Meglum/ Diatrizoate Sod (Gastrografin 66-10 oral solution) 10 ml TID@07,21 PO 10/14/24 21:00 10/15/24 21:01 DC 10/15/24 11:55 10 ML Lactose (Ensure Enlive - 237ML) 1 can TIDWM PO 10/14/24 19:20 10/19/24 07:42 1 CAN Buspirone HCl (Buspar tablet) 15 mg TID PO 10/14/24 21:00 10/19/24 07:41 15 MG Fluoxetine HCl (Prozac capsule) 20 mg DAILY PO 10/15/24 08:00 10/19/24 07:42 20 MG Gabapentin (Neurontin capsule) 300 mg QID PO 10/14/24 21:00 10/19/24 07:41 300 MG Hydrochlorothiazide (HYDROchlorothiazide tablet) 25 mg DAILY PO 10/15/24 08:00 10/17/24 17:00 DC 10/17/24 08:15 25 MG Pantoprazole Sodium (Protonix) 40 mg DAILY PO 10/15/24 08:00 10/19/24 07:41 40 MG Meropenem/Sodium Chloride 50 ml @ 100 mls/hr Q8H IV 10/15/24 12:28 10/17/24 15:33 DC 10/17/24 08:17 100 MLS/HR Morphine Sulfate (morphine inj.) 4 mg Q5M PRN IV SEVERE PAIN 7-10 -1ST CHOICE 10/16/24 12:25 10/16/24 16:27 DC 10/16/24 14:33 4 MG Hydromorphone HCl (Dilaudid 0.2 Mg/ ml Syringe) 0.4 mg Q5M PRN IV SEVERE PAIN 7-10 2ND CHOICE 10/16/24 12:25 10/16/24 16:24 DC 10/16/24 14:40 0.4 MG Acetaminophen 100 ml @ 400 mls/hr ONCE PRN IV moderate or severe pain 4-10 10/16/24 12:25 10/16/24 14:33 DC 10/16/24 14:33 400 MLS/HR Hydromorphone HCl (Dilaudid inj.) 0.5 mg Q4H PRN IV severe pain (7-10) 10/16/24 14:35 10/19/24 12:04 0.5 MG Cefepime/Dextrose 50 ml @ 100 mls/hr Q8H IV 10/17/24 16:00 10/20/24 00:44 100 MLS/HR Metronidazole/ Sodium Chloride 100 ml @ 100 mls/hr Q8H IV 10/17/24 16:00 10/20/24 00:44 100 MLS/HR Lactated Ringer's 1,000 ml @ 100 mls/hr Q10H IV 10/19/24 14:10 10/19/24 17:09 DC 10/19/24 14:42 100 MLS/HR Hydromorphone HCl (Dilaudid inj.) 0.5 mg ONCE STAT IV 10/19/24 14:43 10/19/24 14:47 DC 10/19/24 14:47 0.5 MG Fentanyl Citrate 100 ml @ 3.5 mls/hr [id number] IV 10/19/24 17:40 10/19/24 23:48 13.5 MLS/HR Propofol 100 ml @ 2.175 mls/ hr [id number] IV 10/19/24 17:40 10/19/24 23:49 10.875 MLS/HR Lactated Ringer's 1,000 ml @ 100 mls/hr Q10H IV 10/19/24 20:40 10/19/24 20:57 100 MLS/HR Vancomycin HCl 250 ml @ 166 mls/hr Q8H@0600,1400,2200 IV 10/19/24 20:59 10/19/24 23:04 166 MLS/HR Allergies: Coded Allergies: trazodone (Verified Allergy, Unknown, gave me an erection for 5 days, 06/10/14) dicyclomine (Verified Adverse Reaction, Unknown, SWOLLEN STOMACH, 05/22/24) Home Medications Home Medications Active Reported Lurasidone HCl 120 Mg Tablet 1 Tab PO HS Prozac* (Fluoxetine HCl) 20 Mg Capsule 1 Cap PO DAILY 30 Days Lisinopril* (Lisinopril) 40 Mg Tablet 1 Tab PO DAILY 30 Days Prilosec (Omeprazole) 40 Mg Capsule 1 Cap PO DAILY Neurontin (Gabapentin) 300 Mg Capsule 1 Cap PO QID Hydrochlorothiazide 25 Mg Tab 1 Tab PO DAILY Buspirone HCl 15 Mg Tablet 1 Tab PO TID Ondansetron Odt (Ondansetron HCl) 4 Mg Tab.rapdis 1 Tab PO DAILY PRN Family History Family History: Patient reports no known family medical history. Exam Vitals: Vital Signs Date Time Temp Pulse Resp B/P (MAP) Pulse Ox O2 Delivery O2 Flow Rate FiO2 10/20/24 02:00 98.6 83 12 98/59 (72) 95 Mechanical Ventilator 55 10/19/24 12:26 0.0 Diagnostic Data Last Recorded Lab Results: 10/19/24210810/19/242108 Diagnostic Data: Laboratory Tests Test 10/13/24 22:09 Prothrombin Time 11.0 SECONDS (9.0-12.0) INR International Normalized Ratio 1.1 INR Activated Partial Thromboplast Time 25 SECONDS (22-32) Coagulation Comments Additional Plan 48 yr old man currently in the ICU intubated Septic as a result of having had an enterocutaneous fistula He is s/p infected mesh removal Noted to have been draining feculent material Currently on antibiotics - Cefepime Vancomycin and Flagyl Continue IVF hydration Continue ventilator settings at this time Continue sedation with Fentanyl and Propofol Monitor hemodynamics and Labs Marked leukocytosis noted upto 41 Mild hyponatremia of 133 noted. The plan is for re exploration in the AM We will follow Thank you Date of Service: Oct 20, 2024 Billing Provider: KATINA PORTILLO MD Common Visit Codes: [id number] CARE 30-74 MIN Inpatient Consultation Codes: [id number] CONSULT <60MIN KATINA PORTILLO MD Oct 20, 2024 02:49
[2024-10-20 04:00] LABS: ABG BASE EXCESS 2.5 mmol/L (-2.0-3.0); ABG HCO3 26.6 mmol/L (21.0-28.0); ABG OXYGEN SATURATION 98.4 % (94.0-98.0); ABG PCO2 (T) 40.1 mmHg (35.0-48.0); ABG PH (T) 7.442 (7.350-7.450); ABG PO2 (T) 123.6 mmHg (83.0-108.0); ALLEN'S TEST Modified; FCOHb 1.5 % (0.5-1.5); FHHb 1.6 % (0.0-5.0); FIO2 40.0 mmHg/%; FMetHb 0.3 % (0.0-1.5); FO2Hb 96.6 % (94.0-98.0); MODE VENT - SIMV; PATIENT TEMPERATURE 37.5; PEEP 5 cm H2O; RESPIRATORY RATE 12 b/min; TIDAL VOLUME 600 mL; TOTAL HEMOGLOBIN 10.6 G/dl (13.5-17.5)
--- NOTE | 2024-10-20 06:25 | RADIOLOGY REPORT ---
EXAM: DI CHEST,SINGLE VIEW HISTORY: ET Tube PLacement COMPARISON: DI CHEST,SINGLE VIEW on DOS: 10/19/24, DI CHEST,SINGLE VIEW on DOS: 10/16/24, DI CHEST,SINGLE VIEW on DOS: 05/24/24 TECHNIQUE: Portable AP view of the chest was performed. FINDINGS: There is an endotracheal tube with its tip 4.7 cm above the kahlil. OG tube is re-identified with it s tip in the stomach. There are right basilar infiltrate and effusion, stable. There is new left bas ilar infiltrate and/or effusion. No pneumothorax. The heart is not enlarged. IMPRESSION: 1. Mechanical ventilation with endotracheal and OG tubes as above. 2. Stable right basilar infiltrate and effusion, and new left basilar infiltrate and/or effusion.
[2024-10-20 07:50] LABS: MEAN PLATELET VOLUME 6.9 FL (7.4-10.4); RED CELL DISTRIBUTION WIDTH 15.4 % (11.5-14.5)
[2024-10-20 08:09] LABS: CREATININE 0.59 MG/DL (0.60-1.10); PHOSPHORUS 4.3 MG/DL (2.3-4.5); TOTAL CARBON DIOXIDE 26.5 MMOL/L (24-32); eCRCL 151 ML/MIN; eGFR > 90 ML/MIN
[2024-10-20 08:25] LABS: EOSINOPHILS % (MANUAL) 1.0 % (0-6); LYMPHOCYTES % (MANUAL) 7.0 % (21-51); MONOCYTES % (MANUAL) 5.0 % (2-12); NEUTROPHILS % (MANUAL) 87.0 % (42-75); PLATELET ESTIMATE INCREASED
[2024-10-20] MEDS: ondansetron/PF 4mg/2ml inj IV PRN (10:00)
--- NOTE | 2024-10-20 12:55 | PROGRESS NOTE ---
Subjective Subjective 48-year-old male who was transferred from [facility] in [facility] with the suspicion of an abdominal wound infection after the patient had noted drainage from his surgical site that was foul smelling. He was diagnosed with an infected mesh and was taken to surgery to surgery by Dr. Westbrook. His postoperative course was complicated by fecal peritonitis. He was taken back to surgery by Dr. Rodríguez on the 19 October 2024. He was found to have fecal contamination of his peritoneum. He underwent a washout but no obvious site of perforation was found. The patient was brought back to the ICU intubated on mechanical ventilation. The patient is in no apparent distress. He is awake alert with low-normal blood pressure. Reason for visit: Pulmonary critical care follow-up Reviewed: Care Plan, H&P, Labs, Radiology Review of Systems Changes from previous H/P or p: No Changes Daily Progress Note Exam Vitals Vital Signs Date Time Temp Pulse Resp B/P (MAP) Pulse Ox O2 Delivery O2 Flow Rate FiO2 10/20/24 12:33 13 10/20/24 12:00 99.7 97 115/68 (84) 98 Mechanical Ventilator 35 10/19/24 20:00 0.0 Result Diagram: 10/20/24 0717 10/20/24 0505 Exam HEENT examination: Intubated N/C/AT, PERRLA, EOMI Neck: Supple with no jugular venous distention and no lymphadenopathy. Chest: Symmetric expansion bilaterally. Pulmonary: Clear to auscultation bilaterally with no wheezing no rales rhonchi. Cardiovascular: Normal S1 and S2 without any S3-S4 gallop Abdomen: Nondistended, Diminished bowel sounds, soft with some diffuse tenderness. Extremities: No cyanosis clubbing edema. Neurology: Awake alert and following commands. Results Coagulation Studies Laboratory Tests Test 10/13/24 22:09 Prothrombin Time 11.0 SECONDS (9.0-12.0) INR International Normalized Ratio 1.1 INR Activated Partial Thromboplast Time 25 SECONDS (22-32) Coagulation Comments VTE VTE Risk Score VTE Risk Score Reference Ranges: Score 0-1 = Low Risk (Aggressive mobilization; early ambulation; no VTE prophylaxis required) Score 2: Moderate Risk (Intermittent/Pneumatic Compression Device OR Lovenox/Heparin/Coumadin) Score 3-4: High Risk (Intermittent/Pneumatic Compression Device AND Lovenox/Heparin/Coumadin) Score > or = 5: Highest Risk (Intermittent/Pneumatic Compression Device AND Lovenox/Heparin/Coumadin) Assessment/Plan Plan Acute respiratory failure: Currently on mechanical ventilation. Vent mode changed from SIMV/VC to AC/PRVC. Fecal peritonitis: Status post revision on 10/19/2024 Septic shock: Secondary to fecal peritonitis. He has low normal blood pressure History of hypertension new line history of anxiety/depression Severe protein calorie malnutrition Plan: Continue mechanical ventilation on AC/PRVC mode and reduce tidal volume to 600 No need to attempt to extubate since he will be taken to surgery tomorrow. Continue antibiotic therapy with vancomycin, cefepime and metronidazole. Pain control currently afforded with fentanyl. Keep NPO Initiate TPN Code status: Full code Sedation/analgesia: Propofol and fentanyl IVs: Central line and peripheral IVs Prophylaxis: Protonix and heparin. Nutrition: TPN to be initiated Overall prognosis: Remains guarded Critical care time: 35 minutes excluding time to perform procedures. Expected Outcome/Goals Expected Outcomes/Goals: maintain stable wt,TPN tolerance, bowel regularity, wound healing BLAKE MAYS MD Oct 20, 2024 12:55
[2024-10-20] MEDS ORDERED: magnesium sulf-water 2g/50mL 50 ML IV PRN (13:35)
[2024-10-20] MEDS ORDERED: sodium phosphate inj. 15 MMOL in dextrose 5%-water 250 ML IV PRN (13:35)
[2024-10-20] MEDS ORDERED: sodium phosphate inj. 30 MMOL in dextrose 5%-water 250 ML IV PRN (13:35)
[2024-10-20] MEDS ORDERED: magnesium sulf-water 4G/100mL 100 ML IV PRN (13:35)
--- NOTE | 2024-10-20 14:19 | RADIOLOGY REPORT ---
CHEST RADIOGRAPH Indication: CL PLACEMENT Technique: Single frontal view of the chest was obtained COMPARISON: DI CHEST,SINGLE VIEW on DOS: 10/20/24, DI CHEST,SINGLE VIEW on DOS: 10/19/24, DI CHEST,SINGLE VIEW on DOS: 10/16/24, DI CHEST,SINGLE VIEW on DOS: 05/24/24 FINDINGS: Lines and Tubes: Endotracheal tube, enteric catheter and right central venous catheter in satisfactor y position Lungs: Multifocal airspace disease Pleura: No effusion. No pneumothorax. Cardiomediastinal contours: Unremarkable Bones: Unremarkable IMPRESSION: Lines and tubes in satisfactory position. No significant interval change.
[2024-10-20] MEDS ORDERED: HYDROcodone/acetaminophen 7.5MG/325MG per 15ml UD CUP PO PRN (14:52)
[2024-10-20] MEDS ORDERED: mag hydrox/Alum hydrox/simeth 30ml oral suspension NG PRN (14:53)
[2024-10-20] MEDS ORDERED: HYDROcodone/acetaminophen 7.5MG/325MG per 15ml UD CUP NG PRN ×2 (14:53)
[2024-10-20] MEDS ORDERED: magnesium hydroxide 30ml (MOM) UD suspension NG PRN (14:54)
[2024-10-20] MEDS ORDERED: ondansetron 4mg rapidly disintigrating tab NG PRN (14:54)
[2024-10-20 14:55] LABS: CREATININE 0.60 MG/DL (0.60-1.10); PHOSPHORUS 4.6 MG/DL (2.3-4.5); TOTAL CARBON DIOXIDE 31.6 MMOL/L (24-32); eCRCL 149 ML/MIN; eGFR > 90 ML/MIN
--- NOTE | 2024-10-20 15:14 | PROGRESS NOTE ---
Daily Progress Note Providers to CC ~ sedated, on ventilator Central Line/PICC still needed: Yes Nolasco-Non Protocol Nolasco Indications Met/Not Met: F/C Indications Met Antibiotic Timeout Antibiotic Ordered?: Yes MRSA Education MRSA Education Provided to pt: Yes Subjective As above Objective Vital Signs Date Time Temp Pulse Resp B/P (MAP) Pulse Ox O2 Delivery O2 Flow Rate FiO2 10/20/24 14:48 12 10/20/24 14:00 99.5 88 109/72 (84) 98 Mechanical Ventilator 35 10/19/24 20:00 0.0 Vital signs, stable ,afebrile. Pulse Oximetry reflects adequate oxygenation, FiO2 35%, on mechanical ventilator, sedated, General: well developed, well nourished. Sedated, resting comfortably in the bed, in no acute distress . Skin: Warm, dry, no pallor, no rash or petechiae. HEENT: Atraumatic, normocephalic, EOMI, anicteric sclera B; pink conjunctiva; PERRLA, normal oropharynx, moist oral and nasal mucosa. Tympanic membrane , nose , throat clear. Neck: Trachea midline. Supple, full range of motion, no JVD, bruit , hepatojugular reflex , lymphadenopathy or masses, or other lesions Cardiac: Regular rhythm, regular rate no murmurs, rubs, or gallops. Normal S1 and S2, no S3 noticed. PMI is normal. Respiratory: Equal breath sounds bilaterally, no tachypnea; lungs clear to auscultation bilaterally, no wheezing ,rub or rales, or crackles. Chest wall is symmetric and without deformity. No signs of trauma. Chest wall is nontender. No signs of respiratory distress. Resonance is normal upon percussion bilaterally. Gastrointestinal: Abdomen symmetric, non-distended, soft, dressing on the abdomen clean dry intact, normal bowel sounds x4 quadrant, normoactive, no hepatosplenomegaly , no masses , no bruit, no flank pain bilaterally. No voluntary guarding, rebound, or rigidity. No tenderness to percussion. No pulsatile masses. Equal femoral pulses. No Ludwig's sign or McBurney point tenderness. Back; no CVA tenderness bilaterally, no deformities. Neck and back are without deformity as well. No tenderness noted on palpation of the spinous processes. Spinous processes are midline. Cervical, thoracic, and lumbar paraspinal muscles are not tender and are without spasm. : normal external genitalia, without lesions, swelling, masses or tenderness. Musculoskeletal: Extremities, normal range of motion, non-tender, muscle strength 5/5 x 4. Negative Homans signs bilaterally on lower extremity. Distal pulses full symmetrical, no clubbing, cyanosis , edema. Neurological: Sedated, on ventilator Psych: Sedated, on ventilator Vascular: Good distal pulses, which are equal x4; capillary refill less than 2 seconds. Lymphatic, no lymphadenopathy. Result Diagram: 10/20/24 0717 10/20/24 1422 Coagulation Studies Laboratory Tests Test 10/13/24 22:09 Prothrombin Time 11.0 SECONDS (9.0-12.0) INR International Normalized Ratio 1.1 INR Activated Partial Thromboplast Time 25 SECONDS (22-32) Coagulation Comments Problem\Assessment\Plan Assessment/plan Postoperative wound dehiscence/ abdominal abscess general surgery DR. RIDDLE on the case managing surgical problems Acute abdominal abscess ACUTE ENTEROCUTANEOUS FISTULA not identified during yesterday surgery, S/p incisional hernia repair and robotic lysis of adhesions on 09/17/2024 Status post exploratory laparotomy, postoperative day 1., on mechanical ventilation sedated On IV antibiotics Status post surgery removal of infected mesh, postoperative day , awaiting to go to OR today Hypertension Currently normotensive Hold lisinopril and hydrochlorothiazide Depression/anxiety Continue fluoxetine Continue BuSpar Severe protein calorie malnutrition Nutrition consulted. Ensure t.i.d. DVT gastropathy prophylaxis addressed Sepsis Screening Reassessment Date: Oct 20, 2024 Date of Service: Oct 20, 2024 Billing Provider: KAYE RUIZ MD Common Visit Codes: [id number] INP/OBS CARE(HIGH) KAYE RUIZ MD Oct 20, 2024 15:14
--- NOTE | 2024-10-20 18:13 | PROCEDURE NOTE- Residance ---
Procedure Note Providers to CC ~ Type of Anesthesia Local Informed Consent During the informed consent discussion regarding the procedure, or treatment, I explained the following to the patient/designee: a. Nature of the procedure or treatment and who will perform the procedure or treatment. b. Necessity for procedure and the possible benefits. c. Risks and complications (most common and serious). d. Alternative treatments and the risks, benefits and side effects of each (including no treatment). e. Likelihood of the patient achieving his/her goals without this procedure and surgery treatment. f. Problems that might occur during the recuperation. Description The [facility] Central Line Insertion Practices form was completed by an independent observer (_) starting with the first handwash prior to starting sterile technique. A time out was performed. My hands were washed immediately prior to the procedure. I wore a surgical cap, mask with protective eyewear, full gown and sterile gloves throughout the procedure. The patient was placed in Trendelenburg position. LEFT / RIGHT chest region was prepped using chlorhexidine scrub and draped in sterile fashion using a full drape and sterile probe cover and sterile gel employed. The medial and lateral heads of the sternocleidomastoid muscle were identified as was the carotid pulse. The Internal Jugular vein was identified using the ultrasound. Anesthesia was ach ieved over the vein using 1% lidocaine. Using real-time out of plane guidance, the introducer needle was inserted into the Internal Jugular vein under direct ultrasound visualization. Venous blood was withdrawn. The syringe was removed and a guidewire was advanced into the introducer needle. The guidewire was visualized in the Internal Jugular Vein by ultrasound. A small incision was made at the skin surface with a scalpel and the introducer needle was exchanged for a dilator over the guidewire. After appropriate dilation was obtained, the dilator was exchanged over the wire for a central venous catheter. The wire was removed and the catheter was sutured in place. A sterile sorbaview shield was placed over the catheter at the insertion site. The patient tolerated the procedure without any hemodynamic compromise. At time of procedure completion, all ports aspirated and flushed properly. Post-procedure chest x-ray is pending at this time. Estimated blood loss is <10ml. Date of Service: Oct 20, 2024 Billing Provider: BLAKE MAYS MD, PRAVAHIKA, RES Oct 20, 2024 18:13
[2024-10-20] MEDS: FAT EMUL/SOY/MCT/OLIV/FISH OIL (SMOF) 100 ML IV SCH (20:47)
[2024-10-20] MEDS: ZINC/COPPER/MANGANESE/SELENIUM 1 ML, chromic chloride inj. 10 MCG in AA 5%/CALCIUM/LYTE... IV SCH (20:47)
[2024-10-20] MEDS: mineral oil/petrolatum ophthal oint EACHEYE SCH (20:50)
--- NOTE | 2024-10-20 20:56 | PROGRESS NOTE ---
Progress Note Dictate Providers to CC Bowel Perforation~ Progress Note: Plan: continue full vent support TPN initiated discontinue IVF continue empiric abx fentanyl for pain control NPO for OR tomorrow CCT 60 min using HIPPA compliant A/V technology Antibiotic Ordered?: Yes Objective Vitals Vital Signs Date Time Temp Pulse Resp B/P (MAP) Pulse Ox O2 Delivery O2 Flow Rate FiO2 10/20/24 19:04 95 14 97 35 10/20/24 19:00 99.7 104/67 (79) Mechanical Ventilator 10/19/24 20:00 0.0 Lab Results: 10/20/24 0717 10/20/24 1422 Coagulation Studies Laboratory Tests Test 10/13/24 22:09 Prothrombin Time 11.0 SECONDS (9.0-12.0) INR International Normalized Ratio 1.1 INR Activated Partial Thromboplast Time 25 SECONDS (22-32) Coagulation Comments THOM STEIN MD Oct 20, 2024 20:56
[2024-10-20] MEDS: VANCOMYCIN LEVEL IV ONE (22:06)
--- NOTE | 2024-10-20 22:53 | PROGRESS NOTE ---
Progress Note Dictate Providers to CC CC: MELIDA RIDDLE MD ~ Progress Note: Patient POD 3/1 excision of infected mesh (Dr. Westbrook)/ takeback for suspected bowel injury Covering for Dr. Westbrook over the weekend Despite significant bilious staining and peritonitis, no source identified Patient will need to return for planned second look and closure in next [address] Westbrook or myself will continue to follow Antibiotic Ordered?: Yes Objective Vitals Vital Signs Date Time Temp Pulse Resp B/P (MAP) Pulse Ox O2 Delivery O2 Flow Rate FiO2 10/20/24 22:06 12 10/20/24 22:00 99.7 94 121/73 (89) 96 Mechanical Ventilator 35 10/19/24 20:00 0.0 Lab Results: 10/20/24 0717 10/20/24 1422 Coagulation Studies Laboratory Tests Test 10/13/24 22:09 Prothrombin Time 11.0 SECONDS (9.0-12.0) INR International Normalized Ratio 1.1 INR Activated Partial Thromboplast Time 25 SECONDS (22-32) Coagulation Comments MELIDA RIDDLE MD Oct 20, 2024 22:53
[2024-10-21] VITALS (36 sets, daily range): BP systolic 89–117; BP diastolic 49–73; PULSE 72–94; RESP 12–16; O2SAT 90–98
[2024-10-21 02:29] LABS: MEAN PLATELET VOLUME 6.4 FL (7.4-10.4); RED CELL DISTRIBUTION WIDTH 15.3 % (11.5-14.5)
[2024-10-21 02:43] LABS: ABG BASE EXCESS 0.0 mmol/L (-2.0-3.0); ABG HCO3 25.9 mmol/L (21.0-28.0); ABG OXYGEN SATURATION 95.2 % (94.0-98.0); ABG PCO2 (T) 49.6 mmHg (35.0-48.0); ABG PH (T) 7.339 (7.350-7.450); ABG PO2 (T) 83.2 mmHg (83.0-108.0); ALLEN'S TEST Modified; FCOHb 1.8 % (0.5-1.5); FHHb 4.7 % (0.0-5.0); FIO2 35.0 mmHg/%; FMetHb 0.3 % (0.0-1.5); FO2Hb 93.2 % (94.0-98.0); MODE VENT - PRVC; PATIENT TEMPERATURE 37.5; PEEP 5 cm H2O; RESPIRATORY RATE 12 b/min; TIDAL VOLUME 400 mL; TOTAL HEMOGLOBIN 9.4 G/dl (13.5-17.5)
[2024-10-21 02:43] LABS: CREATININE 0.56 MG/DL (0.60-1.10); PHOSPHORUS 4.2 MG/DL (2.3-4.5); TOTAL CARBON DIOXIDE 29.6 MMOL/L (24-32); eCRCL 159 ML/MIN; eGFR > 90 ML/MIN
--- NOTE | 2024-10-21 05:52 | RADIOLOGY REPORT ---
CHEST RADIOGRAPH Indication: ET Tube PLacement Technique: Single frontal view of the chest was obtained COMPARISON: DI CHEST,SINGLE VIEW on DOS: 10/20/24, DI CHEST,SINGLE VIEW on DOS: 10/20/24, DI CHEST,SINGLE VIEW on DOS: 10/19/24, DI CHEST,SINGLE VIEW on DOS: 10/16/24, DI CHEST,SINGLE VIEW on DOS: 05/24/24 FINDINGS: Lines and Tubes: Right central venous catheter and enteric catheter in satisfactory position Lungs: Multifocal airspace disease Pleura: No effusion. No pneumothorax. Cardiomediastinal contours: Unremarkable Bones: Unremarkable IMPRESSION: Endotracheal tube is slightly low in position. Recommend retraction by 1 cm.
--- NOTE | 2024-10-21 06:25 | PROGRESS NOTE ---
Progress Note Dictate Providers to CC ~ Progress Note: No new acute issues overnight Central Line/PICC still needed: Yes [place] Indications Met/Not Met: F/C Indications Met Antibiotic Ordered?: Yes Subjective Subjective Comfortable Objective Vitals Vital Signs Date Time Temp Pulse Resp B/P (MAP) Pulse Ox O2 Delivery O2 Flow Rate FiO2 10/21/24 05:54 99.5 80 14 90/57 (68) 97 Mechanical Ventilator 35 10/19/24 20:00 0.0 Lab Results: 10/21/24 0205 10/21/24 020 Objective Heart: S1-2 reg Lungs: Ronchi at bases Abd: Decrease BS Ext: No edema Neuro: Arousable Coagulation Studies Laboratory Tests Test 10/13/24 22:09 Prothrombin Time 11.0 SECONDS (9.0-12.0) INR International Normalized Ratio 1.1 INR Activated Partial Thromboplast Time 25 SECONDS (22-32) Coagulation Comments Problem\Assessment\Plan Additional Plan 1-Hypoxemic Resp Failure -Weaning trials 2-S/P Laparotomy: Ventral Hernia repair/Infected Mesh -Pain control -Wound care -OR again in 24-48h? 3-Post-op Ileus -TPN 4-Sepsis due to Enterobacter -De-escalate abx -Continue Cefepime + Joss Garvey CC time 35min Sepsis Screening Reassessment Date: Oct 21, 2024 ANGELA GARVEY MD Oct 21, 2024 06:25
[2024-10-21] MEDS ORDERED: acetaminophen 325mg/10.15ml oral unit dose solution NG PRN (08:37)
[2024-10-21 08:55] LABS: EOSINOPHILS % (MANUAL) 3.0 % (0-6); LYMPHOCYTES % (MANUAL) 7.0 % (21-51); METAMYLEOCYTES% (MANUAL) 1.0 % (0-0); MONOCYTES % (MANUAL) 6.0 % (2-12); NEUTROPHILS % (MANUAL) 83.0 % (42-75)
[2024-10-21 08:56] LABS: LARGE PLATELETS FEW; PLATELET ESTIMATE INCREASED
--- NOTE | 2024-10-21 12:38 | PROGRESS NOTE ---
Progress Note ID Providers to CC ~ Progress Note Progress Note: awake/vss/abd-vac in place/wbc improving a/p 1. s/p ex lap leak-persistent bilious drainage/awaiting repeat lap ANGELITO DURBIN MD Oct 21, 2024 12:38
[2024-10-21] MEDS: fentaNYL 2,500 MCG in Normal Saline 250ml IV soln bag IV SCH (14:29)
--- NOTE | 2024-10-21 19:19 | PROGRESS NOTE ---
Daily Progress Note Providers to CC ~ Antibiotic Timeout Antibiotic Ordered?: Yes Subjective Was seen in CICU patient is intubated responded partially to verbal commands. Objective Vital Signs Date Time Temp Pulse Resp B/P (MAP) Pulse Ox O2 Delivery O2 Flow Rate FiO2 10/21/24 19:03 14 98 Mechanical Ventilator 35 10/21/24 19:00 99.9 84 108/67 (81) 10/19/24 20:00 0.0 Result Diagram: 10/21/2420410/21/24204 General-patient not in any acute distress, ill-appearing HEENT-atraumatic normocephalic, neck supple without elevated JVD, no thyromegaly . No lymphadenopathy bilaterally. Eyes-no icterus or pallor seen in eyes Chest-decreased lung sounds to auscultation bilaterally Heart-S1-S2 normal, regular heart rate no murmur Abdomen bowel sounds positive on auscultation, soft to firm, wound VAC present over abdomen. Neurology-patient was awake responded partially to verbal commends Extremity- no pedal edema Coagulation Studies Laboratory Tests Test 10/13/24 22:09 Prothrombin Time 11.0 SECONDS (9.0-12.0) INR International Normalized Ratio 1.1 INR Activated Partial Thromboplast Time 25 SECONDS (22-32) Coagulation Comments Problem\Assessment\Plan Postoperative wound dehiscence/ abdominal abscess general surgery DR. 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 Ensure t.i.d. DVT gastropathy prophylaxis addressed We will continue to follow patient along with the cobol developer team Date of Service: Oct 21, 2024 Billing Provider: DAREK WALTON MD Common Visit Codes: [id number]-[id number] INP/OBS CARE(MOD) DAREK WALTON MD Oct 21, 2024 19:19
[2024-10-22] VITALS (39 sets, daily range): BP systolic 80–128; BP diastolic 48–77; PULSE 57–121; RESP 12–21; O2SAT 91–99
[2024-10-22] MEDS: CEFEPIME 2gm in D5W 50mL 50 ML IV SCH (00:16)
[2024-10-22 02:26] LABS: MEAN PLATELET VOLUME 6.4 FL (7.4-10.4); RED CELL DISTRIBUTION WIDTH 14.7 % (11.5-14.5)
[2024-10-22 02:46] LABS: CREATININE 0.49 MG/DL (0.60-1.10); PHOSPHORUS 3.4 MG/DL (2.3-4.5); TOTAL CARBON DIOXIDE 32.8 MMOL/L (24-32); eCRCL 182 ML/MIN; eGFR > 90 ML/MIN
--- NOTE | 2024-10-22 03:50 | PROGRESS NOTE ---
Progress Note Dictate Providers to CC ~Evaluated with the help of RN at the bedside using two-way communicating A/V technology. Complicated postoperative abdominal surgery patient. He is waiting to go back to surgery again tomorrow. Has possible enterocutaneous fistula also. Progress Note: Doing well on the vent. Urine output seems to be okay tolerating TPN Believe he is on just about 50% FiO2 at this point Laboratory Tests Test 10/21/24 07:41 10/21/24 14:08 10/21/24 19:56 10/22/24 02:10 Glucometer 110 mg/dl (70-104) 126 mg/dl (70-104) 117 mg/dl (70-104) White Blood Count 15.2 X10'3 (4.5-11.0) Red Blood Count 2.56 X10'6 (4.70-6.10) Hemoglobin 7.6 g/dl (14.0-17.9) Hematocrit 22.6 % (42.0-52.0) Mean Corpuscular Volume 88.2 FL (78-98) Mean Corpuscular Hemoglobin 29.5 PG (27.0-31.0) Mean Corpuscular Hemoglobin Concent 33.4 g/dL (33.0-36.5) Red Cell Distribution Width 14.7 % (11.5-14.5) Platelet Count 598 X10'3 (140-440) Mean Platelet Volume 6.4 FL (7.4-10.4) Neutrophils (%) (Auto) 78.7 % (42-75) Lymphocytes (%) (Auto) 11.0 % (21-51) Monocytes (%) (Auto) 7.2 % (2-12) Eosinophils (%) (Auto) 2.4 % (0-6) Basophils (%) (Auto) 0.7 % (0-1) Neutrophils # (Auto) 11.9 X10'3 (1.8-7.7) Lymphocytes # (Auto) 1.7 X10'3 (1.1-4.8) Monocytes # (Auto) 1.1 X10'3 (0-0.9) Eosinophils # (Auto) 0.4 X10'3 (0-0.9) Basophils # (Auto) 0.1 X10'3 (0-0.2) CBC Comment Sodium Level 138 MMOL/L (135-145) Potassium Level 3.8 MMOL/L (3.5-5.1) Chloride Level 104 MMOL/L (99-107) Carbon Dioxide Level 32.8 MMOL/L (24-32) Anion Gap 1 (8-16) Blood Urea Nitrogen 9 MG/DL (7-18) Creatinine 0.49 MG/DL (0.60-1.10) Estimated GFR/1.73 m2 > 90 ML/MIN BUN/Creatinine Ratio 18.4 (10.0-20.0) Glucose Level 127 MG/DL (70-104) Calcium Level 7.7 MG/DL (8.5-10.1) Phosphorus Level 3.4 MG/DL (2.3-4.5) Magnesium Level 1.5 MG/DL (1.5-2.4) Total Bilirubin 0.1 MG/DL (0.1-1.0) Aspartate Amino Transf (AST/SGOT) 14 U/L (10-37) Alanine Aminotransferase (ALT/SGPT) 9 U/L (12-78) Alkaline Phosphatase 57 IU/L (46-116) Total Protein 4.9 G/DL (6.4-8.2) Albumin 1.4 G/DL (3.4-5.0) Globulin 3.5 G/DL (2.7-4.3) Albumin/Globulin Ratio 0.4 (1.1-1.5) Chemistry Comments Test 10/22/24 02:11 10/22/24 04:41 Glucometer 119 mg/dl (70-104) Blood Gas Specimen Type Arterial Blood Gas Puncture Site Rr O2 Saturation 96.6 % (94.0-98.0) Arterial Blood pH (Temp corrected) 7.360 (7.350-7.450) Arterial Blood pCO2 (Temp correct) 58.3 mmHg (35.0-48.0) Arterial Blood pO2 (Temp corrected) 95.0 mmHg (83.0-108.0) Arterial Blood PO2/FiO2 Ratio 2.60 mmHg/% Arterial Blood HCO3 31.9 mmol/L (21.0-28.0) Arterial Blood Base Excess 5.7 mmol/L (-2.0-3.0) Arterial Blood Oxyhemoglobin 95.0 % (94.0-98.0) Arterial Blood Carboxyhemoglobin 1.4 % (0.5-1.5) Arterial Blood Methemoglobin 0.3 % (0.0-1.5) Arterial Blood Deoxyhemoglobin 3.3 % (0.0-5.0) Himanshu Test Modified Blood Gas Hemoglobin 8.9 G/dl (13.5-17.5) Blood Gas Temperature 37.7 Blood Gas Set Respiration Rate 14 b/min Blood Gas Modality Vent- ac prvc FiO2 35.0 mmHg/% Blood Gas Tidal Volume 400 mL Blood Gas PEEP 5 cm H2O Antibiotic Ordered?: N/A Objective Vitals Vital Signs Date Time Temp Pulse Resp B/P (MAP) Pulse Ox O2 Delivery O2 Flow Rate FiO2 10/22/24 05:55 99.9 78 14 107/65 (79) 95 Mechanical Ventilator 35 10/19/24 20:00 0.0 Lab Results: 10/22/24 0210 10/22/24 0210 Coagulation Studies Laboratory Tests Test 10/13/24 22:09 Prothrombin Time 11.0 SECONDS (9.0-12.0) INR International Normalized Ratio 1.1 INR Activated Partial Thromboplast Time 25 SECONDS (22-32) Coagulation Comments Problem\Assessment\Plan Additional Plan 1. Postop abdominal surgery 2. Anemia of chronic disease 3. Malnutrition 4. Sepsis 6. Leukocytosis 7. Ventilator dependent respiratory failure 8. Hypertension Plan Continue TPN Continue antibiotics surgery as planned Ventilator status king patient appears stable with not at any point closer to extubation or liberation from ventilation support. MITCHEL SPENCE MD Oct 22, 2024 03:50
[2024-10-22 04:44] LABS: ABG BASE EXCESS 5.7 mmol/L (-2.0-3.0); ABG HCO3 31.9 mmol/L (21.0-28.0); ABG OXYGEN SATURATION 96.6 % (94.0-98.0); ABG PCO2 (T) 58.3 mmHg (35.0-48.0); ABG PH (T) 7.360 (7.350-7.450); ABG PO2 (T) 95.0 mmHg (83.0-108.0); ALLEN'S TEST Modified; FCOHb 1.4 % (0.5-1.5); FHHb 3.3 % (0.0-5.0); FIO2 35.0 mmHg/%; FMetHb 0.3 % (0.0-1.5); FO2Hb 95.0 % (94.0-98.0); MODE VENT- AC PRVC; PATIENT TEMPERATURE 37.7; PEEP 5 cm H2O; RESPIRATORY RATE 14 b/min; TIDAL VOLUME 400 mL; TOTAL HEMOGLOBIN 8.9 G/dl (13.5-17.5)
--- NOTE | 2024-10-22 05:34 | RADIOLOGY REPORT ---
CHEST RADIOGRAPH Indication: ET Tube PLacement Technique: Single frontal view of the chest was obtained COMPARISON: DI CHEST,SINGLE VIEW on DOS: 10/21/24, DI CHEST,SINGLE VIEW on DOS: 10/20/24, DI CHEST,SINGLE VIEW on DOS: 10/20/24, DI CHEST,SINGLE VIEW on DOS: 10/19/24, DI CHEST,SINGLE VIEW on DOS: 10/16/24 FINDINGS: Lines and Tubes: Interval retraction of endotracheal tube with tip now projecting approximately 4.8 c m above the level of the kahlil. Remaining lines and tubes are unchanged. Lungs: Slight interval decrease in right basilar infiltrate and/or atelectasis with otherwise stable appearing small bilateral pleural effusions and mild diffuse increased prominence of the pulmonary va sculature. No pneumothorax. Cardiomediastinal contours: Unremarkable Bones: Unremarkable IMPRESSION: 1. Interval decrease in right basilar infiltrate/atelectasis. 2. Stable small bilateral pleural effusions and diffuse increased prominence of the pulmonary vascula ture. 3. Interval retraction of endotracheal tube such that the tip now projects approximately 4.8 cm above the level of the kahlil. 4. Remaining lines and tubes unchanged.
[2024-10-22] MEDS: [UNRECOGNIZED DRUG - REMARK] IV SCH (07:41)
[2024-10-22] MEDS: acetaZOLAMIDE IV 500mg inj IV SCH ×2 (08:06→20:03)
--- NOTE | 2024-10-22 08:17 | PROGRESS NOTE- Residence ---
Progress Note - Resident Providers to CC Resident Creating Document: CLEM TRUJILLO RES ~ Antibiotic Timeout Antibiotic Ordered?: Yes Subjective Seen and examined the patient at bedside. He is responding to verbal commands. Improving with oxygenation with a FiO2 of 35 and PEEP of five. Going to the OR for repeat laparotomy after exploratory laparotomy with persistent bilious drainage. Objective Vital Signs Date Time Temp Pulse Resp B/P (MAP) Pulse Ox O2 Delivery O2 Flow Rate FiO2 10/22/24 07:10 88 16 91 35 10/22/24 07:00 107/66 10/22/24 07:00 99.9 Mechanical Ventilator 10/19/24 20:00 0.0 Result Diagram: 10/22/2420910/22/24209 General-patient not in any acute distress, ill-appearing and on mechanical ventilation AC/PRVC mode with FiO2 35 and PEEP of five HEENT-atraumatic normocephalic, neck supple without elevated JVD, no thyromegaly . No lymphadenopathy bilaterally. Eyes-no icterus or pallor seen in eyes Chest-decreased lung sounds to auscultation bilaterally Heart-S1-S2 normal, regular heart rate no murmur Abdomen : soft to firm, wound VAC present over abdomen. Distended. Sluggish bowel sounds are heard. Neurology-patient was awake responded partially to verbal commends Extremity- no pedal edema Coagulation Studies Laboratory Tests Test 10/13/24 22:09 Prothrombin Time 11.0 SECONDS (9.0-12.0) INR International Normalized Ratio 1.1 INR Activated Partial Thromboplast Time 25 SECONDS (22-32) Coagulation Comments Advance Care Planning Advanced Care planning: Add on additional 30 min Plan Plan Postop abdominal wound dehiscence with infected mesh secondary to incisional hernia repair and robotic lysis of adhesions on 09/17/2024. Status post exploratory laparotomy and excision of infected mesh on 10/16/2024 Status post exploratory laparotomy and extensive enterolysis and wound VAC for enterocutaneous fistula on 10/19/2024 Exploratory laparotomy leak with a persistent bilious drainage Vitals are stable. Labs are improving. PCO2 of 58.3 Plan for repeat laparotomy for expiratory laparotomy leak and persistent bilious drainage on today(per Dr. Westbrook) Discontinued vancomycin and we are Continuing cefepime and Flagyl Downtrended aerating the propofol and discontinued fentanyl On TPN. Acute hypercapnic and hypoxemic respiratory failure Septic shock secondary to fecal peritonitis Contraction alkalosis Still mechanically ventilated with the AC/PRVC mode with FiO2 of 35 and PEEP of five and maintaining saturation at 93. No need to attempt to extubate since he will be taken to surgery at afternoon, today ABG showed pCO2 of 58.3 On acetazolamide 500 mg IV b.i.d. Not on any pressors Hypertension Previously on home medications of Lisinopril 40 mg . GERD On pantoprazole 40 mg IV daily Severe protein malnutrition Severe hypoalbuminemia Serum albumin of 1.4 On TPN the rate 70 mL/hour Anxiety depression On home medications of buspirone 15 mg and escitalopram 10 mg and fluoxetine 20 mg and gabapentin 300 mg Code status: Full code Sedation/analgesia: Propofol and fentanyl IVs: Central line and peripheral IVs Prophylaxis: Protonix and heparin. Nutrition: TPN . Overall prognosis: Remains guarded Critical care time: 35 minutes excluding time to perform procedures. Date of Service: Oct 22, 2024 Billing Provider: ANGELA CORREA MD, VENKATESH, RES Oct 22, 2024 08:17
[2024-10-22] MEDS ORDERED: BUPIVAcaine 2.5mg/ml inj 50ml vial (contains preservative) ONE (12:23)
[2024-10-22] MEDS ORDERED: BUPIVACAINE liposomal/PF 13.3 MG/ML 10mL vial IM ONE (12:23)
[2024-10-22] MEDS ORDERED: LIDOcaine 1% 30ml preserv. free vial ONE (12:23)
[2024-10-22] MEDS ORDERED: rocuronium 10mg/ml inj IV ONE (13:31)
--- NOTE | 2024-10-22 13:33 | PROGRESS NOTE ---
Progress Note Dictate Providers to CC CC: MELIDA RIDDLE MD ~ Progress Note: Covering for Dr. Heladio Westbrook Patient is status post explantation of infected mesh Apparent enterotomy with take back on postoperative day 3, draining bilious fluid from the midline He is three days status post that re-exploration where no obvious source was identified due to difficulty visualizing from gross contamination Open abdomen with a wound VAC in place draining bilious fluid Plan for returned to the operating room today for planned re-exploration and possible bowel resection This was discussed with the patient's father who gave verbal consent over the phone Antibiotic Ordered?: Yes Objective Vitals Vital Signs Date Time Temp Pulse Resp B/P (MAP) Pulse Ox O2 Delivery O2 Flow Rate FiO2 10/22/24 13:16 94 16 97 35 10/22/24 13:00 99.9 112/71 (85) Mechanical Ventilator 10/19/24 20:00 0.0 Lab Results: 10/22/24 0210 10/22/24 0210 Coagulation Studies Laboratory Tests Test 10/13/24 22:09 Prothrombin Time 11.0 SECONDS (9.0-12.0) INR International Normalized Ratio 1.1 INR Activated Partial Thromboplast Time 25 SECONDS (22-32) Coagulation Comments MELIDA RIDDLE MD Oct 22, 2024 13:33
[2024-10-22] MEDS ORDERED: albumin (Human) 5% 250ml 250 ML IV ONE (13:51)
[2024-10-22] MEDS ORDERED: MIDAZolam 1 MG/ML 5ML VIAL ONE (13:52)
[2024-10-22] MEDS: acetaminophen 1,000mg/100ml IV 100 ML IV PRN (16:01)
[2024-10-22 16:35] LABS: ABG BASE EXCESS 3.2 mmol/L (-2.0-3.0); ABG HCO3 29.9 mmol/L (21.0-28.0); ABG OXYGEN SATURATION 97.1 % (94.0-98.0); ABG PCO2 (T) 60.0 mmHg (35.0-48.0); ABG PH (T) 7.321 (7.350-7.450); ABG PO2 (T) 103.2 mmHg (83.0-108.0); ALLEN'S TEST Modified; FCOHb 1.3 % (0.5-1.5); FHHb 2.9 % (0.0-5.0); FIO2 60.0 mmHg/%; FMetHb 0.3 % (0.0-1.5); FO2Hb 95.5 % (94.0-98.0); MODE VENT - prvc; PATIENT TEMPERATURE 38.0; PEEP 5 cm H2O; RESPIRATORY RATE 14 b/min; TIDAL VOLUME 400 mL; TOTAL HEMOGLOBIN 9.8 G/dl (13.5-17.5)
--- NOTE | 2024-10-22 16:56 | OPERATIVE REPORT ---
Operative Report Providers to CC CC: ANDRE RIDDLE MD ~ Date of Procedure: Oct 22, 2024 Pre-Operative Diagnosis: Enterocutaneous fistula, open abdomen Post-Operative Diagnosis Same Procedure Performed Planned abdominal re-exploration (CPT: 82712) Repair of intestinal enterotomy (CPT: 26569) Explantation of mesh (CPT: 20900) Placement of wound VAC 100 cm (2) Surgeon: Andre Riddle MD FACS Staff Cytotechnologist None Anesthesiologist: Chucho Callahan Type of Anesthesia: General Findings: Mid jejunal enterotomy identified and repaired with suture Wound VAC placed within the abdomen left open to a 20 x 5 cm wound Wound class IV Complications None Prosthetics\Implants used: Intra-abdominal wound VAC with intestinal barrier sheet and single black foam sponge Estimated Blood Loss: Less than 20 cc Specimen Removed: Fascial edge prosthetic mesh Description of Procedure: Patient returned to the operating room from the intensive care unit, already intubated. General anesthesia was initiated by the anesthesia provider. External portion and foam sponge of the wound VAC dressing was removed. Abdomen was prepped with Betadine solution and draped. Intestinal protective barrier was removed and the abdomen was re-explored. There was bilious green staining and evidence of feculent peritonitis. During this exploration, almost immediately, a very small vinay of visible mucosa from the jejunal small bowel was noted. The small intestinal perforation measured about 4 mm in diameter. This was repaired with interrupted 3-0 silk suture. Once repaired, the abdomen was re-explored. Small bowel was run through the segment that had been previously mobilized. There was no evidence of other enterotomy or perforation. The abdomen was then irrigated with saline solution followed by antiseptic solution. Some of the visible, contaminated mesh along the fascial edges was debrided back to healthy-appearing tissue. A large piece of contaminated mesh was sent as pathological gross specimen. No attempt at closing the abdomen was made. The intra-abdominal wound VAC was once again applied to a 20 x 5 cm wound. Suctioned without leak was confirmed and the patient was transferred back to the intensive care unit in guarded condition. Counts repoted as correct: Yes ANDRE RIDDLE MD Oct 22, 2024 16:56
[2024-10-22] MEDS: midazolam 100mg in NS 100ml 100 ML IV SCH (17:49)
[2024-10-22] MEDS: NORepinephrine 8mg/ 250ml NS 250 ML IV SCH (17:50)
[2024-10-22] MEDS: NORepinephrine 8mg/ 250ml NS 250 ML IV ONE (17:51)
[2024-10-22] MEDS: COMMUNICATION ORDER 1 EA MISC MC ONE (18:40)
[2024-10-22 18:58] LABS: MEAN PLATELET VOLUME 6.5 FL (7.4-10.4); RED CELL DISTRIBUTION WIDTH 15.2 % (11.5-14.5)
[2024-10-22 19:17] LABS: CREATININE 0.47 MG/DL (0.60-1.10); TOTAL CARBON DIOXIDE 30.3 MMOL/L (24-32); eCRCL 190 ML/MIN; eGFR > 90 ML/MIN
--- NOTE | 2024-10-22 19:53 | PROGRESS NOTE ---
Progress Note Dictate Providers to CC ~ Progress Note: s/p ABDOMINAL WASH OUT Central Line/PICC still needed: N\A [place] Indications Met/Not Met: F/C Indications Met Antibiotic Ordered?: N/A MRSA Education MRSA Education Provided to pt: N/A Objective Vitals Vital Signs Date Time Temp Pulse Resp B/P (MAP) Pulse Ox O2 Delivery O2 Flow Rate FiO2 10/22/24 19:00 99.0 63 16 99/62 (74) 98 Mechanical Ventilator 60 10/19/24 20:00 0.0 Lab Results: 10/22/24 1848 10/22/24 1848 Coagulation Studies Laboratory Tests Test 10/13/24 22:09 Prothrombin Time 11.0 SECONDS (9.0-12.0) INR International Normalized Ratio 1.1 INR Activated Partial Thromboplast Time 25 SECONDS (22-32) Coagulation Comments Counseling Services Smoking & Tobacco Cessation: N/A Advance Care Planning Advanced Care planning: N/A Problem\Assessment\Plan Additional Plan Additional Plan 1. Postop abdominal surgery 2. Anemia of chronic disease 3. Malnutrition 4. Sepsis 6. Leukocytosis 7. Ventilator dependent respiratory failure 8. Hypertension Plan Continue TPN Continue antibiotics surgery as planned Ventilator status stable Albumin and 1 L LR post op, having increased urine output Wean pressors Check lactic acid Patient seen and assessed using HIPAA compliant audio visual aid and discussed case with bedside nurse. Antonella Recinos MD Tele critical care ANTONELLA RECINOS MD Oct 22, 2024 19:53
[2024-10-22] MEDS: ringers solution, lacted 1,000 ML IV ONE (19:58)
[2024-10-22] MEDS: albumin (human) 25% 100 ML IV solution IV ONE (20:02)
--- NOTE | 2024-10-22 20:50 | PROGRESS NOTE ---
Daily Progress Note Providers to CC ~ Antibiotic Timeout Antibiotic Ordered?: Yes Subjective Patient will go today for abdominal re-exploration procedure as per nursing staff Objective Vital Signs Date Time Temp Pulse Resp B/P (MAP) Pulse Ox O2 Delivery O2 Flow Rate FiO2 10/22/24 20:30 66 16 95 35 10/22/24 20:29 Mechanical Ventilator 10/22/24 20:00 98.4 108/62 (77) 10/19/24 20:00 0.0 Result Diagram: 10/22/24184710/22/241847 General-patient not in any acute distress, ill-appearing HEENT-atraumatic normocephalic, neck supple without elevated JVD, no thyromegaly . No lymphadenopathy bilaterally. Eyes-no icterus or pallor seen in eyes Chest-decreased lung sounds to auscultation bilaterally Heart-S1-S2 normal, regular heart rate no murmur Abdomen bowel sounds positive on auscultation, soft to firm, wound VAC present over abdomen. Neurology-patient was awake responded partially to verbal commends Extremity- no pedal edema Coagulation Studies Laboratory Tests Test 10/13/24 22:09 Prothrombin Time 11.0 SECONDS (9.0-12.0) INR International Normalized Ratio 1.1 INR Activated Partial Thromboplast Time 25 SECONDS (22-32) Coagulation Comments Problem\Assessment\Plan Postoperative wound dehiscence/ abdominal abscess general surgery DR. 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 Ensure t.i.d. DVT gastropathy prophylaxis addressed We will continue to follow patient along with the marine equipment research engineer team Date of Service: Oct 22, 2024 Billing Provider: DAREK WALTON MD Common Visit Codes: [id number] INP/OBS CARE(MOD) DAREK WALTON MD Oct 22, 2024 20:49
[2024-10-23] VITALS (36 sets, daily range): BP systolic 86–109; BP diastolic 44–68; PULSE 60–101; RESP 1–20; O2SAT 88–100
[2024-10-23 02:38] LABS: MEAN PLATELET VOLUME 7.1 FL (7.4-10.4)
[2024-10-23 02:40] LABS: RED CELL DISTRIBUTION WIDTH 15.1 % (11.5-14.5)
[2024-10-23 02:50] LABS: CREATININE 0.39 MG/DL (0.60-1.10); PHOSPHORUS 3.5 MG/DL (2.3-4.5); TOTAL CARBON DIOXIDE 28.9 MMOL/L (24-32); eCRCL 229 ML/MIN; eGFR > 90 ML/MIN
[2024-10-23] MEDS: potassium Cl 20mEq/100mL bag 100 ML IV ONE ×2 (03:38→05:17)
[2024-10-23 05:22] LABS: ABG BASE EXCESS 0.0 mmol/L (-2.0-3.0); ABG HCO3 26.2 mmol/L (21.0-28.0); ABG OXYGEN SATURATION 98.7 % (94.0-98.0); ABG PCO2 (T) 50.3 mmHg (35.0-48.0); ABG PH (T) 7.334 (7.350-7.450); ABG PO2 (T) 142.3 mmHg (83.0-108.0); ALLEN'S TEST Modified; FCOHb 1.2 % (0.5-1.5); FHHb 1.3 % (0.0-5.0); FIO2 35.0 mmHg/%; FMetHb 0.3 % (0.0-1.5); FO2Hb 97.2 % (94.0-98.0); MODE VENT- SIMV VC; PATIENT TEMPERATURE 37.0; PEEP 5 cm H2O; RESPIRATORY RATE 16 b/min; TIDAL VOLUME 400 mL; TOTAL HEMOGLOBIN 9.3 G/dl (13.5-17.5)
--- NOTE | 2024-10-23 05:47 | RADIOLOGY REPORT ---
CHEST RADIOGRAPH Indication: ET Tube PLacement Technique: Single frontal view of the chest was obtained COMPARISON: DI CHEST,SINGLE VIEW on DOS: 10/22/24, DI CHEST,SINGLE VIEW on DOS: 10/21/24, DI CHEST,SINGLE VIEW on DOS: 10/20/24, DI CHEST,SINGLE VIEW on DOS: 10/20/24, DI CHEST,SINGLE VIEW on DOS: 10/19/24 FINDINGS: Lines and Tubes: Endotracheal tube, enteric catheter and right central venous catheter in satisfactor y position Lungs: Multifocal airspace disease Pleura: Small right pleural effusion No pneumothorax. Cardiomediastinal contours: Unremarkable Bones: Unremarkable IMPRESSION: Lines and tubes in satisfactory position. No significant interval change.
--- NOTE | 2024-10-23 12:10 | PROGRESS NOTE- Residence ---
Progress Note - Resident Providers to CC Resident Creating Document: CLEM TRUJILLO RES ~ Antibiotic Timeout Antibiotic Ordered?: Yes Subjective Seen and examined the patient at bedside. He is responding to verbal commands and awake even with sedation- fentanyl, propofol, midazolam. Improving with oxygenation with a FiO2 of 35 and PEEP of five. He is on negative side of fluid balance. Blood pressure is on soft side today and he is on Levophed. Underwent abdominal re-exploration and Repair of intestinal enterotomy, Explantation of mesh on Placement of wound VAC by Dr. Rodríguez. Objective Vital Signs Date Time Temp Pulse Resp B/P (MAP) Pulse Ox O2 Delivery O2 Flow Rate FiO2 10/23/24 11:42 115/70 10/23/24 11:08 90 16 95 35 10/23/24 11:00 99.3 Mechanical Ventilator 10/19/24 20:00 0.0 Result Diagram: 10/23/2420410/23/24204 General-patient not in any acute distress, ill-appearing and on mechanical ventilation AC/PRVC mode with FiO2 35 and PEEP of five on sedated with fentanyl, propofol, midazolam responding to verbal commands HEENT-atraumatic normocephalic, neck supple without elevated JVD, no thyromegaly . No lymphadenopathy bilaterally. Eyes-no icterus or pallor seen in eyes Chest-decreased lung sounds to auscultation bilaterally Heart-S1-S2 normal, regular heart rate no murmur Abdomen : soft to firm, wound VAC present over abdomen. Distended. Sluggish bowel sounds are heard. Neurology-patient was awake responded partially to verbal commends Extremity- no pedal edema Coagulation Studies Laboratory Tests Test 10/13/24 22:09 Prothrombin Time 11.0 SECONDS (9.0-12.0) INR International Normalized Ratio 1.1 INR Activated Partial Thromboplast Time 25 SECONDS (22-32) Coagulation Comments Advance Care Planning Advanced Care planning: Add on additional 30 min Plan Plan Postop abdominal wound dehiscence with infected mesh secondary to incisional hernia repair and robotic lysis of adhesions on 09/17/2024. Status post exploratory laparotomy and excision of infected mesh on 10/16/2024 Status post exploratory laparotomy and extensive enterolysis and wound VAC for enterocutaneous fistula on 10/19/2024 Exploratory laparotomy leak with a persistent bilious drainage Status post abdominal reexploration with repair of intestinal enterotomy and explantation of mesh, placement of wound VAC on 10/22/2024 Vitals are stable. Labs are improving. PCO2 of 58.3 Plan for repeat laparotomy for expiratory laparotomy leak and persistent bilious drainage on today(per Dr. Westbrook) Discontinued vancomycin and we are Continuing cefepime and Flagyl Downtrended aerating the propofol and discontinued fentanyl On TPN. On 10/23/2024: Plan per surgeon- Dr. Rodríguez Underwent abdominal re-exploration surgery with the explanation of mesh and wound VAC placement on 10/22/[address] Rodríguez-. May need the abdomen closure. We will continue cefepime and metronidazole Acute hypercapnic and hypoxemic respiratory failure Septic shock secondary to fecal peritonitis Contraction alkalosis Still mechanically ventilated with the AC/PRVC mode with FiO2 of 35 and PEEP of five and maintaining saturation at 93. No need to attempt to extubate since he will be taken to surgery at afternoon, today ABG showed pCO2 of 58.3 On acetazolamide 500 mg IV b.i.d. Not on any pressors On 10/23/2024: On mechanical ventilation with a FiO2 of 35, peep of five. ABG today showed pH of 7.334 on pCO2 of 50.3. On acetazolamide 500 mg IV b.i.d for contraction alkalosis. On sedation with propofol, fentanyl, midazolam Hypertension Previously on home medications of Lisinopril 40 mg . We held in view of hypotension GERD On pantoprazole 40 mg IV daily Severe protein malnutrition Severe hypoalbuminemia Serum albumin of 1.4 On TPN the rate 80 mL/hour Anxiety depression On home medications of buspirone 15 mg and escitalopram 10 mg and fluoxetine 20 mg and gabapentin 300 mg Code status: Full code Sedation/analgesia: Propofol and fentanyl, midazolam IVs: Central line and peripheral IVs Prophylaxis: Protonix and heparin. Nutrition: TPN . Overall prognosis: Remains guarded Critical care time: 35 minutes excluding time to perform procedures. Date of Service: Oct 23, 2024 Billing Provider: ANGELA CORREA MD,CLEM, RES Oct 23, 2024 12:10
--- NOTE | 2024-10-23 19:54 | PROGRESS NOTE ---
Daily Progress Note Providers to CC ~ Antibiotic Timeout Antibiotic Ordered?: Yes Subjective patient was as seen in CICU lethargic unable to respond to verbal commands intubated. WBC 26.6 today . Surgeon and head of it managing the case Objective Vital Signs Date Time Temp Pulse Resp B/P (MAP) Pulse Ox O2 Delivery O2 Flow Rate FiO2 10/23/24 19:13 90 10/23/24 19:00 80 15 88 10/23/24 18:04 102/66 10/23/24 18:00 99.3 Mechanical Ventilator 10/19/24 20:00 0.0 Result Diagram: 10/23/2420410/23/24204 General-patient is ill-appearing, intubated HEENT-atraumatic normocephalic, Eyes-no icterus or pallor seen in eyes Chest-decreased lung sounds to auscultation bilaterally Heart-S1-S2 normal, regular heart rate no murmur Abdomen bowel sounds positive on auscultation, soft to firm, wound VAC present over abdomen. Neurology-patient lethargic , not responded to verbal commends Extremity- no pedal edema , unable to move extremities Coagulation Studies Laboratory Tests Test 10/13/24 22:09 Prothrombin Time 11.0 SECONDS (9.0-12.0) INR International Normalized Ratio 1.1 INR Activated Partial Thromboplast Time 25 SECONDS (22-32) Coagulation Comments Problem\Assessment\Plan Postoperative wound dehiscence/ abdominal abscess general surgery DR. 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 Ensure t.i.d. DVT gastropathy prophylaxis addressed We will continue to follow patient along with the head of it and surgical team Date of Service: Oct 23, 2024 Billing Provider: DAREK WALTON MD Common Visit Codes: [id number] INP/OBS CARE(MOD) DAREK WALTON MD Oct 23, 2024 19:54
--- NOTE | 2024-10-23 19:55 | PROGRESS NOTE ---
Progress Note Dictate Providers to CC CC: MELIDA RIDDLE MD ~ Progress Note: Subsequent surgical care Patient is about a week out from explantation of infected mesh Incidental enterotomy taken back to the operating room on postoperative day 3, b ut no obvious source identified The enterotomy was identified yesterday in the operating room and controlled with suture repair Questionable greenish drainage from the wound VAC today Return to the operating room tomorrow, planned re-exploration If the enterotomy site is leaking, I will resect that site with a attempted abdominal closure I will discuss this with patient's father tomorrow and plan for operating room later in the afternoon. Antibiotic Ordered?: Yes Objective Vitals Vital Signs Date Time Temp Pulse Resp B/P (MAP) Pulse Ox O2 Delivery O2 Flow Rate FiO2 10/23/24 19:13 90 10/23/24 19:00 80 15 88 10/23/24 18:04 102/66 10/23/24 18:00 99.3 Mechanical Ventilator 10/19/24 20:00 0.0 Lab Results: 10/23/24 0205 10/23/24 0205 Coagulation Studies Laboratory Tests Test 10/13/24 22:09 Prothrombin Time 11.0 SECONDS (9.0-12.0) INR International Normalized Ratio 1.1 INR Activated Partial Thromboplast Time 25 SECONDS (22-32) Coagulation Comments MELIDA RIDDLE MD Oct 23, 2024 19:55
--- NOTE | 2024-10-23 20:31 | PROGRESS NOTE ---
Progress Note Dictate Providers to CC post ex lap~ Progress Note: Acute hypoxic respiratory failure was on 35% fio2 now increased to 90% due to hypoxia. Plan: repeat chest xray now ABG lasix 40mg now increase PEEP to 10 CCT 50 min using HIPPA compliant A/V technology Antibiotic Ordered?: Yes Objective Vitals Vital Signs Date Time Temp Pulse Resp B/P (MAP) Pulse Ox O2 Delivery O2 Flow Rate FiO2 10/23/24 19:13 90 10/23/24 19:00 80 15 88 10/23/24 18:04 102/66 10/23/24 18:00 99.3 Mechanical Ventilator 10/19/24 20:00 0.0 Lab Results: 10/23/24 0205 10/23/24 0205 Coagulation Studies Laboratory Tests Test 10/13/24 22:09 Prothrombin Time 11.0 SECONDS (9.0-12.0) INR International Normalized Ratio 1.1 INR Activated Partial Thromboplast Time 25 SECONDS (22-32) Coagulation Comments THOM STEIN MD Oct 23, 2024 20:31
--- NOTE | 2024-10-23 21:10 | RADIOLOGY REPORT ---
CHEST RADIOGRAPH Indication: desating Technique: Single frontal view of the chest was obtained COMPARISON: DI CHEST,SINGLE VIEW on DOS: 10/23/24, DI CHEST,SINGLE VIEW on DOS: 10/22/24, DI CHEST,SINGLE VIEW on DOS: 10/21/24, DI CHEST,SINGLE VIEW on DOS: 10/20/24, DI CHEST,SINGLE VIEW on DOS: 10/20/24 FINDINGS: Lines and Tubes: Endotracheal tube, enteric catheter and right central venous catheter in satisfactor y position Lungs: Multifocal airspace disease Pleura: No effusion. No pneumothorax. Cardiomediastinal contours: Unremarkable Bones: Unremarkable IMPRESSION: Lines and tubes in satisfactory position. No significant interval change.
[2024-10-23 21:22] LABS: ABG BASE EXCESS -0.9 mmol/L (-2.0-3.0); ABG HCO3 25.6 mmol/L (21.0-28.0); ABG OXYGEN SATURATION 99.8 % (94.0-98.0); ABG PCO2 (T) 53.5 mmHg (35.0-48.0); ABG PH (T) 7.302 (7.350-7.450); ABG PO2 (T) 372.2 mmHg (83.0-108.0); ALLEN'S TEST Modified; FCOHb 1.2 % (0.5-1.5); FHHb 0.2 % (0.0-5.0); FIO2 90.0 mmHg/%; FMetHb 0.3 % (0.0-1.5); FO2Hb 98.3 % (94.0-98.0); MODE PRVC; PATIENT TEMPERATURE 37.6; PEEP 10 cm H2O; RESPIRATORY RATE 16 b/min; TIDAL VOLUME 400 mL; TOTAL HEMOGLOBIN 8.9 G/dl (13.5-17.5)
[2024-10-24] VITALS (34 sets, daily range): BP systolic 74–131; BP diastolic 41–82; PULSE 59–88; RESP 19–20; O2SAT 98–100
[2024-10-24 01:37] LABS: ABG BASE EXCESS -0.8 mmol/L (-2.0-3.0); ABG HCO3 23.7 mmol/L (21.0-28.0); ABG OXYGEN SATURATION 99.1 % (94.0-98.0); ABG PCO2 (T) 40.3 mmHg (35.0-48.0); ABG PH (T) 7.393 (7.350-7.450); ABG PO2 (T) 149.6 mmHg (83.0-108.0); ALLEN'S TEST Modified; FCOHb 1.5 % (0.5-1.5); FHHb 0.9 % (0.0-5.0); FIO2 45.0 mmHg/%; FMetHb 0.3 % (0.0-1.5); FO2Hb 97.3 % (94.0-98.0); MODE PRV; PATIENT TEMPERATURE 38.1; PEEP 10 cm H2O; RESPIRATORY RATE 20 b/min; TIDAL VOLUME 400 mL; TOTAL HEMOGLOBIN 8.4 G/dl (13.5-17.5)
[2024-10-24 03:42] LABS: MEAN PLATELET VOLUME 7.5 FL (7.4-10.4); RED CELL DISTRIBUTION WIDTH 15.1 % (11.5-14.5)
[2024-10-24 04:24] LABS: CREATININE 0.39 MG/DL (0.60-1.10); PHOSPHORUS 3.4 MG/DL (2.3-4.5); TOTAL CARBON DIOXIDE 28.3 MMOL/L (24-32); eCRCL 229 ML/MIN; eGFR > 90 ML/MIN
[2024-10-24] MEDS: magnesium sulf-water 2g/50mL 50 ML IV ONE (04:59)
[2024-10-24] MEDS: potassium Cl 20mEq/100mL bag 100 ML IV SCH (05:00)
--- NOTE | 2024-10-24 06:02 | RADIOLOGY REPORT ---
CHEST RADIOGRAPH Indication: ET Tube PLacement Technique: Single frontal view of the chest was obtained Comparison: DI CHEST,SINGLE VIEW on DOS: 10/23/24 FINDINGS: Lines and Tubes: Endotracheal tube terminates 4.8 cm above the kahlil. Right central venous catheter terminates in the superior vena cava. The enteric tube courses below the left hemidiaphragm and the tip extends outside the field of view. Lungs: Right lower lobe consolidation. Left basilar consolidation. Pleura: Bilateral pleural effusions. No pneumothorax. Cardiomediastinal contours: Unremarkable Bones: No acute osseous abnormality. IMPRESSION: 1. Stable position of the support lines and tubes. 2. Bibasilar consolidation, right greater than left. 3. Bilateral pleural effusions.
--- NOTE | 2024-10-24 08:09 | PROGRESS NOTE- Residence ---
Progress Note - Resident Providers to CC Resident Creating Document: CLEM TRUJILLO RES ~ Antibiotic Timeout Antibiotic Ordered?: Yes Subjective Seen and examined the patient at bedside. He is improving on more responding to verbal commands and alert, awake even with sedation- fentanyl, propofol, midazolam. 350 mL of green colored bile is removed. No new increase in oxygen demand and today and still sedated and mechanically ventilated with FiO2 of 35 and PEEP of five. He is on negative side of fluid balance. Blood pressure is fluctuating between 90 to 120s with Levophed. Going to the OR for abdominal wall closure on today. He is on negative fluid balance of 2241 so far. Objective Vital Signs Date Time Temp Pulse Resp B/P (MAP) Pulse Ox O2 Delivery O2 Flow Rate FiO2 10/24/24 07:38 66 20 100 35 10/24/24 07:26 128/60 10/24/24 06:00 99.1 Mechanical Ventilator Result Diagram: 10/24/24 0154 10/24/24 0154 General-patient not in any acute distress, ill-appearing and on mechanical ventilation AC/PRVC mode with FiO2 35 and PEEP of five on sedated with fentanyl, propofol, midazolam responding to verbal commands HEENT-atraumatic normocephalic, neck supple without elevated JVD, no thyromegaly . No lymphadenopathy bilaterally. Eyes-no icterus or pallor seen in eyes Chest-decreased lung sounds to auscultation bilaterally Heart-S1-S2 normal, regular heart rate no murmur Abdomen : soft to firm, wound VAC present over abdomen. Distended. Sluggish bowel sounds are heard. Neurology-patient was awake responded partially to verbal commends Extremity- no pedal edema Coagulation Studies Laboratory Tests Test 10/13/24 22:09 Prothrombin Time 11.0 SECONDS (9.0-12.0) INR International Normalized Ratio 1.1 INR Activated Partial Thromboplast Time 25 SECONDS (22-32) Coagulation Comments Advance Care Planning Advanced Care planning: Add on additional 30 min Plan Plan Postop abdominal wound dehiscence with infected mesh secondary to incisional hernia repair and robotic lysis of adhesions on 09/17/2024. Status post exploratory laparotomy and excision of infected mesh on 10/16/2024 Status post exploratory laparotomy and extensive enterolysis and wound VAC for enterocutaneous fistula on 10/19/2024 Exploratory laparotomy leak with a persistent bilious drainage Status post abdominal reexploration with repair of intestinal enterotomy and explantation of mesh, placement of wound VAC on 10/22/2024 Vitals are stable. Labs are improving. PCO2 of 58.3 Plan for repeat laparotomy for expiratory laparotomy leak and persistent bilious drainage on today(per Dr. Westbrook) Discontinued vancomycin and we are Continuing cefepime and Flagyl Downtrended aerating the propofol and discontinued fentanyl On TPN. On 10/23/2024: Plan per surgeon- Dr. Rodríguez Underwent abdominal re-exploration surgery with the explanation of mesh and wound VAC placement on 10/22/[address] Rodríguez-. May need the abdomen closure. We will continue cefepime and metronidazole 10/24/2024: Plan per Dr. Rodríguez-going to the OR for reexploration of abdomen and possible abdominal wound closure Patient is on better side today clinically and in both vitals & labs On nystatin local application We will continue cefepime and metronidazole Acute hypercapnic and hypoxemic respiratory failure Septic shock secondary to fecal peritonitis Contraction alkalosis Still mechanically ventilated with the AC/PRVC mode with FiO2 of 35 and PEEP of five and maintaining saturation at 93. No need to attempt to extubate since he will be taken to surgery at afternoon, today ABG showed pCO2 of 58.3 On acetazolamide 500 mg IV b.i.d. Not on any pressors On 10/23/2024: On mechanical ventilation with a FiO2 of 35, peep of five. ABG today showed pH of 7.334 on pCO2 of 50.3. On acetazolamide 500 mg IV b.i.d for contraction alkalosis. On sedation with propofol, fentanyl, midazolam 10/24/2024: Still sedated with fentanyl, propofol, midazolam and intubated with mechanical ventilation of FiO2 of 35 and PEEP of 5. Received 3 doses of acetazolamide so far. Reviewed the ABG and it is on the better side when compared to the past few days Hypertension Previously on home medications of Lisinopril 40 mg . We held in view of hypotension GERD On pantoprazole 40 mg IV daily Severe protein malnutrition Severe hypoalbuminemia Serum albumin of 1.4 On TPN the rate 80 mL/hour Anxiety depression On home medications of buspirone 15 mg and escitalopram 10 mg and fluoxetine 20 mg and gabapentin 300 mg Code status: Full code Sedation/analgesia: Propofol and fentanyl, midazolam IVs: Central line and peripheral IVs Prophylaxis: Protonix and heparin. Nutrition: TPN . Overall prognosis: Remains guarded Critical care time: 35 minutes excluding time to perform procedures. Date of Service: Oct 24, 2024 Billing Provider: ANGELA CORREA MD,[facility] Oct 24, 2024 08:09
[2024-10-24] MEDS ORDERED: potassium Cl 20 mEq SR tablet PO PRN ×2 (10:45)
[2024-10-24] MEDS ORDERED: potassium Cl 40MEQ/1/2NS 520ml 520 ML IV PRN (10:45)
[2024-10-24] MEDS ORDERED: magnesium Cl slow-release 64mg tablet PO PRN (10:45)
[2024-10-24] MEDS ORDERED: magnesium sulf-water 2g/50mL 50 ML IV PRN (10:45)
[2024-10-24] MEDS ORDERED: potassium Cl 40MEQ/270ML bag 270 ML IV PRN (10:45)
[2024-10-24] MEDS: potassium Cl 40MEQ/270ML bag 270 ML IV PRN (13:36)
[2024-10-24] MEDS ORDERED: BUPIVAcaine 2.5mg/ml inj 50ml vial (contains preservative) ONE ×2 (14:07)
[2024-10-24] MEDS ORDERED: LIDOcaine 1% 30ml preserv. free vial ONE (14:07)
[2024-10-24] MEDS ORDERED: BUPIVACAINE liposomal/PF 13.3 MG/ML 10mL vial IM ONE (14:08)
[2024-10-24] MEDS ORDERED: acetaminophen 325mg/10.15ml oral unit dose solution PO PRN (15:47)
[2024-10-24] MEDS ORDERED: HYDROcodone/acetaminophen 7.5MG/325MG per 15ml UD CUP PO PRN ×2 (15:47)
[2024-10-24] MEDS ORDERED: magnesium hydroxide 30ml (MOM) UD suspension PO PRN (15:48)
[2024-10-24] MEDS ORDERED: mag hydrox/Alum hydrox/simeth 30ml oral suspension PO PRN (15:49)
[2024-10-24] MEDS ORDERED: acetaminophen 325mg/10.15ml oral unit dose solution NG PRN (15:52)
[2024-10-24] MEDS ORDERED: magnesium hydroxide 30ml (MOM) UD suspension NG PRN (15:53)
[2024-10-24] MEDS ORDERED: HYDROcodone/acetaminophen 7.5MG/325MG per 15ml UD CUP NG PRN ×2 (15:53)
[2024-10-24] MEDS ORDERED: mag hydrox/Alum hydrox/simeth 30ml oral suspension NG PRN (15:54)
[2024-10-24] MEDS ORDERED: potassium Cl 20 mEq SR tablet NG PRN (15:55)
--- NOTE | 2024-10-24 19:42 | PROGRESS NOTE ---
Progress Note Dictate Providers to CC CC: MELIDA RIDDLE MD ~ Progress Note: Abdomen remains open There was still some question of possible leak from the intestine If the same site continues to leak, we will plan for bowel resection Plan is for returned to the operating room today for reexploration and possible bowel resection May need another returned prior to attempting closure Case discussed with patient's father who is signing consent. Antibiotic Ordered?: Yes Objective Vitals Vital Signs Date Time Temp Pulse Resp B/P (MAP) Pulse Ox O2 Delivery O2 Flow Rate FiO2 10/24/24 19:04 62 19 100 35 10/24/24 19:00 99.3 97/53 (68) Mechanical Ventilator Lab Results: 10/24/24 0154 10/24/24 1140 Coagulation Studies Laboratory Tests Test 10/13/24 22:09 Prothrombin Time 11.0 SECONDS (9.0-12.0) INR International Normalized Ratio 1.1 INR Activated Partial Thromboplast Time 25 SECONDS (22-32) Coagulation Comments MELIDA RIDDLE MD Oct 24, 2024 19:42
--- NOTE | 2024-10-24 20:37 | PROGRESS NOTE ---
Daily Progress Note Providers to CC ~ Antibiotic Timeout Antibiotic Ordered?: Yes Subjective Patient is seen in CICU very lethargic intubated as per nursing staff he will go for the revision surgery around 3:00 p.m. today Objective Vital Signs Date Time Temp Pulse Resp B/P (MAP) Pulse Ox O2 Delivery O2 Flow Rate FiO2 10/24/24 20:21 108/62 10/24/24 19:04 62 19 100 35 10/24/24 19:00 99.3 Mechanical Ventilator Result Diagram: 10/24/24 0154 10/24/24 1140 General-patient is ill-appearing, intubated HEENT-atraumatic normocephalic, Eyes-no icterus or pallor seen in eyes Chest-decreased lung sounds to auscultation bilaterally Heart-S1-S2 normal, regular heart rate no murmur Abdomen bowel sounds positive on auscultation, soft to firm, wound VAC present over abdomen. Neurology-patient lethargic , not responded to verbal commends Extremity- no pedal edema , unable to move extremities Coagulation Studies Laboratory Tests Test 10/13/24 22:09 Prothrombin Time 11.0 SECONDS (9.0-12.0) INR International Normalized Ratio 1.1 INR Activated Partial Thromboplast Time 25 SECONDS (22-32) Coagulation Comments Problem\Assessment\Plan Postoperative wound dehiscence/ abdominal abscess general surgery DR. 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 Ensure t.i.d. DVT gastropathy prophylaxis addressed We will continue to follow patient along with the precipitation equipment tender and surgical team Date of Service: Oct 24, 2024 Billing Provider: DAREK WALTON MD Common Visit Codes: [id number] INP/OBS CARE(MOD) DAREK WALTON MD Oct 24, 2024 20:37
--- NOTE | 2024-10-24 20:44 | PROGRESS NOTE ---
Progress Note Dictate Providers to CC ~ Progress Note: 48 year old male admitted post removal of mesh. plan was to undergo closure today but was postponed due to issues with consent. Plan: continue sedation ovenight full vent support NPO continue levophed for shock CCT 60 min using HIPPA compliant A/V technology Antibiotic Ordered?: Yes Objective Vitals Vital Signs Date Time Temp Pulse Resp B/P (MAP) Pulse Ox O2 Delivery O2 Flow Rate FiO2 10/24/24 20:21 108/62 10/24/24 19:04 62 19 100 35 10/24/24 19:00 99.3 Mechanical Ventilator Lab Results: 10/24/24 0154 10/24/24 1140 Coagulation Studies Laboratory Tests Test 10/13/24 22:09 Prothrombin Time 11.0 SECONDS (9.0-12.0) INR International Normalized Ratio 1.1 INR Activated Partial Thromboplast Time 25 SECONDS (22-32) Coagulation Comments THOM STEIN MD Oct 24, 2024 20:44
[2024-10-25] VITALS (32 sets, daily range): BP systolic 84–140; BP diastolic 46–88; PULSE 60–119; RESP 17–22; O2SAT 90–100
[2024-10-25 02:19] LABS: MEAN PLATELET VOLUME 6.3 FL (7.4-10.4); RED CELL DISTRIBUTION WIDTH 15.2 % (11.5-14.5)
[2024-10-25 02:40] LABS: ABG BASE EXCESS 1.7 mmol/L (-2.0-3.0); ABG HCO3 26.0 mmol/L (21.0-28.0); ABG OXYGEN SATURATION 97.0 % (94.0-98.0); ABG PCO2 (T) 39.1 mmHg (35.0-48.0); ABG PH (T) 7.440 (7.350-7.450); ABG PO2 (T) 89.6 mmHg (83.0-108.0); ALLEN'S TEST Modified; FCOHb 1.6 % (0.5-1.5); FHHb 2.9 % (0.0-5.0); FIO2 35.0 mmHg/%; FMetHb 0.3 % (0.0-1.5); FO2Hb 95.2 % (94.0-98.0); MODE PRVC; PATIENT TEMPERATURE 37.0; PEEP 5 cm H2O; RESPIRATORY RATE 20 b/min; TIDAL VOLUME 400 mL; TOTAL HEMOGLOBIN 8.1 G/dl (13.5-17.5)
[2024-10-25 02:47] LABS: CREATININE 0.27 MG/DL (0.60-1.10); PHOSPHORUS 3.3 MG/DL (2.3-4.5); TOTAL CARBON DIOXIDE 27.7 MMOL/L (24-32); eCRCL 331 ML/MIN; eGFR > 90 ML/MIN
[2024-10-25] MEDS: potassium Cl 40MEQ/270ML bag 270 ML IV ONE (03:34)
--- NOTE | 2024-10-25 06:50 | RADIOLOGY REPORT ---
CHEST RADIOGRAPH Indication: ET Tube PLacement Technique: Single frontal view of the chest was obtained COMPARISON: DI CHEST,SINGLE VIEW on DOS: 10/24/24, DI CHEST,SINGLE VIEW on DOS: 10/23/24, DI CHEST,SINGL E VIEW on DOS: 10/23/24, DI CHEST,SINGLE VIEW on DOS: 10/22/24, DI CHEST,SINGLE VIEW on DOS: 10/21/24 FINDINGS: Lines and Tubes: Slight interval advancement of endotracheal tube such that the tip now projects appr oximately 3.2 cm above the level of the kahlil. Remaining lines and tubes unchanged. Lungs: Persistent right basilar pulmonary airspace disease and grossly stable appearing small bilater al pleural effusions. No pneumothorax. Cardiomediastinal contours: Cardiomegaly. Bones: Unremarkable IMPRESSION: 1. Persistent right basilar pulmonary airspace disease and bilateral pleural effusions. 2. Cardiomegaly. 3. Slight interval advancement of endotracheal tube as above. Remaining lines and tubes unchanged.
--- NOTE | 2024-10-25 10:37 | PROGRESS NOTE- Residence ---
Progress Note - Resident Providers to CC Resident Creating Document: CLEM TRUJILLO RES ~ Antibiotic Timeout Antibiotic Ordered?: Yes Subjective Seen and examined the patient at bedside. He is going in right direction. Blood pressure and oxygen saturation is maintaining with norepinephrine and mechanical ventilated and sedated. Going to the OR for reexploration and possible bowel resection on today. He is on positive fluid balance side. Objective Vital Signs Date Time Temp Pulse Resp B/P (MAP) Pulse Ox O2 Delivery O2 Flow Rate FiO2 10/25/24 09:14 68 20 94 35 10/25/24 06:00 99.5 94/54 (67) Mechanical Ventilator Result Diagram: 10/25/24 0200 10/25/24 0200 General-patient not in any acute distress, ill-appearing and on mechanical ventilation AC/PRVC mode with FiO2 35 and PEEP of five on sedated with fentanyl, propofol, midazolam responding to verbal commands HEENT-atraumatic normocephalic, neck supple without elevated JVD, no thyromegaly . No lymphadenopathy bilaterally. Eyes-no icterus or pallor seen in eyes Chest-decreased lung sounds to auscultation bilaterally Heart-S1-S2 normal, regular heart rate no murmur Abdomen : soft to firm, wound VAC present over abdomen. Distended. Sluggish bowel sounds are heard. Neurology-patient was awake responded partially to verbal commends Extremity- no pedal edema Coagulation Studies Laboratory Tests Test 10/13/24 22:09 Prothrombin Time 11.0 SECONDS (9.0-12.0) INR International Normalized Ratio 1.1 INR Activated Partial Thromboplast Time 25 SECONDS (22-32) Coagulation Comments Advance Care Planning Advanced Care planning: Add on additional 30 min Plan Plan Assessment and plan Postop abdominal wound dehiscence with infected mesh secondary to incisional hernia repair and robotic lysis of adhesions on 09/17/2024. Status post exploratory laparotomy and excision of infected mesh on 10/16/2024 Status post exploratory laparotomy and extensive enterolysis and wound VAC for enterocutaneous fistula on 10/19/2024 Exploratory laparotomy leak with a persistent bilious drainage Status post abdominal reexploration with repair of intestinal enterotomy and explantation of mesh, placement of wound VAC on 10/22/2024 Vitals are stable. Labs are improving. PCO2 of 58.3 Plan for repeat laparotomy for expiratory laparotomy leak and persistent bilious drainage on today(per Dr. Westbrook) Discontinued vancomycin and we are Continuing cefepime and Flagyl Downtrended aerating the propofol and discontinued fentanyl On TPN. On 10/23/2024: Plan per surgeon- Dr. Rodríguez Underwent abdominal re-exploration surgery with the explanation of mesh and wound VAC placement on 10/22/[address] Rodríguez-. May need the abdomen closure. We will continue cefepime and metronidazole 10/24/2024: Plan per Dr. Rodríguez-going to the OR for reexploration of abdomen and possible abdominal wound closure Patient is on better side today clinically and in both vitals & labs On nystatin local application We will continue cefepime and metronidazole 10/25/2024: Plan per Dr. Rodríguez - re-exploration of abdomen and possible bowel resection. He is improving. We are continuing cefepime and metronidazole Acute hypercapnic and hypoxemic respiratory failure Septic shock secondary to fecal peritonitis, resolving Contraction alkalosis Still mechanically ventilated with the AC/PRVC mode with FiO2 of 35 and PEEP of five and maintaining saturation at 93. No need to attempt to extubate since he will be taken to surgery at afternoon, today ABG showed pCO2 of 58.3 On acetazolamide 500 mg IV b.i.d. Not on any pressors On 10/23/2024: On mechanical ventilation with a FiO2 of 35, peep of five. ABG today showed pH of 7.334 on pCO2 of 50.3. On acetazolamide 500 mg IV b.i.d for contraction alkalosis. On sedation with propofol, fentanyl, midazolam 10/24/2024: Still sedated with fentanyl, propofol, midazolam and intubated with mechanical ventilation of FiO2 of 35 and PEEP of 5. Received 3 doses of acetazolamide so far. Reviewed the ABG and it is on the better side when compared to the past few days 10/25/2024 Still on propofol, fentanyl, midazolam sedation and mechanical ventilation with AC PRVC of FiO2 of 35, peep of 5. ABG looks unimpressive Hypertension Previously on home medications of Lisinopril 40 mg . We held in view of hypotension GERD On pantoprazole 40 mg IV daily Severe protein malnutrition Severe hypoalbuminemia Serum albumin of 1.4 On TPN the rate 80 mL/hour Anxiety depression On home medications of buspirone 15 mg and escitalopram 10 mg and fluoxetine 20 mg and gabapentin 300 mg Code status: Full code Sedation/analgesia: Propofol and fentanyl, midazolam IVs: Central line and peripheral IVs Prophylaxis: Protonix and heparin. Nutrition: TPN . Overall prognosis: Remains guarded Critical care time: 35 minutes excluding time to perform procedures. Clem Trujillo ICU resident Date of Service: Oct 25, 2024 Billing Provider: ANGELA CORREA MD,[facility] Oct 25, 2024 10:37
[2024-10-25] MEDS: albumin (Human) 5% 250ml 500 ML IV ONE (10:51)
[2024-10-25] MEDS: K and/or MAG REPLACEMENT MC SCH (11:22)
--- NOTE | 2024-10-25 12:39 | PROGRESS NOTE ---
Progress Note ID Providers to CC ~ Progress Note Progress Note: discussed procedure including risks/benefits/alternatives ANGELITO DURBIN MD Oct 25, 2024 12:39
[2024-10-25] MEDS ORDERED: albumin (Human) 5% 250ml 250 ML IV ONE (13:04)
[2024-10-25] MEDS ORDERED: rocuronium 10mg/ml inj IV ONE ×2 (14:04)
--- NOTE | 2024-10-25 14:37 | OPERATIVE REPORT ---
Operative Report Providers to CC ~ Date of Procedure: Oct 25, 2024 Pre-Operative Diagnosis: Enterocutaneous fistula, open abdomen Post-Operative Diagnosis SAME as PRE-Op Procedure Performed repeat lap/small bowel resection Surgeon: maria eugenia Bottling Line Operator samson Anesthesiologist: Chucho Callahan Type of Anesthesia: General Findings: incomplete closure enterotomy Estimated Blood Loss: 150 ml Specimen Removed: small bowel ANGELITO DURBIN MD Oct 25, 2024 14:37
--- NOTE | 2024-10-25 15:42 | RADIOLOGY REPORT ---
DI CHEST,SINGLE VIEW, HISTORY: hypoxia COMPARISON: DI CHEST,SINGLE VIEW on DOS: 10/25/24, DI CHEST,SINGLE VIEW on DOS: 10/24/24, DI CHEST,SING LE VIEW on DOS: 10/23/24 DI CHEST,SINGLE VIEW on DOS: 10/25/24, DI CHEST,SINGLE VIEW on DOS: 10/24/24, DI CHEST,SINGLE VIEW on D OS: 10/23/24 TECHNICAL DATA: 1 view of the chest was obtained. FINDINGS: Lines and tubes: Stable lines and tubes. Cardiomediastinal silhouette: Large Pulmonary vasculature: Prominent Lung expansion: Low Lung airspace: Patchy bilateral airspace opacities Lung interstitium: increased Pleura: normal Pneumothorax: no Bones: Unremarkable Other: no IMPRESSION: Similar lung aeration with bilateral patchy airspace opacities. Stable lines and tubes.
[2024-10-25 15:51] LABS: ABG BASE EXCESS -1.0 mmol/L (-2.0-3.0); ABG HCO3 25.2 mmol/L (21.0-28.0); ABG OXYGEN SATURATION 96.0 % (94.0-98.0); ABG PCO2 (T) 49.5 mmHg (35.0-48.0); ABG PH (T) 7.325 (7.350-7.450); ABG PO2 (T) 91.1 mmHg (83.0-108.0); ALLEN'S TEST POSITIVE; FCOHb 1.1 % (0.5-1.5); FHHb 3.9 % (0.0-5.0); FIO2 100.0 mmHg/%; FMetHb 0.3 % (0.0-1.5); FO2Hb 94.7 % (94.0-98.0); MODE VENT - AC; PATIENT TEMPERATURE 37.1; PEEP 5 cm H2O; RESPIRATORY RATE 20 b/min; TIDAL VOLUME 400 mL; TOTAL HEMOGLOBIN 9.5 G/dl (13.5-17.5)
--- NOTE | 2024-10-25 18:34 | PROGRESS NOTE ---
Daily Progress Note Providers to CC ~ Antibiotic Timeout Antibiotic Ordered?: Yes Subjective Patient is seen in CICU very lethargic intubated . he is s/p repeat lap/small bowel resection for Enterocutaneous fistula, open abdomen done by Dr Westbrook. Objective Vital Signs Date Time Temp Pulse Resp B/P (MAP) Pulse Ox O2 Delivery O2 Flow Rate FiO2 10/25/24 18:00 99.5 107 21 124/83 (97) 98 Mechanical Ventilator 70 Result Diagram: 10/25/24 0200 10/25/24 1021 General-patient is ill-appearing, intubated HEENT-atraumatic normocephalic, Eyes-no icterus or pallor seen in eyes Chest-decreased lung sounds to auscultation bilaterally Heart-S1-S2 normal, regular heart rate no murmur Abdomen bowel sounds positive on auscultation, soft to firm, wound VAC present over abdomen. Neurology-patient lethargic , not responded to verbal commends Extremity- no pedal edema , unable to move extremities Coagulation Studies Laboratory Tests Test 10/13/24 22:09 Prothrombin Time 11.0 SECONDS (9.0-12.0) INR International Normalized Ratio 1.1 INR Activated Partial Thromboplast Time 25 SECONDS (22-32) Coagulation Comments Problem\Assessment\Plan Postoperative wound dehiscence/ abdominal abscess general surgery DR. RIDDLE on the case managing surgical problems Acute abdominal abscess acute enterocutaneous fistula not identified during yesterday surgery, S/p incisional hernia repair and robotic lysis of adhesions on 09/17/2024 Status post exploratory laparotomy, postoperative day 1., on mechanical ventilation sedated On IV antibiotics Status post surgery removal of infected mesh, s/p Planned abdominal re-exploration Repair of intestinal enterotomy, Explantation of mesh , Placement of wound VAC he is s/p repeat lap/small bowel resection for Enterocutaneous fistula, open abdomen done by Dr Westbrook. Hypertension Currently normotensive Hold lisinopril and hydrochlorothiazide on pressors agents h/o Depression/anxiety Severe protein calorie malnutrition Nutrition consulted. Ensure t.i.d. DVT gastropathy prophylaxis addressed We will continue to follow patient along with the alum operator and surgical team Date of Service: Oct 25, 2024 Billing Provider: DAREK WALTON MD Common Visit Codes: [id number] INP/OBS CARE(MOD) DAREK WALTON MD Oct 25, 2024 18:33
--- NOTE | 2024-10-25 19:42 | OPERATIVE REPORT ---
DATE OF SURGERY: 10/25/2024 DICTATING PHYSICIAN: Heladio Westbrook MD PREOPERATIVE DIAGNOSIS: Status post laparotomy with enterocutaneous fistula. POSTOPERATIVE DIAGNOSIS: Status post laparotomy with enterocutaneous fistula. PROCEDURES PERFORMED: * Repeat laparotomy. * Small bowel resection. SURGEON: Heladio Westbrook MD QA AUDITOR: Sara. ANESTHESIA: General/Dr. Callahan. DRAINS: None. INDICATIONS FOR OPERATION: A 48-year-old male underwent robotic repair of incisional hernia. A mesh was placed through the enterotomy. The patient was brought back for surgery 1-2 months post repair. A piece of mesh was placed infected mesh. He was taken back to Surgery for mesh removal. The patient was taken to Surgery per Dr. Rodríguez few days ago and enterotomy closed with sutures. The patient was taken back to Surgery open abdomen. INTRAOPERATIVE FINDINGS: The patient had incomplete closure of the enterotomy site. DESCRIPTION OF PROCEDURE: The patient was placed supine on the operating table. After induction of general anesthesia, the abdomen was prepped and draped. Wound VAC was removed. Abdomen was then explored. Enterotomy site had a placed with repair sutures in the small bowel consistent with an incomplete repair. small bowel was resected proximal and distal to the enterotomy repair site. [id number] anastomosis was then constructed using an Endo-BRETT stapler with a black load. Enterotomy was oversewn using sutures of 2-0 V-Loc. There were concerns about bowel edema. Abdomen was subsequently irrigated with large amount of antibiotic-containing solution. Skin flaps were raised. Skin was then closed with a running suture of #2 nylon. Dressing was applied. The patient was transferred to the ICU in critical condition. Heladio Westbrook MD TID: [id number] RECEIPT: [id number] TIFFANIE/SACHI/NIMISHA
--- NOTE | 2024-10-25 21:56 | PROGRESS NOTE ---
Progress Note Dictate Providers to CC ~ Progress Note: Taken to OR today and skin closed, fascia remains open. Plan: decrease fio2 to 40% as tolerated continue abx d/c sedation in am for SAT NPO CCT 51 min using HIPPA compliant A/V technology Antibiotic Ordered?: Yes Objective Vitals Vital Signs Date Time Temp Pulse Resp B/P (MAP) Pulse Ox O2 Delivery O2 Flow Rate FiO2 10/25/24 20:32 115 21 97 60 10/25/24 20:22 110/76 10/25/24 20:00 99.7 Mechanical Ventilator Lab Results: 10/25/24 0200 10/25/24 1021 Coagulation Studies Laboratory Tests Test 10/13/24 22:09 Prothrombin Time 11.0 SECONDS (9.0-12.0) INR International Normalized Ratio 1.1 INR Activated Partial Thromboplast Time 25 SECONDS (22-32) Coagulation Comments THOM STEIN MD Oct 25, 2024 21:56
[2024-10-26] VITALS (33 sets, daily range): BP systolic 105–153; BP diastolic 73–86; PULSE 79–109; RESP 9–24; O2SAT 93–100
[2024-10-26 02:29] LABS: MEAN PLATELET VOLUME 6.4 FL (7.4-10.4); RED CELL DISTRIBUTION WIDTH 15.1 % (11.5-14.5)
[2024-10-26 02:41] LABS: CREATININE 0.38 MG/DL (0.60-1.10); PHOSPHORUS 3.7 MG/DL (2.3-4.5); TOTAL CARBON DIOXIDE 28.7 MMOL/L (24-32); eCRCL 235 ML/MIN; eGFR > 90 ML/MIN
[2024-10-26 03:37] LABS: ABG BASE EXCESS -0.5 mmol/L (-2.0-3.0); ABG HCO3 23.6 mmol/L (21.0-28.0); ABG OXYGEN SATURATION 98.8 % (94.0-98.0); ABG PCO2 (T) 37.9 mmHg (35.0-48.0); ABG PH (T) 7.416 (7.350-7.450); ABG PO2 (T) 145.6 mmHg (83.0-108.0); ALLEN'S TEST Modified; FCOHb 1.2 % (0.5-1.5); FHHb 1.2 % (0.0-5.0); FIO2 60.0 mmHg/%; FMetHb 0.3 % (0.0-1.5); FO2Hb 97.3 % (94.0-98.0); MODE PRVC; PATIENT TEMPERATURE 38.0; PEEP 10 cm H2O; RESPIRATORY RATE 20 b/min; TIDAL VOLUME 400 mL; TOTAL HEMOGLOBIN 9.1 G/dl (13.5-17.5)
--- NOTE | 2024-10-26 06:17 | PROGRESS NOTE ---
Progress Note Dictate Providers to CC ~ Progress Note: S/P Re-exploratory laparotomy with wound closure Nolasco Indications Met/Not Met: F/C Indications Met Antibiotic Ordered?: Yes Subjective Subjective No new acute issues overnight Objective Vitals Vital Signs Date Time Temp Pulse Resp B/P (MAP) Pulse Ox O2 Delivery O2 Flow Rate FiO2 10/26/24 05:49 20 10/26/24 04:00 100.4 104 122/84 (97) 97 Mechanical Ventilator 50 Lab Results: 10/26/24 0200 10/26/24 0200 Objective Heart: S1-2 reg Lungs: Ronchi at bases Abd: Decrease BS Ext: No edema Neuro: sedated Coagulation Studies Laboratory Tests Test 10/13/24 22:09 Prothrombin Time 11.0 SECONDS (9.0-12.0) INR International Normalized Ratio 1.1 INR Activated Partial Thromboplast Time 25 SECONDS (22-32) Coagulation Comments Problem\Assessment\Plan Additional Plan 1-Resp Failure NOT related to surgical procedure -F/U ABG -Weaning trials 1-Iq-pxhwmtpfwcz laparotomy with SB resection -Pain control -Supportive Tx 3-Sepsis -Broad spectrum abx Marty Garvey CC time 35min Sepsis Screening Reassessment Date: Oct 26, 2024 ANGELA GARVEY MD Oct 26, 2024 06:17
--- NOTE | 2024-10-26 06:22 | RADIOLOGY REPORT ---
CHEST RADIOGRAPH Indication: ET Tube PLacement Technique: Single frontal view of the chest was obtained COMPARISON: DI CHEST,SINGLE VIEW on DOS: 10/25/24, DI CHEST,SINGLE VIEW on DOS: 10/25/24, DI CHEST,SING LE VIEW on DOS: 10/24/24, DI CHEST,SINGLE VIEW on DOS: 10/23/24, DI CHEST,SINGLE VIEW on DOS: 10/23/24 FINDINGS: Lines and Tubes: The endotracheal tube has been slightly retracted, such that the tip now projects ap proximately 4.3 cm above the level of the kahlil. The remaining lines and tubes are unchanged. Lungs: Slight interval decrease in conspicuity of multifocal bilateral pulmonary airspace disease wit h stable appearing small bilateral pleural effusions. No pneumothorax. Cardiomediastinal contours: Unremarkable Bones: Unremarkable IMPRESSION: 1. Slight interval decrease in bilateral pulmonary airspace disease. 2. Stable small bilateral pleural effusions. 3. Lines and tubes unchanged.
[2024-10-26] MEDS ORDERED: dexmedetomidin/NS 400mcg/100ml 100 ML IV SCH (11:55)
--- NOTE | 2024-10-26 15:05 | PROGRESS NOTE ---
Progress Note ID Providers to CC ~ Progress Note Progress Note: INTUBATED/VSS/ABD-DISTENDED/LABS NOTED A/P 1. S/P REPEAT LAP-STABLE/WEAN VENT-SUPPORTIVE CARE ANGELITO DURBIN MD Oct 26, 2024 15:05
[2024-10-26] MEDS ORDERED: iohexol 350 MG/ML 50ML vial IV ONE (17:10)
--- NOTE | 2024-10-26 17:54 | PROGRESS NOTE ---
Daily Progress Note Providers to CC ~ Antibiotic Timeout Antibiotic Ordered?: Yes Subjective Patient is seen in CICU intubated lethargic further management as per surgical and retail mortgage banker team Objective Vital Signs Date Time Temp Pulse Resp B/P (MAP) Pulse Ox O2 Delivery O2 Flow Rate FiO2 10/26/24 15:25 96 16 98 Nasal Cannula 4.0 10/26/24 15:15 30 10/26/24 13:00 100.2 124/81 (95) Result Diagram: 10/26/24 0200 10/26/24 0200 General-patient is ill-appearing, intubated HEENT-atraumatic normocephalic, Eyes-no icterus or pallor seen in eyes Chest-decreased lung sounds to auscultation bilaterally Heart-S1-S2 normal, regular heart rate no murmur Abdomen bowel sounds positive on auscultation, soft to firm, wound VAC present over abdomen. Neurology-patient lethargic , not responded to verbal commends Extremity- no pedal edema , unable to move extremities Coagulation Studies Laboratory Tests Test 10/13/24 22:09 Prothrombin Time 11.0 SECONDS (9.0-12.0) INR International Normalized Ratio 1.1 INR Activated Partial Thromboplast Time 25 SECONDS (22-32) Coagulation Comments Problem\Assessment\Plan Postoperative wound dehiscence/ abdominal abscess general surgery DR. RIDDLE on the case managing surgical problems Acute abdominal abscess acute enterocutaneous fistula not identified during yesterday surgery, S/p incisional hernia repair and robotic lysis of adhesions on 09/17/2024 Status post exploratory laparotomy, postoperative day 1., on mechanical ventilation sedated On IV antibiotics Status post surgery removal of infected mesh, s/p Planned abdominal re-exploration Repair of intestinal enterotomy, Explantation of mesh , Placement of wound VAC he is s/p repeat lap/small bowel resection for Enterocutaneous fistula, open abdomen done by Dr Westbrook. Hypertension Currently normotensive Hold lisinopril and hydrochlorothiazide on pressors agents h/o Depression/anxiety Severe protein calorie malnutrition Nutrition consulted. Ensure t.i.d. DVT gastropathy prophylaxis addressed We will continue to follow patient along with the retail mortgage banker and surgical team Date of Service: Oct 26, 2024 Billing Provider: DAREK WALTON MD Common Visit Codes: [id number] INP/OBS CARE(MOD) DAREK WALTON MD Oct 26, 2024 17:54
[2024-10-26] MEDS: HYDROmorphone inj. 0.5 MG/0.5 ML DISP.SYRIN IV PRN (21:16)
[2024-10-27] VITALS (25 sets, daily range): BP systolic 115–133; BP diastolic 64–82; PULSE 66–96; RESP 12–23; TEMP 100.5; O2SAT 94–100
[2024-10-27 02:58] LABS: MEAN PLATELET VOLUME 6.4 FL (7.4-10.4); RED CELL DISTRIBUTION WIDTH 14.8 % (11.5-14.5)
[2024-10-27 03:13] LABS: CREATININE 0.35 MG/DL (0.60-1.10); PHOSPHORUS 2.9 MG/DL (2.3-4.5); TOTAL CARBON DIOXIDE 30.3 MMOL/L (24-32); eCRCL 255 ML/MIN; eGFR > 90 ML/MIN
[2024-10-27] MEDS: magnesium sulf-water 4G/100mL 100 ML IV PRN (08:27)
--- NOTE | 2024-10-27 10:25 | RADIOLOGY REPORT ---
Indication: verify NGT placement Technique: DI ABDOMEN,SINGLE VIEW(KUB)[id number] Comparison: None FINDINGS/IMPRESSION: The nasogastric tube tip projects towards the expected region of the proximal stomach. Central venous catheter tip projecting over the SVC. Bilateral pulmonary patchy airspace opacities, pulmonary vascular congestion. Cholecystectomy. Moderate volume stool in the colon. Nolasco catheter. Penile implant.
[2024-10-27] MEDS: HYDROmorph/NS 0.2 mg/ml PCA 100 ML IV SCH (10:34)
--- NOTE | 2024-10-27 13:12 | PROGRESS NOTE ---
Progress Note ID Providers to CC ~ Progress Note Progress Note: complains of pain/vss/abd-distended/labs noted a/p 1. s/p laparotomy-slow progress/ cont supportive care ANGELITO DURBIN MD Oct 27, 2024 13:12
[2024-10-27] MEDS: FAT EMUL/SOY/MCT/OLIV/FISH OIL (SMOF) 100 ML IV SCH (19:12)
--- NOTE | 2024-10-27 20:02 | PROGRESS NOTE ---
Daily Progress Note Providers to CC ~ Antibiotic Timeout Antibiotic Ordered?: Yes Subjective Patient was seen in CICU he is able to talk today feeling tired Objective Vital Signs Date Time Temp Pulse Resp B/P (MAP) Pulse Ox O2 Delivery O2 Flow Rate FiO2 10/27/24 19:00 12 10/27/24 19:00 100.6 84 128/70 (89) 96 Nasal Cannula 2.0 10/26/24 15:15 30 Result Diagram: 10/27/24 0249 10/27/24 0249 General-patient is ill-appearing, extubated HEENT-atraumatic normocephalic, Eyes-no icterus or pallor seen in eyes Chest-decreased lung sounds to auscultation bilaterally Heart-S1-S2 normal, regular heart rate no murmur Abdomen bowel sounds positive on auscultation, soft to firm, wound VAC present over abdomen. Neurology-patient lethargic , partially responded to verbal commends Extremity- no pedal edema , unable to move extremities Coagulation Studies Laboratory Tests Test 10/13/24 22:09 Prothrombin Time 11.0 SECONDS (9.0-12.0) INR International Normalized Ratio 1.1 INR Activated Partial Thromboplast Time 25 SECONDS (22-32) Coagulation Comments Problem\Assessment\Plan Postoperative wound dehiscence/ abdominal abscess general surgery DR. RIDDLE on the case managing surgical problems Acute abdominal abscess acute enterocutaneous fistula not identified during yesterday surgery, S/p incisional hernia repair and robotic lysis of adhesions on 09/17/2024 Status post exploratory laparotomy, postoperative day 1., on mechanical ventilation sedated On IV antibiotics Status post surgery removal of infected mesh, s/p Planned abdominal re-exploration Repair of intestinal enterotomy, Explantation of mesh , Placement of wound VAC he is s/p repeat lap/small bowel resection for Enterocutaneous fistula, open abdomen done by Dr Westbrook. Hypertension Currently normotensive Hold lisinopril and hydrochlorothiazide on pressors agents h/o Depression/anxiety Severe protein calorie malnutrition Nutrition consulted. Ensure t.i.d. DVT gastropathy prophylaxis addressed We will continue to follow patient along with the underwater welder and surgical team Date of Service: Oct 27, 2024 Billing Provider: DAREK WALTON MD Common Visit Codes: [id number] INP/OBS CARE(MOD) DAREK WALTON MD Oct 27, 2024 20:02
[2024-10-28] VITALS (25 sets, daily range): BP systolic 119–150; BP diastolic 51–94; PULSE 68–102; RESP 13–20; O2SAT 92–100
[2024-10-28 03:15] LABS: MEAN PLATELET VOLUME 7.0 FL (7.4-10.4); RED CELL DISTRIBUTION WIDTH 15.0 % (11.5-14.5)
[2024-10-28 03:32] LABS: CREATININE 0.30 MG/DL (0.60-1.10); PHOSPHORUS 2.5 MG/DL (2.3-4.5); TOTAL CARBON DIOXIDE 28.3 MMOL/L (24-32); eCRCL 298 ML/MIN; eGFR > 90 ML/MIN
[2024-10-28] MEDS: potassium Cl 20mEq/100mL bag 100 ML IV ONE ×2 (03:55→05:10)
[2024-10-28] MEDS: PCA WASTE DOCUMENTATION 1 MG ML MC SCH (11:11)
[2024-10-28] MEDS: HYDROmorph/NS 0.2 mg/ml PCA 100 ML IV SCH (15:00)
--- NOTE | 2024-10-28 18:46 | PROGRESS NOTE ---
Progress Note ID Providers to CC ~ Progress Note Progress Note: pain improving/vss/abd-distended/labs noted a/p 1. s/p lap-slow progress/vibra later this week ANGELITO DURBIN MD Oct 28, 2024 18:46
--- NOTE | 2024-10-28 19:11 | PROGRESS NOTE ---
Daily Progress Note Providers to CC ~ Antibiotic Timeout Antibiotic Ordered?: Yes Subjective The patient has no acute complaints and denies any issues with shortness of breath or being dyspneic however on exam the patient has coarse breath sounds throughout all listening torrez. The patient otherwise is stable Objective Vital Signs Date Time Temp Pulse Resp B/P (MAP) Pulse Ox O2 Delivery O2 Flow Rate FiO2 10/28/24 18:00 80 19 132/94 (107) 95 Room Air 10/28/24 10:00 99.9 10/27/24 23:36 0.0 21 Result Diagram: 10/28/2425110/28/24251 Gen. No acute distress alert and oriented 4 Lungs clear to ascultation bilaterally, no wheezes rales or rhonchi appreciated Heart normal sinus rhythm no murmurs rubs or clicks noted Abdomen firm and distended-midline dressing is placed Lower extremities no clubbing cyanosis, nor edema appreciated bilaterally Coagulation Studies Laboratory Tests Test 10/13/24 22:09 Prothrombin Time 11.0 SECONDS (9.0-12.0) INR International Normalized Ratio 1.1 INR Activated Partial Thromboplast Time 25 SECONDS (22-32) Coagulation Comments Problem\Assessment\Plan Postoperative wound dehiscence/ abdominal abscess general surgery DR. RIDDLE on the case managing surgical problems Acute abdominal abscess acute enterocutaneous fistula not identified during yesterday surgery, S/p incisional hernia repair and robotic lysis of adhesions on 09/17/2024 Status post exploratory laparotomy, postoperative day 1., on mechanical ventilation sedated On IV antibiotics Status post surgery removal of infected mesh, s/p Planned abdominal re-exploration Repair of intestinal enterotomy, Explantation of mesh , Placement of wound VAC he is s/p repeat lap/small bowel resection for Enterocutaneous fistula, open abdomen done by Dr Westbrook on 10/25/2024 Hypertension Currently normotensive Hold lisinopril and hydrochlorothiazide Off of pressors agents h/o Depression/anxiety Severe protein calorie malnutrition On TPN Normocytic anemia Status post transfusion 1 unit of packed red blood cells Not a complication of surgery Monitor daily CBC DVT gastropathy prophylaxis addressed Date of Service: Oct 28, 2024 Billing Provider: ROXANNE ULRICH DO Common Visit Codes: [id number] INP/OBS CARE(HIGH) ROXANNE ULRICH DO Oct 28, 2024 19:11
--- NOTE | 2024-10-28 19:57 | RADIOLOGY REPORT ---
CHEST RADIOGRAPH REASON FOR EXAM: Coarse breath sounds appreciated in all listening torrez COMPARISON: DI CHEST,SINGLE VIEW on DOS: 10/26/24, DI CHEST,SINGLE VIEW on DOS: 10/25/24, DI CHEST,SING LE VIEW on DOS: 10/25/24, DI CHEST,SINGLE VIEW on DOS: 10/24/24, DI CHEST,SINGLE VIEW on DOS: 10/23/24 TECHNIQUE: One view of the chest is provided FINDINGS: The cardiomediastinal silhouette is stable. The enteric tube and endotracheal tube have be en removed. There is a right upper extremity PICC with the catheter tip projecting over mid SVC. Ther e is perihilar airspace disease bilaterally, decreased compared with the prior study. There are impr rachel inspiratory volumes. There is trace bilateral pleural effusion, decreased compared with the sandi or study. There is no pneumothorax. IMPRESSION: Pick perihilar airspace disease, decreased compared with the prior study. Trace bilateral pleural eff usion, decreased.
[2024-10-29] VITALS (21 sets, daily range): BP systolic 123–148; BP diastolic 73–93; PULSE 66–87; RESP 10–24; TEMP 97.3–97.8; O2SAT 79–99
[2024-10-29 02:33] LABS: MEAN PLATELET VOLUME 7.2 FL (7.4-10.4); RED CELL DISTRIBUTION WIDTH 14.5 % (11.5-14.5)
[2024-10-29 02:50] LABS: CREATININE 0.40 MG/DL (0.60-1.10); PHOSPHORUS 2.7 MG/DL (2.3-4.5); TOTAL CARBON DIOXIDE 27.0 MMOL/L (24-32); eCRCL 223 ML/MIN; eGFR > 90 ML/MIN
[2024-10-29] MEDS: HYDROmorph/NS 0.2 mg/ml PCA 100 ML IV SCH (15:00)
[2024-10-29] MEDS ORDERED: HYDROmorph/NS 0.2 mg/ml PCA 100 ML IV SCH (15:00)
[2024-10-29] MEDS ORDERED: HYDROmorphone inj. 0.5 MG/0.5 ML DISP.SYRIN IV PRN (19:10)
--- NOTE | 2024-10-29 21:26 | PROGRESS NOTE ---
Progress Note ID Providers to CC ~ Progress Note Progress Note: pain improving-passing gas/vss/abd-persistent drainage/labs noted a/p 1. s/p ex lap with mesh removal-probable recurrent fistula but clinically improving/cont supportive care ANGELITO DURBIN MD Oct 29, 2024 21:26
--- NOTE | 2024-10-29 23:54 | PROGRESS NOTE ---
Daily Progress Note Providers to CC ~ Antibiotic Timeout Antibiotic Ordered?: Yes Subjective The patient is now on a clear liquid diet in his passing gas has no acute complaints I stopped the MUCK OPERATOR in and added the PRN IV Dilaudid Objective Vital Signs Date Time Temp Pulse Resp B/P (MAP) Pulse Ox O2 Delivery O2 Flow Rate FiO2 10/29/24 21:12 20 10/29/24 20:00 97 Room Air 10/29/24 18:30 90 10/29/24 16:00 97.8 127/80 (96) 10/29/24 04:34 0.0 21 Result Diagram: 10/29/2421510/29/24215 Gen. No acute distress alert and oriented 4 Lungs clear to ascultation bilaterally, no wheezes rales or rhonchi appreciated Heart normal sinus rhythm no murmurs rubs or clicks noted Abdomen firm and distended-midline dressing is placed Lower extremities no clubbing cyanosis, nor edema appreciated bilaterally Coagulation Studies Laboratory Tests Test 10/13/24 22:09 Prothrombin Time 11.0 SECONDS (9.0-12.0) INR International Normalized Ratio 1.1 INR Activated Partial Thromboplast Time 25 SECONDS (22-32) Coagulation Comments Problem\Assessment\Plan Postoperative wound dehiscence/ abdominal abscess general surgery DR. RIDDLE on the case managing surgical problems Acute abdominal abscess acute enterocutaneous fistula not identified during yesterday surgery, S/p incisional hernia repair and robotic lysis of adhesions on 09/17/2024 Status post exploratory laparotomy, postoperative day 1., on mechanical ventilation sedated On IV antibiotics Status post surgery removal of infected mesh, s/p Planned abdominal re-exploration Repair of intestinal enterotomy, Explantation of mesh , Placement of wound VAC he is s/p repeat lap/small bowel resection for Enterocutaneous fistula, open abdomen done by Dr Westbrook on 10/25/202410/29 is doing well and is on a clear liquid diet, MUCK OPERATOR was discontinued today and PRN IV Dilaudid is ordered Hypertension Currently normotensive Hold lisinopril and hydrochlorothiazide Off of pressors agents h/o Depression/anxiety Severe protein calorie malnutrition On TPN Normocytic anemia Status post transfusion 1 unit of packed red blood cells Not a complication of surgery Monitor daily CBC 10/29 hemoglobin has stabilized DVT gastropathy prophylaxis addressed Disposition: LTAC Date of Service: Oct 29, 2024 Billing Provider: ROXANNE ULRICH DO Common Visit Codes: [id number] INP/OBS CARE(HIGH) ROXANNE ULRICH DO Oct 29, 2024 23:54
[2024-10-30 02:00] VITALS: BP 143/91; PULSE 70; RESP 23; TEMP 97.6; O2SAT 96
[2024-10-30 04:13] LABS: MEAN PLATELET VOLUME 7.0 FL (7.4-10.4); RED CELL DISTRIBUTION WIDTH 14.8 % (11.5-14.5)
[2024-10-30 04:34] LABS: CREATININE 0.47 MG/DL (0.60-1.10); PHOSPHORUS 3.0 MG/DL (2.3-4.5); TOTAL CARBON DIOXIDE 25.5 MMOL/L (24-32); eCRCL 189 ML/MIN; eGFR > 90 ML/MIN
[2024-10-30 06:00] VITALS: BP_SYST 131; BP_SYST 139; BP_DIAS 77; BP_DIAS 81; PULSE 78; PULSE 96; RESP 15; RESP 27; TEMP 97.2; TEMP 98.2; O2SAT 98; O2SAT 99
[2024-10-30] MEDS: potassium Cl 20 mEq SR tablet NG PRN (07:45)
[2024-10-30 08:00] VITALS: RESP 15; O2SAT 98
[2024-10-30 11:00] VITALS: BP 139/77; PULSE 96; RESP 27; TEMP 98.2; O2SAT 99
[2024-10-30 15:00] VITALS: BP 136/72; PULSE 102; RESP 18; TEMP 97.9; O2SAT 97
--- NOTE | 2024-10-30 21:09 | DISCHARGE SUMMARY ---
Discharge Summary Providers to CC ~ Discharge Summary Admission Diagnosis: Enterocutaneous fistula, open abdomen Hospital Course DATE OF ADMISSION: 10/13/2024 DATE OF DISCHARGE: 10/30/2024 Discharge Diagnosis\\Comment: Postoperative wound dehiscence/abdominal abscess/ acute enterocutaneous fistula, hypertension, depression with anxiety, normocytic anemia, transient respiratory failure Operations\\Procedures: Exploratory laparotomy and excision of infected mesh on 10/16/2024 Exploratory laparotomy with extensive enterolysis and placement of wound VAC on 10/19/2024 Planned abdominal re-exploration with repair of intestinal enterotomy and exp loration of mesh and placement of wound VAC on 10/22/2024 Repeat laparotomy with small-bowel resection on 10/25/2024 Consultants: Dr. Andre Rodríguez general surgeon, Dr. Heladio Westbrook general surgeon, the hair boiler operator team including Dr. Garvey and Dr. Elias Complications: None Condition on DC: Stable for transfer Discharge Summary: The patient was admitted by resident physician IVY Fernandez, under the supervision of KATINA PORTILLO MD with the following HPI:"This is a 48-year-old male with a history of hypertension was transferred from ED of [facility] for management of abdominal wound infection. Patient states that he noticed some discharge from his surgical site one week ago which was foul-smelling. He did call the office of the surgeon and inform them and was told that would resolve on itself. However the pain and discharge got worse progressively in the last one week and now he has copious discharge from the surgical site. He underwent robotic capable of incisional hernia using mesh, robotic lysis of adhesions by Dr. Westbrook on 09/27/2024. He has yousif on the surgical site and is unsure when they were supposed to be removed. He denies any fever and has a about 5/10 abdominal pain at the surgical site. ED course at [place]: Patient was administered Keflex 500 mg and Zosyn 3.[address] was done which showed multiple communicating rim enhancing fluid and gas containing collections in the anterior abdominal wall and throughout the pelvis with largest discrete pockets measured. Small volume pneumoperitoneum likely postsurgical. Patient was also given some potassium replacement." The CT scan demonstrated a irregular shaped fluid collection with a foci of air in the left upper abdomen measuring 2.8 x 3.8 x 2.3 cm the patient had four different surgical procedures during the hospitalization as per the operation suction of the discharge summary- the patient was transiently intubated postop on 10/19/2024 and then extubated on the 10/26/2024 and no longer required oxygen the rest of the hospitalization The patient has a fair amount of secretions however and did suction per respiratory therapy and the patient also was suctioning himself as well with a younker. The patient did drop his hemoglobin during hospitalization initially his hemoglobin was 11.4 which downtrended slowly and was 6.8 on the morning of the the patient was transfused 1 unit of packed red blood cells in his hemoglobin improved and on the day discharge was 9.0 this was not a complication of surgery to be expected with multiple surgeries. The patient has a history of hypertension in his blood pressure was under acc eptable control during hospitalization The patient is on multiple antidepressant antianxiety medicines which were restarted Gen. No acute distress alert and oriented 4 Lungs clear to ascultation bilaterally, no wheezes rales or rhonchi appreciated Heart normal sinus rhythm no murmurs rubs or clicks noted Abdomen firm and distended-midline dressing is placed Lower extremities no clubbing cyanosis, nor edema appreciated bilaterally The patient is medically cleared to be transferred to LTAC on 10/30/2024- the patient remains on TPN and IV cefepime The patient was seen and evaluated on day of discharge. Time spent on discharge 40 minutes *Problems/Diagnosis: (1) Abdominal abscess Status: Acute Total Time Spent on D/C: > 30 Minutes Date of Service: Oct 30, 2024 Billing Provider: ROXANNE ULRICH DO Common Visit Codes: [id number]-BYO/OBS DISCH DAY >30min ROXANNE ULRICH DO Oct 30, 2024 21:01
== END 2024-10-30 15:05 | DRG 710 ==
LOC: ER 21:55 → ED HOLD 23:30 → EDBEDREQ 10-14 01:31 → ORTHO 4S 10-14 02:15 → SUR 3N 10-17 11:35 → CICU 2S 10-19 19:06 → PCU 3S 10-29 15:40
PROVIDERS: ADMIT Internal Medicine; ATTEND Family Medicine
PROC: BW211ZZ Computerized Tomography (CT Scan) of Abdomen and Pelvis using Low Osmolar Contrast (ICD-10-PCS; 2024-10-15)
PROC: 03HY32Z Insertion of Monitoring Device into Upper Artery, Percutaneous Approach (ICD-10-PCS; 2024-10-16)
PROC: 3E0T3BZ Introduction of Anesthetic Agent into Peripheral Nerves and Plexi, Percutaneous Approach (ICD-10-PCS; 2024-10-16)
PROC: 0WPF0JZ Removal of Synthetic Substitute from Abdominal Wall, Open Approach (ICD-10-PCS; principal; 2024-10-16 12:46)
PROC: 0DNB0ZZ Release Ileum, Open Approach (ICD-10-PCS; 2024-10-19)
PROC: 0DNA0ZZ Release Jejunum, Open Approach (ICD-10-PCS; 2024-10-19)
PROC: 0BH17EZ Insertion of Endotracheal Airway into Trachea, Via Natural or Artificial Opening (ICD-10-PCS; 2024-10-19)
PROC: 5A1955Z Respiratory Ventilation, Greater than 96 Consecutive Hours (ICD-10-PCS; 2024-10-19)
PROC: 02HV33Z Insertion of Infusion Device into Superior Vena Cava, Percutaneous Approach (ICD-10-PCS; 2024-10-20)
PROC: B548ZZA Ultrasonography of Superior Vena Cava, Guidance (ICD-10-PCS; 2024-10-20)
PROC: 0WPF0JZ Removal of Synthetic Substitute from Abdominal Wall, Open Approach (ICD-10-PCS; 2024-10-22)
PROC: 0DQA0ZZ Repair Jejunum, Open Approach (ICD-10-PCS; 2024-10-22)
PROC: 0DBN0ZZ Excision of Sigmoid Colon, Open Approach (ICD-10-PCS; 2024-10-25)
PROC: 30233N1 Transfusion of Nonautologous Red Blood Cells into Peripheral Vein, Percutaneous Approach (ICD-10-PCS; 2024-10-27)
PROC: 02HV33Z Insertion of Infusion Device into Superior Vena Cava, Percutaneous Approach (ICD-10-PCS; 2024-10-28)
PROC: B548ZZA Ultrasonography of Superior Vena Cava, Guidance (ICD-10-PCS; 2024-10-28)
DX: A41.81 Sepsis due to Enterococcus (principal); J96.01 Acute respiratory failure with hypoxia; K63.1 Perforation of intestine (nontraumatic); K65.1 Peritoneal abscess; N19 Unspecified kidney failure; J96.02 Acute respiratory failure with hypercapnia; E43 Unspecified severe protein-calorie malnutrition; T85.79XA Infection and inflammatory reaction due to other internal prosthetic devices, implants and grafts, initial encounter; K63.2 Fistula of intestine; K65.8 Other peritonitis; E87.3 Alkalosis; T81.31XA Disruption of external operation (surgical) wound, not elsewhere classified, initial encounter; E87.8 Other disorders of electrolyte and fluid balance, not elsewhere classified; L02.211 Cutaneous abscess of abdominal wall; F32.A Depression, unspecified; F41.9 Anxiety disorder, unspecified; K43.2 Incisional hernia without obstruction or gangrene; I10 Essential (primary) hypertension; K46.9 Unspecified abdominal hernia without obstruction or gangrene; K21.9 Gastro-esophageal reflux disease without esophagitis; E87.6 Hypokalemia; E87.1 Hypo-osmolality and hyponatremia; E83.51 Hypocalcemia; D64.9 Anemia, unspecified; Y83.8 Other surgical procedures as the cause of abnormal reaction of the patient, or of later complication, without mention of misadventure at the time of the procedure; Z88.8 Allergy status to other drugs, medicaments and biological substances; Z90.49 Acquired absence of other specified parts of digestive tract; Y92.89 Other specified places as the place of occurrence of the external cause; Z68.22 Body mass index [BMI] 22.0-22.9, adult
CPT/HCPCS: 20950; 36415; 36430; 36569; 36600; 71045; 74018; 74177; 76942; 80053; 80061; 80202; 81001; 82272; 82728; 82803; 82948; 83036; 83540; 83550; 83605; 83690; 83735; 83880; 84100; 84132; 84134; 84145; 84478; 84484; 85007; 85008; 85018; 85025; 85610; 85730; 86140; 86885; 86900; 86901; 86920; 87040; 87070; 87075; 87077; 87081; 87186; 93005; 94002; 94003; 94760; 96374; 97110; 97116; 97161; 97164; 97530; 99291; A4215; A4333; A4618; A5200; A6196; A6213; A6253; A6258; A6407; A6449; A7000; C1751; C1758; G0378; J0131; J0666; J0692; J0694; J0780; J1100; J1120; J1171; J1644; J1938; J2003; J2185; J2250; J2270; J2405; J2470; J2704; J2710; J3010; J3373; J3475; J3480; J3490; J7030; J7040; J7050; J7060; J7120; P9016; P9045; P9047; Q9963; Q9967

== ENCOUNTER 2025-01-24 08:18 | Outpatient (CLI) | payer MEDICAID ==
[~2025-01-24 08:18] MED LIST changes: +FLUO20CA41 PO; +LISI40TA20 PO
--- NOTE | 2025-01-24 12:13 | RADIOLOGY REPORT ---
Indication: INCISIONAL HERNIA WITHOUT OBSTRUCTION OR GANGRENE Technique: CT axial images of the abdomen and pelvis are obtained without contrast. Coronal and sagittal reformats were obtained. Radiation Dose Information: CTDI volume is 9.7 mGy. Dose-length product is 470 mGy*cm Comparison: CT CT ABDOMEN PELVIS W/ IV ORAL CONTRAST on DOS: 10/15/24, CT ABDOMEN+PELVIS W IV CON on DOS: 10/13/24, CT CT ABDOMEN PELVIS on DOS: 08/15/24, CT CT ABDOMEN PELVIS W/ ORAL CONTRAST on DOS: 05/27/24 FINDINGS: There is limited interpretation of the abdomen and pelvis without administration of intravenous contrast. Lung bases demonstrate no pleural effusion Adrenal glands, spleen, pancreas and liver unremarkable in shape. Cholecystectomy. The kidneys demonstrate no hydronephrosis, nephrolithiasis. Stomach partially distended. Small bowel loops are moderately distended. Colonic diverticular disease. Moderate volume stool in the colon. Normal appendix. Contrast extends to the rectum. There Diastasis rectus abdominis muscle with ventral wall hernia measuring 13.2 cm transverse by 2.1 cm AP. Bladder partially distended. Penile prosthesis /pump. No free pelvic fluid. Mild thoracolumbar degenerative disc disease. IMPRESSION: Limited evaluation without intravenous contrast. Diastasis rectus abdominus with ventral wall hernia measuring 13.2 x 2.1 cm as described above containing bowel loops. No evidence for obstruction. The diastasis of the rectus abdominis has significantly increased since the prior examination from 10/15/2024. Colonic diverticular disease. Other findings as described.
== END 2025-01-24 23:59 | disposition home or self-care (01) ==
LOC: RAD 08:18
PROVIDERS: ATTEND Surgery
DX: K57.30 Diverticulosis of large intestine without perforation or abscess without bleeding (principal); K43.2 Incisional hernia without obstruction or gangrene; N32.89 Other specified disorders of bladder; M51.35 Other intervertebral disc degeneration, thoracolumbar region
CPT/HCPCS: 70450

== ENCOUNTER 2025-02-24 05:41 | Inpatient (IN) | payer MEDICAID ==
[2025-02-17 10:30] LABS: MEAN PLATELET VOLUME 7.0 FL (7.4-10.4); PRE OP HEMATOCRIT 37.7 % (42.0-52.0); PRE OP HEMOGLOBIN 12.4 g/dL (14.0-17.9); PRE OP PLATELET COUNT 542 X10'3 (140-440); PRE OP WHITE BLOOD COUNT 8.3 10'3 (4.8-10.8); RED CELL DISTRIBUTION WIDTH 19.5 % (11.5-14.5)
[2025-02-17 10:43] LABS: PRE OP INR 1.1 INR; PRE OP PARTIAL THROMB. TIME 28.0 SECONDS (22-32); PRE OP PROTIME 10.9 SECONDS (9.0-12.0)
[2025-02-17 10:45] LABS: CREATININE 0.89 MG/DL (0.60-1.10); PRE OP ALT 23 U/L (30-65); PRE OP ANION GAP 9 (8-16); PRE OP AST 24 U/L (10-37); PRE OP BILIRUB, TOTAL 0.3 MG/DL (0.0-1.0); PRE OP GLUCOSE 116 MG/DL (70-104); PRE OP POTASSIUM 3.6 MMOL/L (3.4-5.1); PRE OP SODIUM 136 MMOL/L (135-145); TOTAL CARBON DIOXIDE 29.0 MMOL/L (24-32); eGFR > 90 ML/MIN
[2025-02-17 10:48] LABS: LEUKOCYTE ESTERASE ,URINE NEGATIVE (Neg); NITRITES, URINE NEGATIVE (Neg); OCCULT BLOOD,URINE NEGATIVE (Neg)
[2025-02-17 10:51] LABS: UA COLLECTION TYPE NON-SPECIFIED
[2025-02-17 10:56] LABS: MUCUS STRANDS NONE SEEN /LPF (Neg); SQUAMOUS EPITHELIAL CELL,UR FEW /LPF (FEW)
[2025-02-17 11:13] LABS: PLATELET ESTIMATE INCREASED
--- NOTE | 2025-02-17 11:28 | RADIOLOGY REPORT ---
DI CHEST,TWO VIEWS CLINICAL HISTORY: pain COMPARISON: DI CHEST,SINGLE VIEW on DOS: 10/28/24, DI CHEST,SINGLE VIEW on DOS: 10/26/24, DI CHEST,SINGLE VIEW on DOS: 10/25/24, DI CHEST,SINGLE VIEW on DOS: 10/25/24, DI CHEST,SINGLE VIEW on DOS: 10/24/24 TECHNIQUE: Frontal and lateral view of the chest was obtained FINDINGS: Lines and Tubes: None Lungs: No focal consolidation. Pleura: No effusion. No pneumothorax. Cardiomediastinal contours: Unremarkable Bones: No acute osseous abnormality. IMPRESSION: No acute cardiopulmonary disease.
[2025-02-24] VITALS (30 sets, daily range): BP systolic 101–163; BP diastolic 69–106; PULSE 67–117; RESP 12–22; TEMP 97.6–98.3; O2SAT 92–100
[~2025-02-24] VITALS: Ht 170.2 cm; Wt 69.2 kg
[~2025-02-24 05:41] MED LIST changes: -FLUO20CA41 PO; +GABA-1405 PO; -GABA300C PO; +HYDR50TA46 PO; -LISI40TA20 PO; -LURA120T2 PO; -ONDA-243 PO
[2025-02-24] MEDS ORDERED: LURA120T PO (06:26)
[2025-02-24] MEDS: ringers solution, lacted 1,000 ML IV SCH (06:27)
[2025-02-24] MEDS: ceFOXitin 2GM-NS 100mL ADDvant 100 ML IV ONE (06:28)
[2025-02-24] MEDS ORDERED: gentamicin 40 MG/1 ML inj ONE (06:52)
[2025-02-24] MEDS ORDERED: clindamycin-Cleocin 900mg/D5W 50 ML IV ONE (06:52)
[2025-02-24] MEDS ORDERED: labetalol 20mg/4ml (5mg/ml) syringe IV PRN (08:30)
[2025-02-24] MEDS ORDERED: ringers solution, lacted 1,000 ML IV SCH (08:30)
[2025-02-24] MEDS ORDERED: ondansetron/PF 4mg/2ml inj IV PRN (08:30)
[2025-02-24] MEDS ORDERED: fentaNYL/PF 50MCG/1 ML 2ML syringe IV PRN (08:30)
[2025-02-24] MEDS ORDERED: HYDROmorphone/PF 0.2 MG/ML SYRINGE IV PRN ×2 (08:30)
[2025-02-24] MEDS ORDERED: enalaprilat 1.25mg/ml 2ml vial IV PRN (08:30)
[2025-02-24] MEDS ORDERED: midazolam 1 mg/ML 2ml injection ONE (08:49)
[2025-02-24] MEDS ORDERED: fentaNYL /PF 50mcg/ml 5ml ampule ONE ×2 (08:50→10:08)
[2025-02-24] MEDS ORDERED: rocuronium 10mg/ml inj IV ONE ×2 (08:58→11:33)
[2025-02-24] MEDS ORDERED: propofol inj 20 ML IV ONE (08:58)
[2025-02-24] MEDS ORDERED: glycopyrrolate 0.2mg/ml inj ONE (09:21)
[2025-02-24] MEDS ORDERED: labetalol 20mg/4ml (5mg/ml) syringe IV ONE (10:11)
[2025-02-24] MEDS ORDERED: ePHEDrine 50MG/ML INJ. ONE (11:33)
[2025-02-24] MEDS ORDERED: dexamethasone sod phosphate 4mg/ml inj. ONE (11:43)
[2025-02-24] MEDS ORDERED: ondansetron/PF 4mg/2ml inj ONE (11:43)
[2025-02-24] MEDS ORDERED: acetaminophen 1,000mg/100ml IV 100 ML IV ONE (11:45)
--- NOTE | 2025-02-24 12:08 | OPERATIVE REPORT ---
Operative Report Providers to CC ~ Date of Procedure: Feb 24, 2025 Pre-Operative Diagnosis: recurrent incisional herna Post-Operative Diagnosis SAME as PRE-Op Procedure Performed repair recurrent incisional hernia with bilat component separation/small bowel resection/partial transverse colectomy Surgeon: maria eugenia Emery none Anesthesiologist: Anthony Carey Type of Anesthesia: General Findings: extensive adhesions involving small bowel and transverse colon Estimated Blood Loss: 100 ml Specimen Removed: small bowel, colon, mesh, hernia sac ANGELITO DURBIN MD Feb 24, 2025 12:08
[2025-02-24] MEDS: morphine 4 MG/ML inj SYRINge IV PRN (12:46)
[2025-02-24] MEDS: fentaNYL/PF 50MCG/1 ML 2ML syringe IV PRN (13:58)
[2025-02-24] MEDS: HYDROmorph/NS 0.2 mg/ml PCA 100 ML IV SCH (14:27)
[2025-02-24] MEDS: ceFOXitin 1 GM/D5W 50mL IVPB 50 ML IV SCH (17:18)
[2025-02-24] MEDS: potassium CL 20mEq in D5-1/2NS 1,000 ML IV SCH (20:10)
[2025-02-25] VITALS (9 sets, daily range): BP systolic 152–186; BP diastolic 96–121; PULSE 82–139; RESP 16–22; TEMP 97.5–98.3; O2SAT 91–99
[2025-02-25] MEDS: ondansetron/PF 4mg/2ml inj IV PRN (03:58)
[2025-02-25 04:25] LABS: MEAN PLATELET VOLUME 7.6 FL (7.4-10.4); RED CELL DISTRIBUTION WIDTH 19.9 % (11.5-14.5)
[2025-02-25 04:38] LABS: CREATININE 0.92 MG/DL (0.60-1.10); TOTAL CARBON DIOXIDE 28.2 MMOL/L (24-32); eCRCL 93 ML/MIN; eGFR 88 ML/MIN
--- NOTE | 2025-02-25 07:02 | OPERATIVE REPORT ---
DATE OF SURGERY: 02/24/2025 DICTATING PHYSICIAN: Heladio Westbrook MD PREOPERATIVE DIAGNOSIS: Recurrent incisional hernia. POSTOPERATIVE DIAGNOSIS: Recurrent incisional hernia. PROCEDURES PERFORMED: * Repair of recurrent incisional hernia with bilateral component separation. * Abdominal wall resection. * Partial colectomy. * Lysis of adhesions. SURGEON: Heladio Westbrook MD ROAD HOGGER OPERATOR: Enrique. ANESTHESIA: General/Anthony Carey MD. INDICATIONS FOR OPERATION: The patient is a 49-year-old male who had multiple hernias fixed without recurrence. This was a second surgery for repair. INTRAOPERATIVE FINDINGS: A large recurrent incisional hernia, a large amount of small bowel and colon within the hernia sac with extensive adhesions. Enterotomy of the small bowel and colon were not unexpected and were repaired using partial small bowel resection and partial colectomy. DESCRIPTION OF PROCEDURE: The patient was placed supine on the operating table after induction of general anesthesia and placement of an endotracheal tube. The abdomen was prepped and draped. A midline incision was simply made. The scar was simply excised. The abdominal cavity was entered. There were multiple adhesions between the small bowel and abdominal wall as well as colon and abdominal wall with a large amount of mesh still present. Small bowel was lysed off the abdominal wall as well as the colon and ____ were identified. Adhesions were taken down bilaterally. Small bowel was completely ____. Small bowel resections were performed using the ____ stapler. A [id number] anastomosis was created using a TA-60 stapler. A blind loop of the previous small bowel resection was resected using a TA-60 stapler. There was a clot in the transverse colon. The transverse colon was excised and then put back together in an end-to-end fashion using an EEA 29 stapler and the enterotomy was closed with a TA-60 stapler. The wound was then irrigated with antibiotic-containing solution. Skin flaps were then raised bilaterally back to the midaxillary line. The external oblique aponeurosis was incised bilaterally from the iliac crest to the costal margin, freeing the external oblique off the internal oblique. This allowed the flap to move directly to the midline. After extensive irrigation, ____ was closed with a looped PDS, closing it with 4 sutures of #1 nylon. No mesh was placed given the small bowel and colon resections. Two BAUTISTA drains were subsequently placed. The wound was closed with clips. Dressings were applied. A binder was placed. The patient was transferred to the recovery room in stable condition. Heladio Westbrook MD TID: [id number] RECEIPT: [id number] KB/UDD/TEA
[2025-02-25] MEDS: ketorolac trometh 15mg/ml vial 15 MG/ML ML IV PRN (07:28)
[2025-02-25] MEDS: hydrALAZINE 20mg/ml inj. IV PRN (07:28)
[2025-02-25] MEDS: piperacillin/tazo 3.375gm/50ml 50 ML IV SCH (16:04)
--- NOTE | 2025-02-25 20:19 | PROGRESS NOTE ---
Progress Note ID Providers to CC ~ Progress Note Progress Note: minimal pain/vss/abd-nondistended/labs noted a/p 1. s/p repair incisional hernia-slow progress/cont supportive care ANGELITO DURBIN MD Feb 25, 2025 20:19
[2025-02-25] MEDS: potassium CL 20mEq in D5-1/2NS 1,000 ML IV ONE (22:41)
[2025-02-25] MEDS: PCA WASTE DOCUMENTATION 1 MG ML MC SCH (23:32)
[2025-02-26] VITALS (10 sets, daily range): BP systolic 139–163; BP diastolic 91–105; PULSE 93–124; RESP 11–21; TEMP 97.1–98.6; O2SAT 92–98
[2025-02-26 06:12] LABS: MEAN PLATELET VOLUME 7.5 FL (7.4-10.4); RED CELL DISTRIBUTION WIDTH 19.3 % (11.5-14.5)
[2025-02-26 06:24] LABS: CREATININE 0.79 MG/DL (0.60-1.10); TOTAL CARBON DIOXIDE 26.9 MMOL/L (24-32); eCRCL 108 ML/MIN; eGFR > 90 ML/MIN
--- NOTE | 2025-02-26 16:41 | PROGRESS NOTE ---
Progress Note ID Providers to CC ~ Progress Note Progress Note: PAIN IMPROVING/VSS/ABD-NONDISTENDED/LABS NOTED A/P 1. S/P REPAIR RECURRENT INCISIONAL HERNIA-SLOW PROGRESS/CONT SUPPORTIVE CARE ANGELITO DURBIN MD Feb 26, 2025 16:40
[2025-02-27] VITALS (8 sets, daily range): BP systolic 125–147; BP diastolic 53–104; PULSE 80–110; RESP 12–18; TEMP 97–98.4; O2SAT 95–99
[2025-02-27 06:00] LABS: MEAN PLATELET VOLUME 7.6 FL (7.4-10.4); RED CELL DISTRIBUTION WIDTH 19.8 % (11.5-14.5)
[2025-02-27 06:09] LABS: CREATININE 0.65 MG/DL (0.60-1.10); TOTAL CARBON DIOXIDE 27.5 MMOL/L (24-32); eCRCL 131 ML/MIN; eGFR > 90 ML/MIN
--- NOTE | 2025-02-27 16:18 | PROGRESS NOTE ---
Progress Note ID Providers to CC ~ Progress Note Progress Note: min pain/vss/abd-nondistended/labs noted a/p 1. s/p repair recurrent incisional hernia-persistent ileus/cont supportive care ANGELITO DURBIN MD Feb 27, 2025 16:18
[2025-02-28 06:00] VITALS: BP 118/90; PULSE 71; RESP 17; TEMP 97.4; O2SAT 97
[2025-02-28 07:24] LABS: MEAN PLATELET VOLUME 7.5 FL (7.4-10.4); RED CELL DISTRIBUTION WIDTH 19.6 % (11.5-14.5)
[2025-02-28 07:40] LABS: CREATININE 0.63 MG/DL (0.60-1.10); TOTAL CARBON DIOXIDE 24.3 MMOL/L (24-32); eCRCL 136 ML/MIN; eGFR > 90 ML/MIN
[2025-02-28 08:00] VITALS: RESP 17; O2SAT 97
[2025-02-28 09:43] LABS: PLATELET ESTIMATE NORMAL
[2025-02-28 09:44] LABS: ELLIPTOCYTES FEW
[2025-02-28 11:00] VITALS: BP 133/81; PULSE 78; RESP 22; TEMP 97.5; O2SAT 97
--- NOTE | 2025-02-28 14:12 | PROGRESS NOTE ---
Progress Note ID Providers to CC ~ Progress Note Progress Note: pain improving/vss/abd-min distention/labs noted a/p 1. s/p repair incisional hernia-slow progress/ct abd ANGELITO Leonardo MD Feb 28, 2025 14:12
[2025-02-28 15:00] VITALS: BP 143/62; PULSE 77; RESP 16; TEMP 98.1; O2SAT 98
[2025-02-28 18:00] VITALS: BP 139/89; PULSE 78; RESP 15; TEMP 97.7; O2SAT 97
[2025-02-28] MEDS: enoxaparin 40mg/0.4ml syringe SUBCUT SCH (20:07)
[2025-02-28 22:00] VITALS: BP 130/90; PULSE 80; RESP 15; TEMP 97.2; O2SAT 95
[2025-03-01] VITALS (7 sets, daily range): BP systolic 115–157; BP diastolic 64–94; PULSE 67–76; RESP 12–24; TEMP 96.9–98.4; O2SAT 96–99
[2025-03-01 06:48] LABS: MEAN PLATELET VOLUME 7.2 FL (7.4-10.4); RED CELL DISTRIBUTION WIDTH 19.4 % (11.5-14.5)
[2025-03-01 07:00] LABS: CREATININE 0.53 MG/DL (0.60-1.10); TOTAL CARBON DIOXIDE 28.3 MMOL/L (24-32); eCRCL 161 ML/MIN; eGFR > 90 ML/MIN
--- NOTE | 2025-03-01 16:32 | PROGRESS NOTE ---
Progress Note Dictate Providers to CC CC: MATT RIDDLE ~ Progress Note: Subsequent surgical care on a 49-year-old gentleman who is postoperative day 5, status post open primary repair of a large incisional hernia, recurrent with ileocolic resection and anastomosis. Covering for Dr. Heladio Westbrook over the weekend Patient passing flatus Tolerating ice chips Incision clean, dry, and intact Lower abdominal midline with some prominent bulging Left BAUTISTA drain with no output Right BAUTISTA drain with moderate to high serous output DC left abdominal drain Full liquid diet 1/2 IV fluid rate Antibiotic Ordered?: No Objective Vitals Vital Signs Date Time Temp Pulse Resp B/P (MAP) Pulse Ox O2 Delivery O2 Flow Rate FiO2 03/01/25 15:00 15 03/01/25 15:00 98.4 71 149/94 (112) 97 Room Air 02/28/25 20:00 0.0 02/27/25 22:00 21 Lab Results: 03/01/25 0625 03/01/25 0625 Coagulation Studies Laboratory Tests Test 02/17/25 10:18 Prothrombin Time 10.9 SECONDS (9.0-12.0) INR International Normalized Ratio 1.1 INR Activated Partial Thromboplast Time 28 SECONDS (22-32) MELIDA RIDDLE MD Mar 01, 2025 16:32
[2025-03-01] MEDS: oxyCODONE/APAP 5-325mg tablet PO PRN (17:33)
[2025-03-02 06:00] VITALS: BP 128/84; PULSE 63; RESP 11; TEMP 97.4; O2SAT 97
[2025-03-02] MEDS: oxyCODONE/APAP 5-325mg tablet PO PRN (09:38)
[2025-03-02 11:45] VITALS: BP 136/83; PULSE 63; RESP 16; O2SAT 99
--- NOTE | 2025-03-02 14:39 | PROGRESS NOTE ---
Progress Note Dictate Providers to CC CC: MATT RIDDLE ~ Progress Note: Subsequent surgical care on a 49-year-old gentleman who is postoperative day 6, status post open primary repair of a large incisional hernia, recurrent with ileocolic resection and anastomosis. Covering for Dr. Heladio Westbrook over the weekend Patient passing flatus Tolerating full liquids Incision clean, dry, and intact Lower abdominal midline with some prominent bulging Right BAUTISTA drain with decreasing serous output Continue full liquid diet until bowel movement Milk of magnesia DC IV fluids Home medications Antibiotic Ordered?: No Objective Vitals Vital Signs Date Time Temp Pulse Resp B/P (MAP) Pulse Ox O2 Delivery O2 Flow Rate FiO2 03/02/25 11:45 63 16 136/83 (100) 99 Room Air 03/02/25 08:00 0.0 03/02/25 06:00 97.4 02/27/25 22:00 21 Lab Results: 03/01/25 0625 03/01/25 0625 Coagulation Studies Laboratory Tests Test 02/17/25 10:18 Prothrombin Time 10.9 SECONDS (9.0-12.0) INR International Normalized Ratio 1.1 INR Activated Partial Thromboplast Time 28 SECONDS (22-32) MELIDA RIDDLE MD Mar 02, 2025 14:39
[2025-03-02] MEDS: magnesium hydroxide 30ml (MOM) UD suspension PO ONE (15:30)
[2025-03-02] MEDS ORDERED: non-formulary drug (Gabapentin 1 TAB) PO SCH (16:00)
[2025-03-02 18:00] VITALS: BP 135/81; PULSE 74; RESP 16; TEMP 98; O2SAT 97
[2025-03-02] MEDS: busPIRone 15mg tablet PO SCH (20:19)
[2025-03-02 22:00] VITALS: BP 114/64; PULSE 72; RESP 12; TEMP 97.2; O2SAT 99
[2025-03-03] VITALS (8 sets, daily range): BP systolic 121–137; BP diastolic 77–85; PULSE 60–97; RESP 14–18; TEMP 97.7–98.7; O2SAT 95–97
[2025-03-03 07:57] LABS: MEAN PLATELET VOLUME 7.2 FL (7.4-10.4); RED CELL DISTRIBUTION WIDTH 19.9 % (11.5-14.5)
[2025-03-03] MEDS: pantoprazole 40mg Tablet.DR PO SCH (08:28)
[2025-03-03] MEDS: ESCITALOPRAM 10 mg tablet 10 MG TABLET PO SCH (08:29)
[2025-03-03 09:00] LABS: CREATININE 0.70 MG/DL (0.60-1.10); TOTAL CARBON DIOXIDE 28.5 MMOL/L (24-32); eCRCL 122 ML/MIN; eGFR > 90 ML/MIN
--- NOTE | 2025-03-03 14:50 | PROGRESS NOTE ---
Progress Note ID Providers to CC ~ Progress Note Progress Note: doing well/advance diet ANGELITO DURBIN MD Mar 03, 2025 14:50
[2025-03-04 06:00] VITALS: BP 148/88; PULSE 90; RESP 16; TEMP 98.9; O2SAT 96
[2025-03-04 08:00] VITALS: RESP 18; O2SAT 97
[2025-03-04 11:00] VITALS: BP 145/84; PULSE 100; RESP 16; TEMP 99.1; O2SAT 96
--- NOTE | 2025-03-04 12:23 | PROGRESS NOTE ---
Progress Note ID Providers to CC ~ Progress Note Progress Note: doing well/dc ANGELITO DURBIN MD Mar 04, 2025 12:22
[2025-03-04 14:15] VITALS: RESP 16
== END 2025-03-04 14:30 | disposition home or self-care (01) | DRG 230 ==
LOC: PAS IN 05:41 → SUR 3N 15:40 → PCU 3S 02-25 16:29
PROVIDERS: ADMIT Surgery; ATTEND Surgery
PROC: 0DBL0ZZ Excision of Transverse Colon, Open Approach (ICD-10-PCS; 2025-02-24)
PROC: 0DNL0ZZ Release Transverse Colon, Open Approach (ICD-10-PCS; 2025-02-24)
PROC: 0DN80ZZ Release Small Intestine, Open Approach (ICD-10-PCS; 2025-02-24)
PROC: 0WQF0ZZ Repair Abdominal Wall, Open Approach (ICD-10-PCS; 2025-02-24)
PROC: 0DB80ZZ Excision of Small Intestine, Open Approach (ICD-10-PCS; principal; 2025-02-24 08:51)
DX: K43.2 Incisional hernia without obstruction or gangrene (principal); K66.0 Peritoneal adhesions (postprocedural) (postinfection); Z88.8 Allergy status to other drugs, medicaments and biological substances
CPT/HCPCS: 36415; 71046; 80048; 80053; 81001; 82948; 85008; 85025; 85610; 85730; 86885; 86900; 86901; 87081; A4215; A4615; A4618; A6253; A6258; A6449; A7000; C1758; G0378; J0131; J0360; J0694; J1100; J1171; J1580; J1650; J1885; J2250; J2270; J2405; J2543; J2704; J2710; J3010; J3480; J3490; J7120